=== PATIENT | male | born 1985 | race Caucasian/White ===

== ENCOUNTER 2016-08-08 22:03 | Emergency (ER) | payer OTHER ==
[2016-08-08 22:28] VITALS: BP 125/65; PULSE 88; RESP 18; TEMP 98.3
[2016-08-08] MEDS ORDERED: CYCLOBENZAPRINE 10MG STARTER 3 TAB BTL PO STA (22:42)
[2016-08-08] MEDS ORDERED: ACET/COD 300 MG/30 MG STARTER PACK 6 TAB BTL PO STA (22:42)
--- NOTE | 2016-08-08 22:46 | ED ---
Back Pain HPI - General Chief Complaint: Back Pain/Injury Stated Complaint: Back Pain Time Seen by Provider: 08/08/16 22:26 Source: patient, RN notes reviewed, old records reviewed Limitations: no limitations - History of Present Illness Initial Comments: Patient is a 31-year-old male with chief complaint of lower back pain for approximately 3 days. Patient reports that he thinks that this is caused from walking up incorrectly. States that the pain was fine 2 days ago however today it became much worse. He reports he took one of his mother's tramadol. Patient states that the pain is mainly over the lower back pain. Patient denies any recent fever, chills, shortness of breath, chest pain, back pain, abdominal pain, nausea vomiting, numbness or tingling, dysuria or hematuria, constipation or diarrhea, headaches or visual changes, or any other current symptoms - Related Data Home Medications Medication Instructions Recorded Confirmed INSULIN LISPRO (humaLOG) [humaLOG] 18 units SQ AC-TID 02/21/14 03/17/16 Omeprazole [PriLOSEC] 20 mg PO AC-BRKFST 10/02/15 03/17/16 Previous Rx's Medication Instructions Recorded Syringe & Needle,Insulin,1 ml 1 syr SQ DIRECTED #25 each 02/21/14 [Insulin Syringe 29G 1/2" 1ml] Insulin Aspart [NovoLOG] 18 unit SQ DAILY #1 bottle 06/19/15 Azithromycin [Zithromax Z-pack] 250 mg PO DIRECTED #6 tab 03/17/16 Promethazine/Dextromethorphan 5 ml PO TID #60 ml 03/17/16 [Phenergan DM Syrup] Pseudoephedrine 12Hr [Sudafed 12Hr] 120 mg PO Q12H #10 tablet.er 03/17/16 Acetaminophen-Codeine 300-30mg 1 tab PO Q4H PRN #12 tablet 08/08/16 [Tylenol #3] Cyclobenzaprine [Flexeril] 10 mg PO TID #30 tab 08/08/16 Allergies Allergy/AdvReac Type Severity Reaction Status Date / Time No Known Allergies Allergy Verified 03/17/16 21:27 Review of Systems ROS Statement: Those systems with pertinent positive or pertinent negative responses have been documented in the HPI. ROS Other: All systems not noted in ROS Statement are negative. Past Medical History Past Medical History: Diabetes Mellitus History of Any Multi-Drug Resistant Organisms: None Reported Additional Past Surgical History / Comment(s): undescended testicle Past Psychological History: No Psychological Hx Reported Smoking Status: Never smoker Past Alcohol Use History: None Reported Past Drug Use History: None Reported General Exam Limitations: no limitations General appearance: alert, in no apparent distress Head exam: Present: atraumatic, normocephalic, normal inspection Eye exam: Present: normal appearance, PERRL, EOMI. Absent: scleral icterus, conjunctival injection, periorbital swelling ENT exam: Present: normal exam, mucous membranes moist Neck exam: Present: normal inspection. Absent: tenderness, meningismus, lymphadenopathy Respiratory exam: Present: normal lung sounds bilaterally. Absent: respiratory distress, wheezes, rales, rhonchi, stridor Cardiovascular Exam: Present: regular rate, normal rhythm, normal heart sounds. Absent: systolic murmur, diastolic murmur, rubs, gallop, clicks GI/Abdominal exam: Present: soft, normal bowel sounds. Absent: distended, tenderness, guarding, rebound, rigid Extremities exam: Present: normal inspection, full ROM, normal capillary refill. Absent: tenderness, pedal edema, joint swelling, calf tenderness Back exam: Present: normal inspection, tenderness (lumbar spine tenderness. ) Neurological exam: Present: alert, oriented X3, CN II-XII intact Psychiatric exam: Present: normal affect, normal mood Skin exam: Present: warm, dry, intact, normal color. Absent: rash Course Vital Signs 08/08/16 22:22 Temperature 98.3 F Pulse Rate 88 Respiratory 18 Rate Blood Pressure 125/65 O2 Sat by Pulse 98 Oximetry Medical Decision Making - Medical Decision Making Patient is a 31 year old male with lumbar spine pain for 3 days, worse with movement. Patient denies saddle anesthesias and pain radiating down the leg. Patient given flexeril, and tylenol 3. Patient advised to follow up with PCP. Patient understands treatment plan and will comply. Xray is negative for any acute process. Disposition Clinical Impression: Lower back pain Disposition: HOME SELF-CARE Condition: Good Instructions: Acute Low Back Pain (ED) Additional Instructions: Patient advised to rest, apply heat and ice to the back and to do passive stretching. Follow-up with primary care provider in the next 1-2 days. Return for any alarming signs or symptoms occur. Prescriptions: Acetaminophen-Codeine 300-30mg [Tylenol #3] 1 tab PO Q4H PRN #12 tablet PRN Reason: Pain Cyclobenzaprine [Flexeril] 10 mg PO TID #30 tab Referrals: Luis Fernando Delgado DO [Primary Care Provider] - 1-2 days Time of Disposition: 23:00
--- NOTE | 2016-08-08 23:25 | XR ---
EXAMINATION TYPE: XR lumbar spine 2 or 3V DATE OF EXAM: 08/08/2016 10:42 PM COMPARISON: NONE HISTORY: Back pain today TECHNIQUE: 3 views FINDINGS: Vertebra have fairly normal spacing and alignment. Posterior elements are intact. Sacroilia c joints appear normal. I see no compression fracture. IMPRESSION: Negative lumbar spine exam.
== END 2016-08-08 23:45 | disposition home or self-care (01) ==
LOC: EC 22:03
DX: M54.5 Low back pain (principal); E11.9 Type 2 diabetes mellitus without complications; Z79.899 Other long term (current) drug therapy; Z79.4 Long term (current) use of insulin
CPT/HCPCS: 72100; 99283

== ENCOUNTER 2017-06-25 18:52 | Emergency (ER) | payer OTHER ==
[2017-06-25 19:18] VITALS: BP 136/68
--- NOTE | 2017-06-25 21:09 | XR ---
EXAMINATION TYPE: XR chest 2V DATE OF EXAM: 06/25/2017 COMPARISON: 04/14/2015 HISTORY: Hemoptysis TECHNIQUE: Frontal and lateral views of the chest are obtained. FINDINGS: There is no focal air space opacity, pleural effusion, or pneumothorax seen. The cardiac silhouette size is within normal limits. The osseous structures are intact. IMPRESSION: No acute cardiopulmonary process.
--- NOTE | 2017-06-25 21:20 | ED ---
General Adult HPI - General Chief complaint: Upper Respiratory Infection Stated complaint: Coughing up blood Time Seen by Provider: 06/25/17 19:56 Source: patient, RN notes reviewed Mode of arrival: ambulatory Limitations: no limitations - History of Present Illness Initial comments: This is a 32-year-old male presents emergency department with chief complaint of cough. Patient states that for the past 4 days he has been having 3-4 episodes of coughing each day. He states that he has been coughing up blood. Denies any shortness of breath or chest pain. He states that he is worried about lung cancer as his mother has cancer. Patient also complains of some sinus drainage. Denies fever, chills, chest pain, shortness of breath, abdominal pain, nausea or vomiting, constipation or diarrhea, dysuria or hematuria, numbness or tingling, headache or vision changes. - Related Data Home Medications Medication Instructions Recorded Confirmed INSULIN LISPRO (humaLOG) [humaLOG] 20 units SQ AC-TID 02/21/14 06/25/17 Insulin Glargine [Lantus] 50 unit SQ HS 06/25/17 06/25/17 Naproxen Sodium [Aleve] 440 mg PO DAILY PRN 06/25/17 06/25/17 Allergies Allergy/AdvReac Type Severity Reaction Status Date / Time No Known Allergies Allergy Verified 06/25/17 20:05 Review of Systems ROS Statement: Those systems with pertinent positive or pertinent negative responses have been documented in the HPI. ROS Other: All systems not noted in ROS Statement are negative. Past Medical History Past Medical History: Diabetes Mellitus History of Any Multi-Drug Resistant Organisms: None Reported Additional Past Surgical History / Comment(s): undescended testicle, Past Psychological History: No Psychological Hx Reported Smoking Status: Never smoker Past Alcohol Use History: Occasional Past Drug Use History: None Reported General Exam - General Exam Comments Initial Comments: General: Awake and alert, well-developed; in no apparent distress. HEENT: Head atraumatic, normocephalic. Pupils are equal, round and reactive to light. Extraocular movements intact. Oropharynx moist without erythema. Exudates noted on left tonsil. Neck: Supple. Normal ROM. No adenopathy. Cardiovascular: Regular rate and rhythm. No murmurs, rubs or gallops. Chest symmetrical. Respiratory: Lungs clear to auscultation bilaterally. No wheezes, rales or rhonchi. Normal respiratory effort with no use of accessory muscles. Musculoskeletal: Normal ROM, no tenderness bilateral upper and lower extremities. Ambulating normally. Skin: Tat[place], warm and dry without rashes or lesions. Neurological: Alert and oriented x3. CN II-XII grossly intact. Speech is fluent and answers are appropriate. No focal neuro deficits. Psychiatric: Normal mood and affect. No overt signs of depression or anxiety noted. Limitations: no limitations Course Vital Signs 06/25/17 19:13 Temperature 98.9 F Pulse Rate 98 Respiratory 17 Rate Blood Pressure 136/68 O2 Sat by Pulse 98 Oximetry Medical Decision Making - Medical Decision Making This is a 32-year-old male who presents to the emergency department with chief complaint of cough. Patient states that he's been coughing up phlegm with blood. He states he is concerned that he may have lung cancer. Chest x-ray revealed no acute abnormalities. Rapid strep was negative. Patient's vital signs are stable and he is afebrile. Recommended follow-up with his primary care provider. Return parameters were discussed. Patient is in agreement with plan and voices understanding. All questions were answered. - Lab Data Lab Results 06/25/17 Range/Units 20:14 Group A Strep Rapid Negative (Negative) - Radiology Data Radiology results: report reviewed Chest x-ray impression: No acute cardiopulmonary process. Disposition Clinical Impression: Upper respiratory infection Disposition: HOME SELF-CARE Condition: Good Instructions: Upper Respiratory Infection (ED) Additional Instructions: Please follow up with primary care provider within 1-2 days. Return to emergency department if symptoms should worsen or any concerns arise. Referrals: Luis Fernando Delgado DO [Primary Care Provider] - 1-2 days Time of Disposition: 21:35
[2017-06-25 21:42] VITALS: PULSE 80; RESP 20; TEMP 97.8
== END 2017-06-25 21:41 | disposition home or self-care (01) ==
LOC: EC 18:52
DX: J06.9 Acute upper respiratory infection, unspecified (principal); E11.9 Type 2 diabetes mellitus without complications; Z79.4 Long term (current) use of insulin
CPT/HCPCS: 71046; 87081; 87430; 99283

== ENCOUNTER 2019-08-11 13:14 | Emergency (ER) | payer OTHER ==
[2019-08-11 13:34] VITALS: RESP 18; TEMP 97.6
[2019-08-11] MEDS ORDERED: SODIUM CHLORIDE 0.9% 1,000 ML IV STA (13:46)
[2019-08-11] MEDS ORDERED: MAG HYDROX/AL HYDROX/SIMETH 30 ML, HYOSCYAMINE ELIXIR 10 ML PO STA ×2 (14:04)
[2019-08-11] MEDS ORDERED: PANTOPRAZOLE 40 MG/10 ML VIAL IVP STA (14:04)
--- NOTE | 2019-08-11 14:08 | ED ---
Nausea/Vomiting/Diarrhea HPI - General Chief complaint: Nausea/Vomiting/Diarrhea Stated complaint: diarrhea, cough Time Seen by Provider: 08/11/19 13:46 Source: patient, RN notes reviewed Mode of arrival: ambulatory Limitations: no limitations - History of Present Illness Initial comments: 34-year-old male presents emergency Department with multiple complaints. Patient states that he was treated for 20 days for a cough, sore throat. Patient was on 2 different antibiotics. Patient states that he still has a slight cough but states he's been having reflux issues now, diarrhea. Patient states he said no prior abdominal surgeries. Patient reports no fever, chills, headache or dizziness. Patient states that he cannot work at this time due to the diarrhea. Patient denies any melena or hematochezia and no hematemesis copremesis. - Related Data Home Medications Medication Instructions Recorded Confirmed INSULIN LISPRO (humaLOG) [humaLOG] 25 units SQ AC-TID 02/21/14 07/05/17 Insulin Glargine,Hum.rec.anlog 50 unit SQ HS 07/05/17 07/05/17 [Basaglar Kwikpen U-100] Previous Rx's Medication Instructions Recorded Albuterol Inhaler [Ventolin Hfa 1 - 2 puff INHALATION Q6HR PRN #1 07/06/17 Inhaler] inhaler Amoxic-Pot Clav 875-125Mg 1 tab PO Q12HR #10 tablet 07/06/17 [Augmentin 875-125] Loratadine-Pseudoeph 5-120 mg 1 each PO Q12HR tab.er.12h 07/06/17 [Claritin-D 12 Hour] Melatonin 3 mg PO HS tablet 07/06/17 Oxymetazoline 0.05% Nasl [place] 3 spray EA NOSTRIL TID #1 bottle 07/06/17 [Afrin 0.05% Nasal [place]] Psyllium Husk 100% [Metamucil 6 gm PO HS packet 07/06/17 Packet] Dicyclomine [Bentyl] 20 mg PO TID #30 tablet 08/11/19 Pantoprazole [Protonix] 40 mg PO DAILY #14 tablet. 08/11/19 Allergies Allergy/AdvReac Type Severity Reaction Status Date / Time No Known Allergies Allergy Verified 08/11/19 13:30 Review of Systems ROS Statement: Those systems with pertinent positive or pertinent negative responses have been documented in the HPI. ROS Other: All systems not noted in ROS Statement are negative. Past Medical History Past Medical History: Diabetes Mellitus Additional Past Medical History / Comment(s): polyps History of Any Multi-Drug Resistant Organisms: None Reported Additional Past Surgical History / Comment(s): undescended testicle Past Psychological History: No Psychological Hx Reported Smoking Status: Never smoker Past Alcohol Use History: Occasional Past Drug Use History: None Reported General Exam Limitations: no limitations General appearance: alert, in no apparent distress Head exam: Present: atraumatic, normocephalic, normal inspection Eye exam: Present: normal appearance, PERRL, EOMI. Absent: scleral icterus, conjunctival injection, periorbital swelling ENT exam: Present: normal exam, normal oropharynx, mucous membranes moist, TM's normal bilaterally Neck exam: Present: normal inspection, full ROM. Absent: tenderness, meningismus, lymphadenopathy Respiratory exam: Present: normal lung sounds bilaterally. Absent: respiratory distress, wheezes, rales, rhonchi, stridor Cardiovascular Exam: Present: regular rate, normal rhythm, normal heart sounds. Absent: systolic murmur, diastolic murmur, rubs, gallop, clicks GI/Abdominal exam: Present: soft, tenderness (Mild epigastric), normal bowel sounds. Absent: distended, guarding, rebound, rigid Back exam: Absent: CVA tenderness (R), CVA tenderness (L) Neurological exam: Present: alert Skin exam: Present: warm, dry, intact, normal color. Absent: rash Course Vital Signs 08/11/19 08/11/19 13:30 15:14 Temperature 97.6 F Pulse Rate 89 62 Respiratory 18 18 Rate Blood Pressure 115/70 148/51 O2 Sat by Pulse 98 95 Oximetry Medical Decision Making - Medical Decision Making Patient presented for multiple complaints. Laboratory does show hyperglycemia though this is better than his usual patient secondary to difficulty affording insulin. Patient was given subcu insulin in emergency department. Patient was hydrated states he does feel improved. Patient's had ongoing reflux issues and which she'll be prescribed Protonix by see consult take [id number] Tums or Maalox. Patient was also given Bentyl for bowel spasms. - Lab Data Result diagrams: 08/11/19 13:59 08/11/19 13:59 Lab Results 08/11/19 08/11/19 08/11/19 Range/Units 13:59 13:59 15:23 WBC 5.7 (3.8-10.6) k/uL RBC 5.76 (4.30-5.90) m/uL Hgb 15.9 (13.0-17.5) gm/dL Hct 48.0 (39.0-53.0) % MCV 83.3 (80.0-100.0) fL MCH 27.6 (25.0-35.0) pg MCHC 33.2 (31.0-37.0) g/dL RDW 13.2 (11.5-15.5) % Plt Count 143 L (150-450) k/uL Neutrophils % 71 % Lymphocytes % 20 % Monocytes % 4 % Eosinophils % 3 % Basophils % 0 % Neutrophils # 4.0 (1.3-7.7) k/uL Lymphocytes # 1.1 (1.0-4.8) k/uL Monocytes # 0.2 (0-1.0) k/uL Eosinophils # 0.2 (0-0.7) k/uL Basophils # 0.0 (0-0.2) k/uL Sodium 137 (137-145) mmol/L Potassium 4.4 (3.5-5.1) mmol/L Chloride 105 (98-107) mmol/L Carbon Dioxide 21 L (22-30) mmol/L Anion Gap 11 mmol/L BUN 20 (9-20) mg/dL Creatinine 0.90 (0.66-1.25) mg/dL Est GFR (CKD-EPI)AfAm >90 (>60 ml/min/1.73 sqM) Est GFR (CKD-EPI)NonAf >90 (>60 ml/min/1.73 sqM) Glucose 308 H (74-99) mg/dL Calcium 9.5 (8.4-10.2) mg/dL Total Bilirubin 2.1 H (0.2-1.3) mg/dL AST 21 (17-59) U/L ALT 22 (4-49) U/L Alkaline Phosphatase 69 (38-126) U/L Total Protein 7.2 (6.3-8.2) g/dL Albumin 4.5 (3.5-5.0) g/dL Lipase 67 (23-300) U/L Urine Color Light Yellow Urine Appearance Clear (Clear) Urine pH 6.0 (5.0-8.0) Ur Specific [place] 1.026 (1.001-1.035) Urine Protein Trace H (Negative) Urine Glucose (UA) 4+ H (Negative) Urine Ketones Negative (Negative) Urine Blood Negative (Negative) Urine Nitrite Negative (Negative) Urine Bilirubin Negative (Negative) Urine Urobilinogen <2.0 (<2.0) mg/dL Ur Leukocyte Esterase Negative (Negative) Disposition Clinical Impression: GERD (gastroesophageal reflux disease), Spasm of bowel Disposition: HOME SELF-CARE Condition: Stable Instructions (If sedation given, give patient instructions): Diet for Stomach Ulcers and Gastritis (ED), Gastroesophageal Reflux Disease (ED) Additional Instructions: Please return to the Emergency Department if symptoms worsen or any other concerns. Prescriptions: Dicyclomine [Bentyl] 20 mg PO TID #30 tablet Pantoprazole [Protonix] 40 mg PO DAILY #14 tablet.dr Is patient prescribed a controlled substance at d/c from ED?: No Referrals: Luis Fernando Delgado DO [Primary Care Provider] - 1-2 days Time of Disposition: 15:53
[2019-08-11 14:27] LABS: ALT 22 U/L (4-49); AST 21 U/L (17-59); African American GFR (CKD) >90 (>60 ml/min/1.73 sqM); Albumin 4.5 g/dL (3.5-5.0); Alkaline Phosphatase 69 U/L (38-126); Anion Gap 11 mmol/L; Blood Urea Nitrogen 20 mg/dL (9-20); Calcium 9.5 mg/dL (8.4-10.2); Carbon Dioxide 21 mmol/L (22-30); Chloride 105 mmol/L (98-107); Glucose 308 mg/dL (74-99); Non-African American GFR(CKD) >90 (>60 ml/min/1.73 sqM); Potassium 4.4 mmol/L (3.5-5.1); Sodium 137 mmol/L (137-145); Total Bilirubin 2.1 mg/dL (0.2-1.3); Total Protein 7.2 g/dL (6.3-8.2)
[2019-08-11 14:37] LABS: Basophils % (A) 0 %; Eosinophils # (A) 0.2 k/uL (0-0.7); Eosinophils % (A) 3 %; HGB 15.9 gm/dL (13.0-17.5); Lymphocytes # (A) 1.1 k/uL (1.0-4.8); Lymphocytes % (A) 20 %; MCH 27.6 pg (25.0-35.0); MCHC 33.2 g/dL (31.0-37.0); MCV 83.3 fL (80.0-100.0); Monocytes # (A) 0.2 k/uL (0-1.0); Monocytes % (A) 4 %; Neutrophils % (A) 71 %; Platelet Count 143 k/uL (150-450); RBC 5.76 m/uL (4.30-5.90); RDW 13.2 % (11.5-15.5); WBC 5.7 k/uL (3.8-10.6)
--- NOTE | 2019-08-11 14:37 | XR ---
EXAMINATION TYPE: XR chest 2V DATE OF EXAM: 08/11/2019 COMPARISON: 07/05/2017 HISTORY: Cough TECHNIQUE: Frontal and lateral views of the chest are obtained. FINDINGS: There is no focal air space opacity, pleural effusion, or pneumothorax seen. The cardiac silhouette size is within normal limits. The osseous structures are intact. IMPRESSION: No acute cardiopulmonary process.
--- NOTE | 2019-08-11 14:43 | XR ---
EXAMINATION TYPE: XR KUB DATE OF EXAM: 08/11/2019 2:28 PM CLINICAL HISTORY: Cough, nausea, and vomiting for 2 days. TECHNIQUE: Single upright image of the abdomen is obtained. COMPARISON: 12/27/2015. FINDINGS: Mild S-shaped scoliosis of the thoracolumbar spine. The liver is mildly enlarged. No dilate d large or small bowel. No suspicious calcification in the abdomen or pelvis. No pneumoperitoneum. Niki ng bases are well aerated. IMPRESSION: Nonobstructive bowel gas pattern. Incidentally noted hepatomegaly.
[2019-08-11] MEDS ORDERED: INSULIN ASPART (NovoLOG) 100 UNIT/ML VIAL SQ ONE (15:05)
[2019-08-11 15:17] VITALS: BP 148/51; PULSE 62
[2019-08-11 15:31] LABS: Appearance,Urine Clear (Clear); Bilirubin,Urine Negative (Negative); Blood,Urine Negative (Negative); Color,Urine Light Yellow; Glucose,Urine (UA) 4+ (Negative); Ketones,Urine Negative (Negative); Leukocyte Esterase,Urine Negative (Negative); Nitrite,Urine Negative (Negative); Protein,Urine Trace (Negative); Specific Gravity,Urine 1.026 (1.001-1.035); Urobilinogen,Urine <2.0 mg/dL (<2.0)
== END 2019-08-11 16:00 | disposition home or self-care (01) ==
LOC: EC 13:14
DX: K21.9 Gastro-esophageal reflux disease without esophagitis (principal); K59.8 Other specified functional intestinal disorders; E11.65 Type 2 diabetes mellitus with hyperglycemia; Z79.4 Long term (current) use of insulin; Z87.19 Personal history of other diseases of the digestive system
CPT/HCPCS: 36415; 80053; 83690; 85025; 81003; 71046; 74018; 99284; 96374; 96361; C9113

== ENCOUNTER 2020-06-13 14:49 | Emergency (ER) | payer OTHER ==
[2020-06-13 14:54] VITALS: TEMP 98.3
--- NOTE | 2020-06-13 14:59 | ED ---
ENT HPI - General Chief complaint: ENT Stated complaint: vomiting Time Seen by Provider: 06/13/20 14:58 Source: patient Mode of arrival: ambulatory Limitations: no limitations - History of Present Illness Initial comments: 35-year-old male presenting to the emergency department with a chief complaint of steak stuck in the throat. Patient states he was eating steak last night around 8 PM when a piece became lodged in esophagus. Patient states he was able to partially cough up some of the food but then he was not able to keep anything down. Patient states he can feel the esophageal foreign body and it is not moving. Patient denies any shortness of breath. Does report continuous salivation. Denies any sore throat. - Related Data Home Medications Medication Instructions Recorded Confirmed Insulin Glargine/Lixisenatide 50 units SQ HS 06/13/20 06/13/20 [[place] 100 Unit-33 Mcg/ml Pen] Insulin Lispro [humaLOG Kwikpen] 25 unit SQ AC-TID 06/13/20 06/13/20 Insulin Lispro [humaLOG Kwikpen] See Protocol SQ AC-TID 06/13/20 06/13/20 Allergies Allergy/AdvReac Type Severity Reaction Status Date / Time No Known Allergies Allergy Verified 06/13/20 18:46 Review of Systems ROS Statement: Those systems with pertinent positive or pertinent negative responses have been documented in the HPI. ROS Other: All systems not noted in ROS Statement are negative. Past Medical History Past Medical History: Diabetes Mellitus Additional Past Medical History / Comment(s): polyps History of Any Multi-Drug Resistant Organisms: None Reported Additional Past Surgical History / Comment(s): undescended testicle Past Psychological History: No Psychological Hx Reported Smoking Status: Never smoker Past Alcohol Use History: Occasional Past Drug Use History: None Reported General Exam Limitations: no limitations General appearance: alert, in no apparent distress Head exam: Present: atraumatic, normocephalic, normal inspection Eye exam: Present: normal appearance, PERRL, EOMI Pupils: Present: normal accommodation ENT exam: Present: normal exam, normal oropharynx, mucous membranes moist, TM's normal bilaterally, normal external ear exam Neck exam: Present: normal inspection, full ROM. Absent: tenderness Respiratory exam: Present: normal lung sounds bilaterally. Absent: respiratory distress, wheezes, rales Cardiovascular Exam: Present: regular rate, normal rhythm, normal heart sounds. Absent: systolic murmur, diastolic murmur GI/Abdominal exam: Present: soft. Absent: distended, tenderness, guarding, rebound Extremities exam: Present: normal inspection, full ROM, normal capillary refill. Absent: tenderness, pedal edema, joint swelling Back exam: Present: normal inspection, full ROM. Absent: tenderness, CVA tenderness (R), CVA tenderness (L) Neurological exam: Present: alert, oriented X3 Psychiatric exam: Present: normal affect, normal mood Skin exam: Present: warm, dry, intact, normal color Course Vital Signs 06/13/20 06/13/20 06/13/20 14:50 15:41 18:00 Temperature 98.3 F Pulse Rate 115 H 137 H 96 Respiratory 20 18 18 Rate Blood Pressure 123/79 107/57 88/49 O2 Sat by Pulse 98 95 99 Oximetry 06/13/20 18:41 Temperature Pulse Rate 98 Respiratory 18 Rate Blood Pressure 132/78 O2 Sat by Pulse 100 Oximetry Medical Decision Making - Medical Decision Making 35-year-old male presenting to the emergency department with a chief complaint of a steak stuck in his throat. On physical examination, patient is not in any distress. Patent airways. Initial attempt with Reglan, nitro, Valium and glucagon. I gave the patient carbonated drink with no significant improvement in his symptoms. I spoke with who performed endoscopy and was able to remove the esophageal foreign body. Patient was observed after the sedation. Patient will be discharged. Return parameters discussed with patient she was advised to follow-up with the GI specialist. Case discussed with physician. Disposition Clinical Impression: Esophageal foreign body Disposition: HOME SELF-CARE Condition: Stable Instructions (If sedation given, give patient instructions): Esophageal Foreign Body (ED), Moderate Sedation (ED), Procedural Sedation (ED) Additional Instructions: Follow-up with a GI specialist. Return to emergency department if symptoms worsen. Is patient prescribed a controlled substance at d/c from ED?: No Referrals: Luis Fernando Delgado DO [Primary Care Provider] - 1-2 days Margot Mendoza MD [STAFF PHYSICIAN] - 1-2 days Time of Disposition: 19:04
[2020-06-13] MEDS ORDERED: SODIUM CHLORIDE 0.9% 1,000 ML IV STA (15:03)
[2020-06-13] MEDS ORDERED: DIAZEPAM 5 MG/ML 2 ML INJ IVP STA (15:04)
[2020-06-13] MEDS ORDERED: GLUCAGON 1 MG/ML VIAL IVP STA (15:04)
[2020-06-13] MEDS ORDERED: NITROGLYCERIN SL TABS 0.4 MG TAB SUBLINGUAL STA (15:04)
[2020-06-13] MEDS ORDERED: METOCLOPRAMIDE 5 MG/ML 2 ML VIAL IVP STA (15:04)
[2020-06-13 15:45] VITALS: RESP 18
[2020-06-13] MEDS ORDERED: PROPOFOL 10 MG/ML 20 ML VIAL IV ONE (17:29)
[2020-06-13] MEDS ORDERED: MIDAZOLAM 2 MG/2 ML VIAL ONE (17:29)
[2020-06-13] MEDS ORDERED: LIDOCAINE 1% INJ 10MG/ML (20 ML MDV) ONE (17:29)
[2020-06-13] MEDS ORDERED: KETAMINE 10 MG/ML 20 ML VIAL ONE (17:29)
[2020-06-13] MEDS ORDERED: SODIUM CHLORIDE 0.9% 1,000 ML IV ONE (17:30)
[2020-06-13 18:42] VITALS: BP 132/78; PULSE 98
--- NOTE | 2020-06-13 19:56 | CONS ---
CONSULTATION DATE OF SERVICE: June 13, 2020. REQUESTING PHYSICIAN: Dr. Delgado. REASON FOR CONSULTATION: Acute food impaction. HISTORY OF PRESENT ILLNESS: The patient is a 35-year-old white male with longstanding history of diabetes mellitus, came to the emergency room complaining of acute food impaction. He was eating a piece of steak for dinner last night and could not swallow any further. He never had these symptoms in the past. He does have intermittent dysphagia for the last 2 years with steak and usually drinks water in part and resolves. No heartburn. PAST MEDICAL HISTORY: Hypertension, diabetes mellitus, and anxiety depression. MEDICATIONS: At home, Humalog, Seroquel. ALLERGIES: No known drug allergies. SOCIAL HISTORY: No smoking. No alcohol use. FAMILY HISTORY: Unremarkable. REVIEW OF SYSTEMS: CARDIOPULMONARY: No chest pain or shortness of breath. GENITOURINARY: No dysuria or hematuria. MUSCULOSKELETAL unremarkable. Skin unremarkable. Endocrine: Type 1 diabetes mellitus. CONSTITUTIONAL: No recent weight loss. PHYSICAL EXAMINATION: Appears comfortable. Vital signs stable. Blood pressure 133/86, pulse rate 92 and afebrile. HEENT examination unremarkable. Conjunctivae pink. Sclerae anicteric. Oral cavity no lesions. Neck no JVD. No lymph node enlargement. CHEST was clear to auscultation. HEART: Regular rate and rhythm. ABDOMEN: Soft. Bowel sounds are positive. No organomegaly. EXTREMITIES: No pedal edema. SKIN no rashes. NEUROLOGIC: Alert and oriented x3. No focal deficits. LAB: No labs available from today. IMPRESSION: 1. Acute food impaction. 2. Longstanding history of diabetes mellitus. RECOMMENDATIONS: We will proceed with EGD, foreign body removal in the emergency room on an emergency basis. Risks, benefits and complications were discussed with the patient. He is agreeable to it. Thank you for this consultation. MMODL / IJN: [id number] /
--- NOTE | 2020-06-13 20:23 | PCN ---
PROCEDURE NOTE DATE OF DICTATION: June 13, 2020. REQUESTING PHYSICIAN: Dr. Adelia Delgado. BRIEF HISTORY: A 35-year-old white male came to the emergency room with acute food impaction. He was eating steak for dinner last night and could not swallow any further. He felt somewhat better early this morning and able to swallow little sips of water, but this afternoon he could not swallow any further. Could not to tolerate his own secretions. Came to the emergency room and is scheduled for an upper endoscopy on an emergency basis. PROCEDURE PERFORMED: EGD with foreign body removal and biopsy. ANESTHESIA: IV sedation per anesthesia. PROCEDURE DETAILS: After informed consent was obtained from the patient, the procedure was performed in the ER. IV conscious sedation was administered by Anesthesia under continuous monitoring. The Olympus GIF-190T video endoscope was inserted into the mouth. Esophagus intubated without any difficulty and was gradually advanced to the distal esophagus. There was large food bolus impacted in the distal esophagus. Initially using a snare, part of the piece of meat was retracted and subsequently the rest of the meat was pushed into the stomach. The scope at this time was advanced into the stomach and duodenum. The bulb and second part of the duodenum appeared normal. Scope was then withdrawn to the stomach, adequately insufflated with air and upon careful examination the mucosa of the antrum, body, cardia and fundus appeared normal. Scope was then withdrawn to the esophagus. There was a small hiatal hernia noted. There was early distal esophageal stricture identified but this did not impede the passage of the scope. There was mucosal erythema with friability noted in the distal esophagus consistent with LA grade B reflux esophagitis. Also, the mucosal folds involving the mid and distal esophagus were thickened with longitudinal ridges and furrows suspicious for eosinophilic esophagitis and biopsies were done from this area to rule out eosinophilic esophagitis. The patient tolerated the procedure well. IMPRESSION: 1. Distal esophageal food impaction status post removal as described above. 2. Early distal esophageal stricture with LA grade C reflux esophagitis. 3. Longitudinal ridges and furrows of the mid and distal esophagus suspicious for eosinophilic esophagitis status post multiple biopsies. RECOMMENDATIONS: Findings of this examination were discussed with the patient. At this time, he will remain on a clear liquid diet today. He was advised to resume omeprazole 20 mg twice daily. He will follow up in the office in 2 weeks to discuss the biopsy results. MMODL / IJN: [id number] /
== END 2020-06-13 19:11 | disposition home or self-care (01) ==
LOC: EC 14:49
DX: T18.128A Food in esophagus causing other injury, initial encounter (principal); E11.9 Type 2 diabetes mellitus without complications; Z79.4 Long term (current) use of insulin; X58.XXXA Exposure to other specified factors, initial encounter
CPT/HCPCS: 99284 ×2; 96374 ×2; 96375 ×3; 96361 ×2; 88305; 43239; 43247; J2250; J1610; J2765; J3360; J2001; J2704

== ENCOUNTER → 2022-07-11 | Outpatient (CLI) | payer OTHER ==
--- NOTE | 2022-07-11 12:50 | US ---
EXAMINATION TYPE: US abdomen complete DATE OF EXAM: 07/11/2022 COMPARISON: NONE CLINICAL HISTORY: K52.9 NONINFECTIVE GASTROENTERITIS AND COLITIS, UN. Pt states chronic diarrhea x 3- 4 years, ABD pain TECHNIQUE: Multiple sonographic images of the abdomen are obtained. FINDINGS: EXAM MEASUREMENTS: Liver Length: 17.6 cm Gallbladder Wall: 0.2 cm CBD: 0.6 cm Spleen: 12.9 cm Right Kidney: 11.5 x 4.8 x 5.0 cm Left Kidney: 11.0 x 5.2 x 6.0 cm BEER BREWER NOTES: Pancreas: Body wnl, head and tail obscured by overlying bowel gas Liver: Visualized portions appeared wnl Gallbladder: wnl Evidence for sonographic Mariee's sign: No CBD: wnl Spleen: Upper limits of normal for size Right Kidney: wnl, lower pole gassed out Left Kidney: wnl, lower pole gassed out Upper IVC: wnl Abd Aorta: wnl The liver is homogenous. The intrahepatic portion of the IVC and proximal abdominal aorta are within normal limits. There is no evidence of cholelithiasis. Common bile duct is unremarkable. The visu alized portions of the pancreas are homogenous. The spleen is unremarkable. Kidneys are symmetric a nd free of hydronephrosis. No renal lesions are seen. IMPRESSION: No significant abnormality seen.
== END | disposition home or self-care (01) ==
LOC: RADUSWWP 09:34
PROVIDERS: ATTEND Family Medicine
DX: K52.9 Noninfective gastroenteritis and colitis, unspecified (principal)
CPT/HCPCS: 76700

== ENCOUNTER 2023-05-05 10:16 | Emergency (ER) | payer OTHER ==
[2023-05-05 10:35] VITALS: BP 103/64; PULSE 119; RESP 20; TEMP 99.6
[2023-05-05] MEDS ORDERED: ACETAMINOPHEN TAB 500 MG TAB PO STA (10:40)
--- NOTE | 2023-05-05 10:45 | ED ---
General Adult HPI - General Chief complaint: Upper Respiratory Infection Stated complaint: dizzy, phlem coming up Time Seen by Provider: 05/05/23 10:32 Source: patient, RN notes reviewed Mode of arrival: ambulatory Limitations: no limitations - History of Present Illness Initial comments: Patient is a pleasant 37-year-old male presenting to the emergency department after eating well. Onset of symptoms was 3 days ago. Patient's girlfriend was diagnosed today with influenza A. Patient does feel a little bit dizzy. Decreased appetite however patient is tolerating fluids. Patient has not taken Tylenol or Motrin. Patient does have cough with yellow sputum. Patient does have congestion. - Related Data Home Medications Medication Instructions Recorded Confirmed Insulin Glargine/Lixisenatide 50 units SQ HS 06/13/20 06/13/20 [Soliqua 100 Unit-33 Mcg/ml Pen] Insulin Lispro [humaLOG Kwikpen] 25 unit SQ AC-TID 06/13/20 06/13/20 Insulin Lispro [humaLOG Kwikpen] See Protocol SQ AC-TID 06/13/20 06/13/20 Previous Rx's Medication Instructions Recorded Oseltamivir Phosphate 75 mg PO BID #10 capsule 05/05/23 Allergies Allergy/AdvReac Type Severity Reaction Status Date / Time No Known Allergies Allergy Verified 05/05/23 10:24 Review of Systems ROS Statement: Those systems with pertinent positive or pertinent negative responses have been documented in the HPI. ROS Other: All systems not noted in ROS Statement are negative. Constitutional: Reports: fever Eyes: Denies: eye pain ENT: Reports: congestion. Denies: ear pain Respiratory: Reports: cough Cardiovascular: Denies: chest pain Endocrine: Reports: fatigue Gastrointestinal: Denies: abdominal pain, vomiting Musculoskeletal: Denies: back pain Past Medical History Past Medical History: Diabetes Mellitus Additional Past Medical History / Comment(s): polyps History of Any Multi-Drug Resistant Organisms: None Reported Additional Past Surgical History / Comment(s): undescended testicle Past Psychological History: No Psychological Hx Reported Smoking Status: Never smoker Past Alcohol Use History: Occasional Past Drug Use History: None Reported General Exam Limitations: no limitations General appearance: alert, in no apparent distress Eye exam: Present: normal appearance Neck exam: Present: normal inspection Respiratory exam: Present: normal lung sounds bilaterally Cardiovascular Exam: Present: regular rate, normal rhythm GI/Abdominal exam: Present: soft. Absent: tenderness Extremities exam: Present: normal inspection Neurological exam: Present: alert Psychiatric exam: Present: normal affect, normal mood Skin exam: Present: normal color Course Vital Signs 05/05/23 10:22 Temperature 99.6 F Pulse Rate 119 H Respiratory 20 Rate Blood Pressure 103/64 O2 Sat by Pulse 95 Oximetry Medical Decision Making - Medical Decision Making Was pt. sent in by a medical professional or institution (, PA, GUIDE ESCORT, urgent care, hospital, or retirement...) When possible be specific @ -No Did you speak to anyone other than the patient for history (EMS, parent, family, police, friend...)? What history was obtained from this source @ -No Did you review nursing and triage notes (agree or disagree)? Why? @ -I reviewed and agree with nursing and triage notes Were old charts reviewed (outside hosp., previous admission, EMS record, old EKG, old radiological studies, urgent care reports/EKG's, retirement records)? Report findings @ -Did review positive for influenza results Differential Diagnosis (chest pain, altered mental status, abdominal pain women, abdominal pain men, vaginal bleeding, weakness, fever, dyspnea, syncope, headache, dizziness, GI bleed, back pain, seizure, CVA, palpatations, mental health, musculoskeletal)? @ -Differential Fever: Pneumonia, viral URI, endocarditis, myocarditis, pericarditis, otitis, sinusitis, peritonsillar Abscess, retropharyngeal Abscess, epiglottitis, peritonitis, appendicitis, Katarina cystitis, diverticulitis, hepatitis, colitis, UTI, PID, TOA, pyelonephritis, prostatitis, epididymitis, meningitis, encephalitis, pulmonary embolism, CVA, thyroid storm, pancreatitis, adrenal crisis, cavernous sinus thrombosis, this is not meant to be an all-inclusive list. EKG interpreted by me (3pts min.). @ - X-rays interpreted by me (1pt min.). @ -None done CT interpreted by me (1pt min.). @ -None done U/S interpreted by me (1pt. min.). @ -None done What testing was considered but not performed or refused? (CT, X-rays, U/S, labs)? Why? @ -Consider testing for influenza however patient feels he has us and does not want testing. What meds were considered but not given or refused? Why? @ -None Did you discuss the management of the patient with other professionals (professionals i.e. , PA, GUIDE ESCORT, lab, RT, psych nurse, social worker psychiatric, jawbone puller, teacher, police booking officer, pillowcase sewer)? Give summary @ -No Was smoking cessation discussed for >3mins.? @ -No Was critical care preformed (if so, how long)? @ -No Were there social determinants of health that impacted care today? How? (Homelessness, low income, unemployed, alcoholism, drug addiction, transportation, low edu. Level, literacy, decrease access to med. care, senior care, rehab)? @ -No Was there de-escalation of care discussed even if they declined (Discuss DNR or withdrawal of care, Hospice)? DNR status @ -No What co-morbidities impacted this encounter? (DM, HTN, Smoking, COPD, CAD, Cancer, CVA, ARF, Chemo, Hep., AIDS, mental health diagnosis, sleep apnea, morbid obesity)? @ -None Was patient admitted / discharged? Hospital course, mention meds given and route, prescriptions, significant lab abnormalities, going to OR and other pertinent info. @ -Patient is receptive to receiving Tylenol at this point and is advised this in the future. Patient is updated on plan and need for follow-up. Patient does have interest in receiving Tamiflu and this will be sent to pharmacy. Undiagnosed new problem with uncertain prognosis? @ -No Drug Therapy requiring intensive monitoring for toxicity (Heparin, Nitro, Insulin, Cardizem)? @ -No Were any procedures done? @ -No Diagnosis/symptom? @ -Influenza Acute, or Chronic, or Acute on Chronic? @ -Acute Uncomplicated (without systemic symptoms) or Complicated (systemic symptoms)? @ -default Side effects of treatment? @ -No Exacerbation, Progression, or Severe Exacerbation? @ -No Poses a threat to life or bodily function? How? (Chest pain, [place], [place], pneumonia, PE, COPD, DKA, ARF, appy, cholecystitis, CVA, Diverticulitis, Homicidal, Suicidal, threat to staff... and all critical care pts) @ -No Disposition Clinical Impression: Influenza Disposition: HOME SELF-CARE Condition: Stable Instructions (If sedation given, give patient instructions): Influenza (ED) Additional Instructions: Please do follow-up with your primary care physician in the next day or 2 for recheck. [id number] Tylenol or Motrin as needed for fevers. Prescription has been sent to pharmacy. Return for difficulty breathing, uncontrolled vomiting, uncontrolled fevers, worsening symptoms or other concerns. Prescriptions: Oseltamivir Phosphate 75 mg PO BID #10 capsule Is patient prescribed a controlled substance at d/c from ED?: No Referrals: Luis Fernando Delgado DO [Primary Care Provider] - 1-2 days Time of Disposition: 10:44
== END 2023-05-05 10:55 | disposition home or self-care (01) ==
LOC: EC 10:16
DX: J11.1 Influenza due to unidentified influenza virus with other respiratory manifestations (principal); E11.9 Type 2 diabetes mellitus without complications; Z79.4 Long term (current) use of insulin
CPT/HCPCS: 99284

== ENCOUNTER 2023-05-09 15:43 | Inpatient (IN) | payer OTHER ==
--- NOTE | 2023-05-09 15:55 | ED ---
General Adult HPI - General Source: patient, family, RN notes reviewed Mode of arrival: wheelchair Limitations: no limitations <Jared Wakefield - Last Filed: 05/09/23 15:54> <Dimas Michael - Last Filed: 05/09/23 18:42> - General Stated complaint: FLU SYMPTOMS Time Seen by Provider: 05/09/23 15:54 - History of Present Illness Initial comments: 37-year-old male presents emergency Department chief complaint of hyperglycemia. Patient states she he has associated nausea vomiting is concerned about possible DKA. Patient has a known diabetic. (Jared Wakefield) 37-year-old male with type 1 diabetes and recent diagnosis of influenza a presents in extremis. Patient is tachycardic, tachypneic, Kussmaul respiration. Initial blood sugars 500. There is high concern for DKA. (Dimas Michael) - Related Data Home Medications Medication Instructions Recorded Confirmed Insulin Glargine/Lixisenatide 50 units SQ HS 06/13/20 06/13/20 [Soliqua 100 Unit-33 Mcg/ml Pen] Insulin Lispro [humaLOG Kwikpen] 25 unit SQ AC-TID 06/13/20 06/13/20 Insulin Lispro [humaLOG Kwikpen] See Protocol SQ AC-TID 06/13/20 06/13/20 Previous Rx's Medication Instructions Recorded Oseltamivir Phosphate 75 mg PO BID #10 capsule 05/05/23 Allergies Allergy/AdvReac Type Severity Reaction Status Date / Time No Known Allergies Allergy Verified 05/05/23 10:24 Review of Systems ROS Other: All systems not noted in ROS Statement are negative. <Jared Wakefield - Last Filed: 05/09/23 15:54> ROS Other: All systems not noted in ROS Statement are negative. <Dimas Michael - Last Filed: 05/09/23 18:42> ROS Statement: Those systems with pertinent positive or pertinent negative responses have been documented in the HPI. Past Medical History Past Medical History: Diabetes Mellitus Additional Past Medical History / Comment(s): polyps, olitis ibs History of Any Multi-Drug Resistant Organisms: None Reported Additional Past Surgical History / Comment(s): undescended testicle Past Psychological History: No Psychological Hx Reported Smoking Status: Never smoker Past Alcohol Use History: Occasional Past Drug Use History: None Reported <Jared Wakefield - Last Filed: 05/09/23 15:54> General Exam Limitations: no limitations <Jared Wakefield - Last Filed: 05/09/23 15:54> General appearance: lethargic, in distress Head exam: Present: atraumatic, normocephalic Eye exam: Present: normal appearance, PERRL ENT exam: Present: mucous membranes dry Neck exam: Present: normal inspection. Absent: tenderness, meningismus Respiratory exam: Present: respiratory distress (Kussmaul's) Cardiovascular Exam: Present: normal rhythm, tachycardia GI/Abdominal exam: Present: soft. Absent: distended, tenderness Extremities exam: Present: normal inspection, normal capillary refill Neurological exam: Present: alert. Absent: motor sensory deficit Skin exam: Present: warm, dry <Dimas Michael - Last Filed: 05/09/23 18:42> - General Exam Comments Initial Comments: Visual Physical Exam Vital signs reviewed General: Well-appearing, nontoxic, no acute distress. Head: Normocephalic, atraumatic Eyes: PERRLA, EOMI ENT: Airway patent Chest: Nonlabored breathing Skin: No visual rash, normal skin tone Neuro: Alert and oriented 3 Musculoskeletal: No gross abnormalities (Jared Wakefield) Course Vital Signs 05/09/23 15:49 Temperature 97 F L Pulse Rate 120 H Respiratory 50 H Rate Blood Pressure 139/84 O2 Sat by Pulse 97 Oximetry Medical Decision Making <Jared Wakefield - Last Filed: 05/09/23 15:54> - Lab Data Result diagrams: 05/09/23 16:42 05/09/23 16:42 <Dimas Michael - Last Filed: 05/09/23 18:42> - Medical Decision Making I completed the quick note portion of this chart signed Jared Wakefield PA-C (Jared Wakefield) Was pt. sent in by a medical professional or institution (SUZI Sorto, METALIZING MACHINE OPERATOR, urgent care, hospital, or care home...) When possible be specific @ -No Did you speak to anyone other than the patient for history (EMS, parent, family, police, friend...)? What history was obtained from this source @ -No Did you review nursing and triage notes (agree or disagree)? Why? @ -I reviewed and agree with nursing and triage notes Were old charts reviewed (outside hosp., previous admission, EMS record, old EKG, old radiological studies, urgent care reports/EKG's, care home records)? Report findings @ -No old charts were reviewed Differential Diagnosis (chest pain, altered mental status, abdominal pain women, abdominal pain men, vaginal bleeding, weakness, fever, dyspnea, syncope, headache, dizziness, GI bleed, back pain, seizure, CVA, palpatations, mental health, musculoskeletal)? @ Differential Dyspnea: Coronary syndrome, arrhythmia, tamponade, asthma, COPD, pulmonary embolism, pneumonia, pneumothorax, pulmonary effusion, anaphylaxis, diabetic ketoacidosis, flailed chest, pulmonary contusion, diaphragmatic rupture, anemia, neuromuscular, this is not meant to be an all-inclusive list. EKG interpreted by me (3pts min.). @ -[Sinus tachycardia rate of 112, NJ interval 137, QRS duration 103, QTC [address] segment elevation. X-rays interpreted by me (1pt min.). @ -None done CT interpreted by me (1pt min.). @ -None done U/S interpreted by me (1pt. min.). @ -None done What testing was considered but not performed or refused? (CT, X-rays, U/S, labs)? Why? @ -None What meds were considered but not given or refused? Why? @ -None Did you discuss the management of the patient with other professionals (professionals i.e. , PA, METALIZING MACHINE OPERATOR, lab, RT, psych nurse, social work administrator, grove superintendent, teacher, county records management officer, employment case manager)? Give summary @ -[facility] hospitalists and Dr. Kowalski covering for the ICU Was smoking cessation discussed for >3mins.? @ -No Was critical care preformed (if so, how long)? @ -[YES 35 MIN Were there social determinants of health that impacted care today? How? (Homelessness, low income, unemployed, alcoholism, drug addiction, transportation, low edu. Level, literacy, decrease access to med. care, nursing home, r ehab)? @ -No Was there de-escalation of care discussed even if they declined (Discuss DNR or withdrawal of care, Hospice)? DNR status @ -No What co-morbidities impacted this encounter? (DM, HTN, Smoking, COPD, CAD, Cancer, CVA, ARF, Chemo, Hep., AIDS, mental health diagnosis, sleep apnea, morbid obesity)? @ -None Was patient admitted / discharged? Hospital course, mention meds given and route, prescriptions, significant lab abnormalities, going to OR and other pertinent info. @ -37-year-old male presenting in extremis, tachycardic, tachypneic or patient is in profound DKA with a pH is 6.9. He has a pseudohyponatremia 129 and a blood sugar of 584. He has a concurrent lactic acid of 4.3. Patient started on normal saline and insulin according to protocol for DKA. He'll be admitted to the ICU. Undiagnosed new problem with uncertain prognosis? @ -No Drug Therapy requiring intensive monitoring for toxicity (Heparin, Nitro, Insulin, Cardizem)? @ -No Were any procedures done? @ -No Diagnosis/symptom? @ DKA Acute, or Chronic, or Acute on Chronic? @ -[Acute Uncomplicated (without systemic symptoms) or Complicated (systemic symptoms)? @ -[Complicated Side effects of treatment? @ -No Exacerbation, Progression, or Severe Exacerbation? @ -No Poses a threat to life or bodily function? How? (Chest pain, [place], [place], pneumonia, PE, COPD, DKA, ARF, appy, cholecystitis, CVA, Diverticulitis, Homicidal, Suicidal, threat to staff... and all critical care pts) @ -Yes, DKA (Dimas Micheal) - Lab Data Lab Results 05/09/23 05/09/23 05/09/23 Range/Units 15:51 15:59 16:42 WBC 17.2 H (3.8-10.6) k/uL RBC 6.27 H (4.30-5.90) m/uL Hgb 17.3 (13.0-17.5) gm/dL Hct 55.1 H (39.0-53.0) % MCV 87.9 (80.0-100.0) fL MCH 27.6 (25.0-35.0) pg MCHC 31.4 (31.0-37.0) g/dL RDW 13.9 (11.5-15.5) % Plt Count 297 (150-450) k/uL MPV 9.6 Neutrophils % 89 % Lymphocytes % 6 % Monocytes % 4 % Eosinophils % 0 % Basophils % 0 % Neutrophils # 15.2 H (1.3-7.7) k/uL Lymphocytes # 1.0 (1.0-4.8) k/uL Monocytes # 0.7 (0-1.0) k/uL Eosinophils # 0.0 (0-0.7) k/uL Basophils # 0.1 (0-0.2) k/uL Manual Slide Review Performed Hypochromasia Moderate Poikilocytosis (manual Present VBG pH (7.31-7.41) VBG pCO2 (37-51) mmHg VBG HCO3 (24-28) mmol/L Sodium (137-145) mmol/L Potassium (3.5-5.1) mmol/L Chloride (98-107) mmol/L Carbon Dioxide (22-30) mmol/L Anion Gap mmol/L BUN (9-20) mg/dL Creatinine (0.66-1.25) mg/dL Est GFR (CKD-EPI)AfAm (>60 ml/min/1.73 sqM) Est GFR (CKD-EPI)NonAf (>60 ml/min/1.73 sqM) Glucose (74-99) mg/dL POC Glucose (mg/dL) 499 H (70-110) mg/dL POC Glu School Based Therapist ID Thierno Brown Plasma Lactic Acid Collin (0.7-2.0) mmol/L Calcium (8.4-10.2) mg/dL Magnesium (1.6-2.3) mg/dL Total Bilirubin (0.2-1.3) mg/dL AST (17-59) U/L ALT (4-49) U/L Alkaline Phosphatase (38-126) U/L Total Protein (6.3-8.2) g/dL Albumin (3.5-5.0) g/dL Lipase (23-300) U/L Urine Color Urine Appearance (Clear) Urine pH (5.0-8.0) Ur Specific [place] (1.001-1.035) Urine Protein (Negative) Urine Glucose (UA) (Negative) Urine Ketones (Negative) Urine Blood (Negative) Urine Nitrite (Negative) Urine Bilirubin (Negative) Urine Urobilinogen (<2.0) mg/dL Ur Leukocyte Esterase (Negative) Urine RBC (0-5) /hpf Urine WBC (0-5) /hpf Ur Squamous Epith Cells (0-4) /hpf Urine Mucus (None) /hpf Acetone, Qual (Negative) Influenza Type A (PCR) Detected A (Not Detectd) Influenza Type B (PCR) Not Detected (Not Detectd) RSV (PCR) Not Detected (Not Detectd) SARS-CoV-2 (PCR) Not Detected (Not Detectd) 05/09/23 05/09/23 05/09/23 Range/Units 16:42 16:42 16:42 WBC (3.8-10.6) k/uL RBC (4.30-5.90) m/uL Hgb (13.0-17.5) gm/dL Hct (39.0-53.0) % MCV (80.0-100.0) fL MCH (25.0-35.0) pg MCHC (31.0-37.0) g/dL RDW (11.5-15.5) % Plt Count (150-450) k/uL MPV Neutrophils % % Lymphocytes % % Monocytes % % Eosinophils % % Basophils % % Neutrophils # (1.3-7.7) k/uL Lymphocytes # (1.0-4.8) k/uL Monocytes # (0-1.0) k/uL Eosinophils # (0-0.7) k/uL Basophils # (0-0.2) k/uL Manual Slide Review Hypochromasia Poikilocytosis (manual VBG pH (7.31-7.41) VBG pCO2 (37-51) mmHg VBG HCO3 (24-28) mmol/L Sodium 129 L (137-145) mmol/L Potassium 6.2 H* (3.5-5.1) mmol/L Chloride 92 L (98-107) mmol/L Carbon Dioxide <5 L* (22-30) mmol/L Anion Gap mmol/L BUN 37 H (9-20) mg/dL Creatinine 2.09 H (0.66-1.25) mg/dL Est GFR (CKD-EPI)AfAm 45 (>60 ml/min/1.73 sqM) Est GFR (CKD-EPI)NonAf 39 (>60 ml/min/1.73 sqM) Glucose 584 H* (74-99) mg/dL POC Glucose (mg/dL) (70-110) mg/dL POC Glu School Based Therapist ID Plasma Lactic Acid Collin 4.3 H* (0.7-2.0) mmol/L Calcium 10.0 (8.4-10.2) mg/dL Magnesium 2.5 H (1.6-2.3) mg/dL Total Bilirubin 0.8 (0.2-1.3) mg/dL AST 19 (17-59) U/L ALT 19 (4-49) U/L Alkaline Phosphatase 104 (38-126) U/L Total Protein 7.5 (6.3-8.2) g/dL Albumin 4.5 (3.5-5.0) g/dL Lipase 139 (23-300) U/L Urine Color Colorless Urine Appearance Clear (Clear) Urine pH 5.5 (5.0-8.0) Ur Specific [place] 1.018 (1.001-1.035) Urine Protein 1+ H (Negative) Urine Glucose (UA) 4+ H (Negative) Urine Ketones 4+ H (Negative) Urine Blood Small H (Negative) Urine Nitrite Negative (Negative) Urine Bilirubin Negative (Negative) Urine Urobilinogen <2.0 (<2.0) mg/dL Ur Leukocyte Esterase Negative (Negative) Urine RBC 1 (0-5) /hpf Urine WBC 2 (0-5) /hpf Ur Squamous Epith Cells <1 (0-4) /hpf Urine Mucus Rare H (None) /hpf Acetone, Qual Positive (Negative) Influenza Type A (PCR) (Not Detectd) Influenza Type B (PCR) (Not Detectd) RSV (PCR) (Not Detectd) SARS-CoV-2 (PCR) (Not Detectd) 05/09/23 Range/Units 16:42 WBC (3.8-10.6) k/uL RBC (4.30-5.90) m/uL Hgb (13.0-17.5) gm/dL Hct (39.0-53.0) % MCV (80.0-100.0) fL MCH (25.0-35.0) pg MCHC (31.0-37.0) g/dL RDW (11.5-15.5) % Plt Count (150-450) k/uL MPV Neutrophils % % Lymphocytes % % Monocytes % % Eosinophils % % Basophils % % Neutrophils # (1.3-7.7) k/uL Lymphocytes # (1.0-4.8) k/uL Monocytes # (0-1.0) k/uL Eosinophils # (0-0.7) k/uL Basophils # (0-0.2) k/uL Manual Slide Review Hypochromasia Poikilocytosis (manual VBG pH 6.89 L* (7.31-7.41) VBG pCO2 23 L (37-51) mmHg VBG HCO3 5 L* (24-28) mmol/L Sodium (137-145) mmol/L Potassium (3.5-5.1) mmol/L Chloride (98-107) mmol/L Carbon Dioxide (22-30) mmol/L Anion Gap mmol/L BUN (9-20) mg/dL Creatinine (0.66-1.25) mg/dL Est GFR (CKD-EPI)AfAm (>60 ml/min/1.73 sqM) Est GFR (CKD-EPI)NonAf (>60 ml/min/1.73 sqM) Glucose (74-99) mg/dL POC Glucose (mg/dL) (70-110) mg/dL POC Glu School Based Therapist ID Plasma Lactic Acid Collin (0.7-2.0) mmol/L Calcium (8.4-10.2) mg/dL Magnesium (1.6-2.3) mg/dL Total Bilirubin (0.2-1.3) mg/dL AST (17-59) U/L ALT (4-49) U/L Alkaline Phosphatase (38-126) U/L Total Protein (6.3-8.2) g/dL Albumin (3.5-5.0) g/dL Lipase (23-300) U/L Urine Color Urine Appearance (Clear) Urine pH (5.0-8.0) Ur Specific [place] (1.001-1.035) Urine Protein (Negative) Urine Glucose (UA) (Negative) Urine Ketones (Negative) Urine Blood (Negative) Urine Nitrite (Negative) Urine Bilirubin (Negative) Urine Urobilinogen (<2.0) mg/dL Ur Leukocyte Esterase (Negative) Urine RBC (0-5) /hpf Urine WBC (0-5) /hpf Ur Squamous Epith Cells (0-4) /hpf Urine Mucus (None) /hpf Acetone, Qual (Negative) Influenza Type A (PCR) (Not Detectd) Influenza Type B (PCR) (Not Detectd) RSV (PCR) (Not Detectd) SARS-CoV-2 (PCR) (Not Detectd) Critical Care Time Critical Care Time: Yes Total Critical Care Time: 35 <Dimas Michael - Last Filed: 05/09/23 18:42> Disposition <Jared Wakefield - Last Filed: 05/09/23 15:54> Is patient prescribed a controlled substance at d/c from ED?: No Time of Disposition: 18:07 <Dimas Michael - Last Filed: 05/09/23 18:42> Clinical Impression: DKA (diabetic ketoacidosis) Disposition: ADMITTED IP TO THIS HOSP Condition: Serious
[2023-05-09 15:56] LABS: Glucose,Whole Blood 499 mg/dL (70-110)
[2023-05-09 17:00] LABS: Basophils # (A) 0.1 k/uL (0-0.2); Basophils % (A) 0 %; Eosinophils % (A) 0 %; HGB 17.3 gm/dL (13.0-17.5); Hypochromasia Moderate; Lymphocytes % (A) 6 %; MCH 27.6 pg (25.0-35.0); MCHC 31.4 g/dL (31.0-37.0); MCV 87.9 fL (80.0-100.0); Mean Platelet Volume 9.6; Monocytes # (A) 0.7 k/uL (0-1.0); Monocytes % (A) 4 %; Neutrophils # (A) 15.2 k/uL (1.3-7.7); Neutrophils % (A) 89 %; Platelet Count 297 k/uL (150-450); RBC 6.27 m/uL (4.30-5.90); RDW 13.9 % (11.5-15.5); WBC 17.2 k/uL (3.8-10.6)
[2023-05-09] MEDS: SODIUM CHLORIDE 0.9% 1,000 ML IV ONE ×2 (17:01→17:02)
[2023-05-09 17:17] LABS: Appearance,Urine Clear (Clear); Bilirubin,Urine Negative (Negative); Blood,Urine Small (Negative); Color,Urine Colorless; Glucose,Urine (UA) 4+ (Negative); Leukocyte Esterase,Urine Negative (Negative); Mucus,Urine Rare /hpf; Nitrite,Urine Negative (Negative); PH, Urine 5.5 (5.0-8.0); Protein,Urine 1+ (Negative); RBC,Urine 1 /hpf (0-5); Specific Gravity,Urine 1.018 (1.001-1.035); Squamous Epithelial Cell,Urine <1 /hpf (0-4); Urobilinogen,Urine <2.0 mg/dL (<2.0); WBC,Urine 2 /hpf (0-5)
[2023-05-09 17:18] LABS: Ketones,Urine 4+ (Negative)
[2023-05-09 17:20] LABS: ALT 19 U/L (4-49); AST 19 U/L (17-59); African American GFR (CKD) 45 (>60 ml/min/1.73 sqM); Albumin 4.5 g/dL (3.5-5.0); Alkaline Phosphatase 104 U/L (38-126); Blood Urea Nitrogen 37 mg/dL (9-20); Chloride 92 mmol/L (98-107); Lipase 139 U/L (23-300); Magnesium 2.5 mg/dL (1.6-2.3); Non-African American GFR(CKD) 39 (>60 ml/min/1.73 sqM); Sodium 129 mmol/L (137-145); Total Bilirubin 0.8 mg/dL (0.2-1.3); Total Protein 7.5 g/dL (6.3-8.2)
[2023-05-09 17:21] LABS: HCT 55.1 % (39.0-53.0)
[2023-05-09 17:29] LABS: Glucose 584 mg/dL (74-99)
[2023-05-09 17:30] LABS: Carbon Dioxide <5 mmol/L (22-30); Potassium 6.2 mmol/L (3.5-5.1)
[2023-05-09 17:42] LABS: VBG PH 6.89 (7.31-7.41)
[2023-05-09 18:02] LABS: Poikilocytosis (M) Present
[2023-05-09] MEDS: INSULIN REGULAR BOLUS (FROM DRIP BAG) IV ONE (18:06)
[2023-05-09] MEDS: INSULIN REGULAR 100 UNIT in SODIUM CHLORIDE 0.9% 100 ML IV SCH (18:07)
[2023-05-09 18:14] LABS: Glucose,Whole Blood 409 mg/dL (70-110)
[2023-05-09] MEDS: SODIUM CHLORIDE 0.9% 1,000 ML IV SCH (18:35)
[2023-05-09 19:51] LABS: Glucose,Whole Blood 285 mg/dL (70-110)
[2023-05-09] MEDS: OSELTAMIVIR 75 MG CAP PO SCH (20:26)
[2023-05-09 20:29] LABS: Glucose,Whole Blood 275 mg/dL (70-110)
[2023-05-09 21:29] LABS: Glucose,Whole Blood 248 mg/dL (70-110)
[2023-05-09 21:39] LABS: African American GFR (CKD) 76 (>60 ml/min/1.73 sqM); Blood Urea Nitrogen 36 mg/dL (9-20); Chloride 102 mmol/L (98-107); Glucose 292 mg/dL (74-99); Non-African American GFR(CKD) 66 (>60 ml/min/1.73 sqM); Potassium 5.3 mmol/L (3.5-5.1); Sodium 131 mmol/L (137-145)
[2023-05-09 21:54] LABS: Glucose,Whole Blood 241 mg/dL (70-110)
[2023-05-09] MEDS: D5-0.45% NACL WITH KCL 20MEQ/L 1,000 ML IV SCH (21:58)
[2023-05-09 22:00] LABS: Carbon Dioxide <5 mmol/L (22-30)
[2023-05-09 22:56] LABS: Glucose,Whole Blood 209 mg/dL (70-110)
[2023-05-10 00:04] LABS: Glucose,Whole Blood 240 mg/dL (70-110)
[2023-05-10 01:04] LABS: Glucose,Whole Blood 222 mg/dL (70-110)
[2023-05-10 01:06] LABS: African American GFR (CKD) >90 (>60 ml/min/1.73 sqM); Anion Gap 19 mmol/L; Blood Urea Nitrogen 36 mg/dL (9-20); Chloride 104 mmol/L (98-107); Glucose 225 mg/dL (74-99); Non-African American GFR(CKD) 81 (>60 ml/min/1.73 sqM); Potassium 4.9 mmol/L (3.5-5.1); Sodium 130 mmol/L (137-145)
[2023-05-10 01:07] LABS: Carbon Dioxide 7 mmol/L (22-30)
--- NOTE | 2023-05-10 01:38 | P.CNPUL ---
History of Present Illness Consult date: 05/10/23 Requesting physician: Dimas Michael Reason for consult: other (Diabetic ketoacidosis) Chief complaint: URI-like symptoms starting 8 days ago; nausea, vomiting, high blood sugars History of present illness: I am seeing this patient in consultation today 05/10/2023 in the intensive care unit for acute diabetic ketoacidosis. Patient is also positive for influenza A. Patient is a 37-year-old white male with past medical history significant for type 1 diabetes mellitus. Patient is reporting URI-like symptoms starting approximately 8 days ago. This included runny nose, sore throat, nasal congestion, dry cough, fever and also mild shortness of breath. His girlfriend tested positive for influenza A earlier in the week. He did come to the ER on May 05, and was felt to have influenza A. Initial RNA test was negative. He was started on Tamiflu that day. Over the last couple days, his appetite has been poor. He's had increased thirst. He has had trouble managing his blood sugars at home. They have been running high despite taking insulin. Yesterday, he started having significant nausea and vomiting. He was unable to keep down fluids. He did come to the emergency room yesterday afternoon, and was found to be in diabetic ketoacidosis. On arrival, blood glucose was 584, serum CO2 less than 5, anion gap unmeasurable, and ketonuria. He started on the DKA protocol. Insulin currently infusing at 12 units per hour. D5 Whalf normal salineKCl 20 mEq infusing at 150 ML's per hour. He was fluid resuscitated with 2 L normal saline bolus in the emergency room. Patient was also found have an acute kidney injury. BMP initially showed a sodium of 129, potassium 6.2, chloride 92, BUN 37, creatinine 2.09, glucose 584. Lactic acid was 4.3 and is down to 1.5. Hyperkalemia has since improved and is down to 4.9. EKG shows sinus tachycardia with a rate of 112 bpm. No hyperacute T waves or QRS widening. CBC on arrival shows a WBC count of 17.2, hemoglobin 17.3, hematocrit 55.1, platelets 297. He is afebrile. He was started on Tamiflu. Patient is currently lying in bed, on room air, in no acute distress. Vital signs are stable. He is still tachycardic with a rate of 114 bpm. Blood pressure is normotensive. He will be monitored in the intensive care unit until his DKA resolves. Review of Systems REVIEW OF SYSTEMS: CONSTITUTIONAL: Denies any recent significant weight loss or weight gain. EYES: Denies change in vision. EARS, NOSE, MOUTH, THROAT: Denies headaches, denies sore throat. CARDIOVASCULAR: Denies chest pain, palpitations or syncopal episodes. RESPIRATORY: See HPI. GASTROINTESTINAL: Admits nausea and vomiting and reduced appetite. Denies abdominal pain or hematemesis. States that he has chronic diarrhea. GENITOURINARY: Denies hematuria, denies infections. MUSKULOSKELETAL: Denies pain, denies swelling. INTEGUMENTARY: Denies rash, denies eczema. NEUROLOGICAL: Denies recent memory loss, no recent seizure activity. PSYCHIATRIC: Denies anxiety, denies depression. HEMATOLOGIC/LYMPHATIC: Denies anemia, denies enlarged lymph node Past Medical History Past Medical History: Diabetes Mellitus Additional Past Medical History / Comment(s): polyps, olitis ibs History of Any Multi-Drug Resistant Organisms: None Reported Additional Past Surgical History / Comment(s): undescended testicle Past Psychological History: No Psychological Hx Reported Smoking Status: Never smoker Past Alcohol Use History: Occasional Past Drug Use History: None Reported Medications and Allergies Home Medications Medication Instructions Recorded Confirmed Type Oseltamivir Phosphate 75 mg PO BID #10 capsule 05/05/23 05/09/23 Rx Insulin Aspart [NovoLOG Flexpen] 40 units SQ TID-W/MEALS 05/09/23 05/09/23 History Insulin Aspart [NovoLOG Flexpen] See Protocol SQ TID-W/MEALS 05/09/23 05/09/23 History Insulin Glargine,Hum.rec.anlog 40 units SQ BID 05/09/23 05/09/23 History [Lantus Solostar Pen] Prochlorperazine [Compazine] 5 mg PO DIRECTED PRN 05/09/23 05/09/23 History Allergies Allergy/AdvReac Type Severity Reaction Status Date / Time No Known Allergies Allergy Verified 05/09/23 19:09 Physical Exam Vitals: Vital Signs Temp Pulse Resp BP Pulse Ox 05/09/23 23:00 114 H 24 147/84 96 05/09/23 22:54 114 H 21 147/84 96 05/09/23 15:49 97 F L 120 H 50 H 139/84 97 Intake and Output 05/09/23 05/09/23 05/10/23 14:59 22:59 06:59 Intake Total 174.476 150 Balance 174.476 150 Intake: Intake, IV Titration 174.476 150 Amount D5-0.45% NaCl with KCl 150 150 20Meq/l 1,000 ml @ 150 mls/hr IV .[id number] ELDA Rx# :[id number] Insulin Regular 100 unit 24.476 In Sodium Chloride 0.9% 100 ml @ 0.1 UNITS/KG/HR 9.85 mls/hr IV .[id number] ELDA Rx#:[id number] Other: Voiding Method External Catheter Weight 97.522 kg GENERAL EXAM: Alert, 37-year-old white male wearing stated age, comfortable in no apparent distress. HEAD: Normocephalic and atraumatic EYES: Normal reaction of pupils, equal size. NOSE: Clear with pink turbinates. THROAT: No erythema or exudates. NECK: No masses, no JVD. CHEST: No chest wall deformity. LUNGS: Equal air entry with no crackles, wheeze, rhonchi or dullness. On room air. No conversational dyspnea or accessory muscle use.. CVS: S1 and S2 normal with no audible murmur, regular rhythm. No extra heart sounds. Tachycardic ABDOMEN: No hepatosplenomegaly, active bowel sounds, no guarding or rigidity. SPINE: No scoliosis or deformity SKIN: No rashes CENTRAL NERVOUS SYSTEM: No focal deficits, tone is normal in all 4 extremities. EXTREMITIES: There is no peripheral edema, clubbing, or cyanosis. Peripheral pulses are intact. Results - Laboratory Findings CBC and BMP: 05/09/23 16:42 05/09/23 20:59 Abnormal lab findings: Abnormal Labs 05/09/23 05/09/23 05/09/23 15:51 15:59 16:42 WBC 17.2 H RBC 6.27 H Hct 55.1 H Neutrophils # 15.2 H VBG pH VBG pCO2 VBG HCO3 Sodium Potassium Chloride Carbon Dioxide BUN Creatinine Glucose POC Glucose (mg/dL) 499 H Plasma Lactic Acid Collin Magnesium Urine Protein Urine Glucose (UA) Urine Ketones Urine Blood Urine Mucus Influenza Type A (PCR) Detected A 05/09/23 05/09/23 05/09/23 16:42 16:42 16:42 WBC RBC Hct Neutrophils # VBG pH VBG pCO2 VBG HCO3 Sodium 129 L Potassium 6.2 H* Chloride 92 L Carbon Dioxide <5 L* BUN 37 H Creatinine 2.09 H Glucose 584 H* POC Glucose (mg/dL) Plasma Lactic Acid Collin 4.3 H* Magnesium 2.5 H Urine Protein 1+ H Urine Glucose (UA) 4+ H Urine Ketones 4+ H Urine Blood Small H Urine Mucus Rare H Influenza Type A (PCR) 05/09/23 05/09/23 05/09/23 16:42 18:12 19:40 WBC RBC Hct Neutrophils # VBG pH 6.89 L* VBG pCO2 23 L VBG HCO3 5 L* Sodium Potassium Chloride Carbon Dioxide BUN Creatinine Glucose POC Glucose (mg/dL) 409 H 285 H Plasma Lactic Acid Collin Magnesium Urine Protein Urine Glucose (UA) Urine Ketones Urine Blood Urine Mucus Influenza Type A (PCR) 05/09/23 05/09/23 05/09/23 20:28 20:59 21:28 WBC RBC Hct Neutrophils # VBG pH VBG pCO2 VBG HCO3 Sodium 131 L Potassium 5.3 H Chloride Carbon Dioxide <5 L* BUN 36 H Creatinine 1.37 H Glucose 292 H POC Glucose (mg/dL) 275 H 248 H Plasma Lactic Acid Collin Magnesium Urine Protein Urine Glucose (UA) Urine Ketones Urine Blood Urine Mucus Influenza Type A (PCR) 05/09/23 05/09/23 05/10/23 21:52 22:55 00:03 WBC RBC Hct Neutrophils # VBG pH VBG pCO2 VBG HCO3 Sodium Potassium Chloride Carbon Dioxide BUN Creatinine Glucose POC Glucose (mg/dL) 241 H 209 H 240 H Plasma Lactic Acid Collin Magnesium Urine Protein Urine Glucose (UA) Urine Ketones Urine Blood Urine Mucus Influenza Type A (PCR) Assessment and Plan Assessment: Acute diabetic ketoacidosis, likely exacerbated by influenza A infection. Acute influenza A infection, was started on Tamiflu outpatient, which has been continued Severe metabolic anion gap acidosis, secondary to above Leukocytosis Acute kidney injury, prerenal related dehydration, improving Hypovolemic hyponatremia Hyperkalemia, improved Type 1 diabetes mellitus. Plan: Patient has been admitted to the intensive care unit for management of his acute diabetic ketoacidosis which is still not resolved. Most recent serum bicarb 7, anion gap 19. Continues on the DKA protocol. Hyperkalemia has improved, and is down to 4.9. LUANNE is improved with fluid resuscitation. Nausea and vomiting has stopped. He is able to tolerate clear liquids. He did test positive for influenza A. He continues on Tamiflu. Obtain chest x-ray. Not in any signific ant respiratory distress. On room air. We will continue to follow this patient in the intensive care unit. I have personally seen and examined the patient, performed the documentation and the assessment and plan as written. Number of minutes spent on the visit:20 Time with Patient: Greater than 30
[2023-05-10 02:01] LABS: Glucose,Whole Blood 194 mg/dL (70-110)
[2023-05-10 03:03] LABS: Glucose,Whole Blood 211 mg/dL (70-110)
[2023-05-10 04:02] LABS: ALT 12 U/L (4-49); AST 15 U/L (17-59); African American GFR (CKD) >90 (>60 ml/min/1.73 sqM); Albumin 3.1 g/dL (3.5-5.0); Alkaline Phosphatase 80 U/L (38-126); Anion Gap 15 mmol/L; Blood Urea Nitrogen 32 mg/dL (9-20); Calcium 8.7 mg/dL (8.4-10.2); Chloride 106 mmol/L (98-107); Glucose 199 mg/dL (74-99); Non-African American GFR(CKD) >90 (>60 ml/min/1.73 sqM); Potassium 4.6 mmol/L (3.5-5.1); Sodium 130 mmol/L (137-145); Total Bilirubin 0.5 mg/dL (0.2-1.3); Total Protein 5.9 g/dL (6.3-8.2)
[2023-05-10 04:05] LABS: Glucose,Whole Blood 174 mg/dL (70-110)
[2023-05-10 04:13] LABS: Carbon Dioxide 9 mmol/L (22-30)
[2023-05-10 05:05] LABS: Glucose,Whole Blood 158 mg/dL (70-110)
[2023-05-10 06:01] LABS: Glucose,Whole Blood 147 mg/dL (70-110)
[2023-05-10 06:55] LABS: Glucose,Whole Blood 148 mg/dL (70-110)
--- NOTE | 2023-05-10 07:33 | XR ---
EXAMINATION TYPE: XR chest 1V portable DATE OF EXAM: 05/10/2023 COMPARISON: 08/11/2019 HISTORY: Chest pain TECHNIQUE: Single frontal view of the chest is obtained. FINDINGS: There is no focal air space opacity, pleural effusion, or pneumothorax seen. The cardiac silhouette size is within normal limits. The osseous structures are intact. IMPRESSION: 1. No acute process.
[2023-05-10 07:50] LABS: ALT 12 U/L (4-49); AST 17 U/L (17-59); African American GFR (CKD) >90 (>60 ml/min/1.73 sqM); Albumin 3.1 g/dL (3.5-5.0); Alkaline Phosphatase 83 U/L (38-126); Anion Gap 12 mmol/L; Blood Urea Nitrogen 26 mg/dL (9-20); Calcium 8.9 mg/dL (8.4-10.2); Carbon Dioxide 10 mmol/L (22-30); Chloride 109 mmol/L (98-107); Glucose 168 mg/dL (74-99); Non-African American GFR(CKD) >90 (>60 ml/min/1.73 sqM); Potassium 4.3 mmol/L (3.5-5.1); Sodium 131 mmol/L (137-145); Total Bilirubin 0.5 mg/dL (0.2-1.3); Total Protein 5.8 g/dL (6.3-8.2)
[2023-05-10 08:07] LABS: Glucose,Whole Blood 170 mg/dL (70-110)
[2023-05-10] MEDS ORDERED: Magnesium Replacement Protocol 1 EACH MISC MISCELLANE PRN (08:28)
[2023-05-10] MEDS ORDERED: Potassium Replacement Protocol 1 EACH MISC MISCELLANE PRN (08:28)
[2023-05-10] MEDS ORDERED: DEXTROSE 50% SYRINGE 50 ML IVP PRN ×2 (08:28)
[2023-05-10] MEDS ORDERED: NALOXONE 0.4 MG/ML 1 ML VIAL IV PRN (08:51)
[2023-05-10] MEDS ORDERED: traMADol 50 MG TAB PO PRN (08:51)
[2023-05-10] MEDS: ONDANSETRON 4 MG/2 ML VIAL IVP PRN (09:01)
[2023-05-10 09:05] LABS: Magnesium 2.1 mg/dL (1.6-2.3); Phosphorus 1.6 mg/dL (2.5-4.5)
[2023-05-10] MEDS: ACETAMINOPHEN TAB 325 MG TAB PO PRN (09:06)
[2023-05-10 09:20] LABS: Glucose,Whole Blood 233 mg/dL (70-110)
[2023-05-10] MEDS: guaiFENesin 600 MG TABLET.ER PO SCH (10:25)
[2023-05-10 10:29] LABS: Glucose,Whole Blood 235 mg/dL (70-110)
[2023-05-10 11:14] LABS: Glucose,Whole Blood 259 mg/dL (70-110)
[2023-05-10 12:16] LABS: Glucose,Whole Blood 265 mg/dL (70-110)
--- NOTE | 2023-05-10 12:31 | P.HPIM ---
History of Present Illness H&P Date: 05/10/23 Chief Complaint: Nausea, vomiting, hyperglycemia * 37-year-old gentleman with past medical history significant for diabetes mellitus type 1, presents to the emergency department with complains of runny nose, nasal congestion, sore throat, fever and shortness of breath. Patient was noted to have symptom onset about one week prior to presentation. Patient had upper respiratory illness. Patient was in our emergency department on 05/05 and was tested positive for influenza. Patient was given Tamiflu. Patient had poor appetite in the following days with increased thirst and trouble managing blood sugars. Patient was noted to have significant nausea and vomiting. Patient presented to the emergency department noted to have diabetic ketoacidosis. Upon arrival blood glucose was noted in the high 500s. Serum carbon dioxide less than 5 and significant ketonuria. Patient was started on DKA protocol. Patient was started on insulin drip after 2 L normal syndrome fluid bolus given. Initial lactate on admission was 4.3 with improved post hydration. Patient was also noted to have high potassium which improved. Patient admitted to ICU for further management REVIEW OF SYSTEMS: Fever, malaise, cough, runny nose CONSTITUTIONAL: Fever, malaise, cough, runny nose HEENT: No recent visual problems or hearing problems. Denied any sore throat. CARDIOVASCULAR: No chest pain, orthopnea, PND, no palpitations, no syncope. PULMONARY: Fever, malaise, cough, runny nose, shortness of breath. GASTROINTESTINAL: No diarrhea, no nausea, no vomiting, no abdominal pain. NEUROLOGICAL: No headaches, no weakness, no numbness. HEMATOLOGICAL: Denies any bleeding or petechiae. GENITOURINARY: Denies any burning micturition, frequency, or urgency. MUSCULOSKELETAL/RHEUMATOLOGICAL: Denies any joint pain, swelling, or any muscle pain. ENDOCRINE: Denies any polyuria or polydipsia. PHYSICAL EXAMINATION: GENERAL: The patient is alert and oriented x3, ill appearance HEENT: Pupils are round and equally reacting to light. EOMI. CARDIOVASCULAR: S1 and S2 present. No murmurs, rubs, or gallops. PULMONARY: Decreased breath sounds bilaterally. Tachycardia noted ABDOMEN: Soft, nontender, nondistended, normoactive bowel sounds. No palpable organomegaly. MUSCULOSKELETAL: No joint swelling or deformity. EXTREMITIES: No cyanosis, clubbing, or pedal edema. NEUROLOGICAL: Gross neurological examination did not reveal any focal deficits. SKIN: No rashes. Past Medical History Past Medical History: Diabetes Mellitus Additional Past Medical History / Comment(s): polyps, olitis ibs History of Any Multi-Drug Resistant Organisms: None Reported Additional Past Surgical History / Comment(s): undescended testicle Past Psychological History: No Psychological Hx Reported Smoking Status: Never smoker Past Alcohol Use History: Occasional Past Drug Use History: None Reported Medications and Allergies Home Medications Medication Instructions Recorded Confirmed Type Oseltamivir Phosphate 75 mg PO BID #10 capsule 05/05/23 05/09/23 Rx Insulin Aspart [NovoLOG Flexpen] 40 units SQ TID-W/MEALS 05/09/23 05/09/23 Hi story Insulin Aspart [NovoLOG Flexpen] See Protocol SQ TID-W/MEALS 05/09/23 05/09/23 History Insulin Glargine,Hum.rec.anlog 40 units SQ BID 05/09/23 05/09/23 History [Lantus Solostar Pen] Prochlorperazine [Compazine] 5 mg PO DIRECTED PRN 05/09/23 05/09/23 History Allergies Allergy/AdvReac Type Severity Reaction Status Date / Time No Known Allergies Allergy Verified 05/09/23 19:09 Physical Exam Vitals: Vital Signs Temp Pulse Resp BP Pulse Ox 05/10/23 08:00 98.9 F 110 H 12 143/81 95 05/10/23 07:00 107 H 27 H 123/76 94 L 05/10/23 06:00 111 H 20 146/81 95 05/10/23 05:00 105 H 18 149/81 95 05/10/23 04:00 98.3 F 105 H 20 134/80 94 L 05/10/23 03:00 108 H 24 134/80 96 05/10/23 02:00 108 H 12 119/77 95 05/10/23 01:00 112 H 26 H 122/82 95 05/10/23 00:00 98.8 F 111 H 28 H 143/89 96 05/09/23 23:23 115 H 29 H 143/89 95 05/09/23 23:00 114 H 24 147/84 96 05/09/23 22:54 114 H 21 147/84 96 05/09/23 15:49 97 F L 120 H 50 H 139/84 97 Intake and Output 05/09/23 05/10/23 05/10/23 22:59 06:59 14:59 Intake Total 095.986 7986.100 390 Output Total 1750 Balance 174.476 -431.900 390 Intake: Intake, IV Titration 015.217 4829.100 150 Amount D5-0.45% NaCl with KCl 150 1200 150 20Meq/l 1,000 ml @ 150 mls/hr IV .[id number] [facility] Rx# :[id number] Insulin Regular 100 unit 24.476 118.100 In Sodium Chloride 0.9% 100 ml @ 0.1 UNITS/KG/HR 9.85 mls/hr IV .[id number] [facility] Rx#:[id number] Oral 240 Output: Urine 1750 Other: Voiding Method External Catheter Bedside Commode Weight 97.522 kg 108.2 kg Results CBC & Chem 7: 05/09/23 16:42 05/10/23 07:16 Labs: Abnormal Lab Results - Last 24 Hours (Table) 05/09/23 05/09/23 05/09/23 Range/Units 15:51 15:59 16:42 WBC 17.2 H (3.8-10.6) k/uL RBC 6.27 H (4.30-5.90) m/uL Hct 55.1 H (39.0-53.0) % Neutrophils # 15.2 H (1.3-7.7) k/uL VBG pH (7.31-7.41) VBG pCO2 (37-51) mmHg VBG HCO3 (24-28) mmol/L Sodium (137-145) mmol/L Potassium (3.5-5.1) mmol/L Chloride (98-107) mmol/L Carbon Dioxide (22-30) mmol/L BUN (9-20) mg/dL Creatinine (0.66-1.25) mg/dL Glucose (74-99) mg/dL POC Glucose (mg/dL) 499 H (70-110) mg/dL Plasma Lactic Acid Collin (0.7-2.0) mmol/L Phosphorus (2.5-4.5) mg/dL Magnesium (1.6-2.3) mg/dL AST (17-59) U/L Total Protein (6.3-8.2) g/dL Albumin (3.5-5.0) g/dL Urine Protein (Negative) Urine Glucose (UA) (Negative) Urine Ketones (Negative) Urine Blood (Negative) Urine Mucus (None) /hpf Influenza Type A (PCR) Detected A (Not Detectd) 05/09/23 05/09/23 05/09/23 Range/Units 16:42 16:42 16:42 WBC (3.8-10.6) k/uL RBC (4.30-5.90) m/uL Hct (39.0-53.0) % Neutrophils # (1.3-7.7) k/uL VBG pH (7.31-7.41) VBG pCO2 (37-51) mmHg VBG HCO3 (24-28) mmol/L Sodium 129 L (137-145) mmol/L Potassium 6.2 H* (3.5-5.1) mmol/L Chloride 92 L (98-107) mmol/L Carbon Dioxide <5 L* (22-30) mmol/L BUN 37 H (9-20) mg/dL Creatinine 2.09 H (0.66-1.25) mg/dL Glucose 584 H* (74-99) mg/dL POC Glucose (mg/dL) (70-110) mg/dL Plasma Lactic Acid Collin 4.3 H* (0.7-2.0) mmol/L Phosphorus (2.5-4.5) mg/dL Magnesium 2.5 H (1.6-2.3) mg/dL AST (17-59) U/L Total Protein (6.3-8.2) g/dL Albumin (3.5-5.0) g/dL Urine Protein 1+ H (Negative) Urine Glucose (UA) 4+ H (Negative) Urine Ketones 4+ H (Negative) Urine Blood Small H (Negative) Urine Mucus Rare H (None) /hpf Influenza Type A (PCR) (Not Detectd) 05/09/23 05/09/23 05/09/23 Range/Units 16:42 18:12 19:40 WBC (3.8-10.6) k/uL RBC (4.30-5.90) m/uL Hct (39.0-53.0) % Neutrophils # (1.3-7.7) k/uL VBG pH 6.89 L* (7.31-7.41) VBG pCO2 23 L (37-51) mmHg VBG HCO3 5 L* (24-28) mmol/L Sodium (137-145) mmol/L Potassium (3.5-5.1) mmol/L Chloride (98-107) mmol/L Carbon Dioxide (22-30) mmol/L BUN (9-20) mg/dL Creatinine (0.66-1.25) mg/dL Glucose (74-99) mg/dL POC Glucose (mg/dL) 409 H 285 H (70-110) mg/dL Plasma Lactic Acid Collin (0.7-2.0) mmol/L Phosphorus (2.5-4.5) mg/dL Magnesium (1.6-2.3) mg/dL AST (17-59) U/L Total Protein (6.3-8.2) g/dL Albumin (3.5-5.0) g/dL Urine Protein (Negative) Urine Glucose (UA) (Negative) Urine Ketones (Negative) Urine Blood (Negative) Urine Mucus (None) /hpf Influenza Type A (PCR) (Not Detectd) 05/09/23 05/09/23 05/09/23 Range/Units 20:28 20:59 21:28 WBC (3.8-10.6) k/uL RBC (4.30-5.90) m/uL Hct (39.0-53.0) % Neutrophils # (1.3-7.7) k/uL VBG pH (7.31-7.41) VBG pCO2 (37-51) mmHg VBG HCO3 (24-28) mmol/L Sodium 131 L (137-145) mmol/L Potassium 5.3 H (3.5-5.1) mmol/L Chloride (98-107) mmol/L Carbon Dioxide <5 L* (22-30) mmol/L BUN 36 H (9-20) mg/dL Creatinine 1.37 H (0.66-1.25) mg/dL Glucose 292 H (74-99) mg/dL POC Glucose (mg/dL) 275 H 248 H (70-110) mg/dL Plasma Lactic Acid Collin (0.7-2.0) mmol/L Phosphorus (2.5-4.5) mg/dL Magnesium (1.6-2.3) mg/dL AST (17-59) U/L Total Protein (6.3-8.2) g/dL Albumin (3.5-5.0) g/dL Urine Protein (Negative) Urine Glucose (UA) (Negative) Urine Ketones (Negative) Urine Blood (Negative) Urine Mucus (None) /hpf Influenza Type A (PCR) (Not Detectd) 05/09/23 05/09/23 05/09/23 Range/Units 21:52 22:55 23:53 WBC (3.8-10.6) k/uL RBC (4.30-5.90) m/uL Hct (39.0-53.0) % Neutrophils # (1.3-7.7) k/uL VBG pH (7.31-7.41) VBG pCO2 (37-51) mmHg VBG HCO3 (24-28) mmol/L Sodium (137-145) mmol/L Potassium (3.5-5.1) mmol/L Chloride (98-107) mmol/L Carbon Dioxide (22-30) mmol/L BUN (9-20) mg/dL Creatinine (0.66-1.25) mg/dL Glucose (74-99) mg/dL POC Glucose (mg/dL) 241 H 209 H (70-110) mg/dL Plasma Lactic Acid Collin (0.7-2.0) mmol/L Phosphorus 1.2 L (2.5-4.5) mg/dL Magnesium (1.6-2.3) mg/dL AST (17-59) U/L Total Protein (6.3-8.2) g/dL Albumin (3.5-5.0) g/dL Urine Protein (Negative) Urine Glucose (UA) (Negative) Urine Ketones (Negative) Urine Blood (Negative) Urine Mucus (None) /hpf Influenza Type A (PCR) (Not Detectd) 05/09/23 05/10/23 05/10/23 Range/Units 23:53 00:03 01:02 WBC (3.8-10.6) k/uL RBC (4.30-5.90) m/uL Hct (39.0-53.0) % Neutrophils # (1.3-7.7) k/uL VBG pH (7.31-7.41) VBG pCO2 (37-51) mmHg VBG HCO3 (24-28) mmol/L Sodium 130 L (137-145) mmol/L Potassium (3.5-5.1) mmol/L Chloride (98-107) mmol/L Carbon Dioxide 7 L* (22-30) mmol/L BUN 36 H (9-20) mg/dL Creatinine (0.66-1.25) mg/dL Glucose 225 H (74-99) mg/dL POC Glucose (mg/dL) 240 H 222 H (70-110) mg/dL Plasma Lactic Acid Collin (0.7-2.0) mmol/L Phosphorus (2.5-4.5) mg/dL Magnesium (1.6-2.3) mg/dL AST (17-59) U/L Total Protein (6.3-8.2) g/dL Albumin (3.5-5.0) g/dL Urine Protein (Negative) Urine Glucose (UA) (Negative) Urine Ketones (Negative) Urine Blood (Negative) Urine Mucus (None) /hpf Influenza Type A (PCR) (Not Detectd) 05/10/23 05/10/23 05/10/23 Range/Units 01:59 02:48 03:01 WBC (3.8-10.6) k/uL RBC (4.30-5.90) m/uL Hct (39.0-53.0) % Neutrophils # (1.3-7.7) k/uL VBG pH (7.31-7.41) VBG pCO2 (37-51) mmHg VBG HCO3 (24-28) mmol/L Sodium 130 L (137-145) mmol/L Potassium (3.5-5.1) mmol/L Chloride (98-107) mmol/L Carbon Dioxide 9 L* (22-30) mmol/L BUN 32 H (9-20) mg/dL Creatinine (0.66-1.25) mg/dL Glucose 199 H (74-99) mg/dL POC Glucose (mg/dL) 194 H 211 H (70-110) mg/dL Plasma Lactic Acid Collin (0.7-2.0) mmol/L Phosphorus (2.5-4.5) mg/dL Magnesium (1.6-2.3) mg/dL AST 15 L (17-59) U/L Total Protein 5.9 L (6.3-8.2) g/dL Albumin 3.1 L (3.5-5.0) g/dL Urine Protein (Negative) Urine Glucose (UA) (Negative) Urine Ketones (Negative) Urine Blood (Negative) Urine Mucus (None) /hpf Influenza Type A (PCR) (Not Detectd) 05/10/23 05/10/23 05/10/23 Range/Units 04:03 05:03 06:00 WBC (3.8-10.6) k/uL RBC (4.30-5.90) m/uL Hct (39.0-53.0) % Neutrophils # (1.3-7.7) k/uL VBG pH (7.31-7.41) VBG pCO2 (37-51) mmHg VBG HCO3 (24-28) mmol/L Sodium (137-145) mmol/L Potassium (3.5-5.1) mmol/L Chloride (98-107) mmol/L Carbon Dioxide (22-30) mmol/L BUN (9-20) mg/dL Creatinine (0.66-1.25) mg/dL Glucose (74-99) mg/dL POC Glucose (mg/dL) 174 H 158 H 147 H (70-110) mg/dL Plasma Lactic Acid Collin (0.7-2.0) mmol/L Phosphorus (2.5-4.5) mg/dL Magnesium (1.6-2.3) mg/dL AST (17-59) U/L Total Protein (6.3-8.2) g/dL Albumin (3.5-5.0) g/dL Urine Protein (Negative) Urine Glucose (UA) (Negative) Urine Ketones (Negative) Urine Blood (Negative) Urine Mucus (None) /hpf Influenza Type A (PCR) (Not Detectd) 05/10/23 05/10/23 05/10/23 Range/Units 06:54 07:16 08:06 WBC (3.8-10.6) k/uL RBC (4.30-5.90) m/uL Hct (39.0-53.0) % Neutrophils # (1.3-7.7) k/uL VBG pH (7.31-7.41) VBG pCO2 (37-51) mmHg VBG HCO3 (24-28) mmol/L Sodium 131 L (137-145) mmol/L Potassium (3.5-5.1) mmol/L Chloride 109 H (98-107) mmol/L Carbon Dioxide 10 L (22-30) mmol/L BUN 26 H (9-20) mg/dL Creatinine (0.66-1.25) mg/dL Glucose 168 H (74-99) mg/dL POC Glucose (mg/dL) 148 H 170 H (70-110) mg/dL Plasma Lactic Acid Collin (0.7-2.0) mmol/L Phosphorus (2.5-4.5) mg/dL Magnesium (1.6-2.3) mg/dL AST (17-59) U/L Total Protein 5.8 L (6.3-8.2) g/dL Albumin 3.1 L (3.5-5.0) g/dL Urine Protein (Negative) Urine Glucose (UA) (Negative) Urine Ketones (Negative) Urine Blood (Negative) Urine Mucus (None) /hpf Influenza Type A (PCR) (Not Detectd) Thrombosis Risk Factor Assmnt - Choose All That Apply Each Factor Represents 1 point: Obesity (BMI >25) Other Risk Factors: No Thrombosis Risk Factor Assessment Total Risk Factor Score: 1 Thrombosis Risk Factor Assessment Level: Low Risk Assessment and Plan Assessment: Assessment and plan * Diabetic ketoacidosis * Acute influenza A infection * Severe pain and Metabolic acidosis * Acute kidney injury secondary to prerenal intravascular volume depletion * Hyperkalemia * Sepsis secondary to viral etiology * Acute hyponatremia * In regards to DKA, patient started on protocol, continue electrolyte panel, appropriately resuscitated with fluid, continue IV insulin, monitor potassium and serum bicarbonate levels, serial VBG ordered * In regards to influenza infection continue Tamiflu, continue breathing treatments as needed, Mucinex ordered, started azithromycin * In regards to renal failure continue to follow up basal metabolic panel * In regards to hyperkalemia, patient on insulin drip, follow potassium levels ordered * In regards to sepsis secondary to viral etiology, continue to monitor lactate levels which is elevated secondary to diabetic ketoacidosis * In regards to hyponatremia continue to monitor serum sodium levels * CODE STATUS is full code
[2023-05-10 13:00] LABS: VBG PH 7.34 (7.31-7.41)
[2023-05-10 13:11] LABS: African American GFR (CKD) >90 (>60 ml/min/1.73 sqM); Anion Gap 15 mmol/L; Blood Urea Nitrogen 23 mg/dL (9-20); Chloride 106 mmol/L (98-107); Glucose 259 mg/dL (74-99); Non-African American GFR(CKD) >90 (>60 ml/min/1.73 sqM); Phosphorus 1.3 mg/dL (2.5-4.5); Potassium 4.4 mmol/L (3.5-5.1); Sodium 129 mmol/L (137-145)
[2023-05-10] MEDS: AZITHROMYCIN 500 MG in SODIUM CHLORIDE 0.9% 250 ML IVPB SCH (13:19)
[2023-05-10 13:28] LABS: Glucose,Whole Blood 268 mg/dL (70-110)
[2023-05-10 13:50] LABS: Carbon Dioxide 8 mmol/L (22-30)
[2023-05-10 14:10] LABS: Glucose,Whole Blood 230 mg/dL (70-110)
[2023-05-10] MEDS ORDERED: Phosphorus Replacement Protoco 1 EACH MISC MISCELLANE PRN (14:20)
[2023-05-10 15:09] LABS: Glucose,Whole Blood 228 mg/dL (70-110)
[2023-05-10] MEDS: SODIUM PHOSPHATE 30 MMOL in DEXTROSE 5% IN WATER 250 ML IVPB ONE (16:05)
[2023-05-10 16:09] LABS: Glucose,Whole Blood 223 mg/dL (70-110)
[2023-05-10 17:05] LABS: Glucose,Whole Blood 255 mg/dL (70-110)
[2023-05-10 17:09] LABS: African American GFR (CKD) >90 (>60 ml/min/1.73 sqM); Anion Gap 13 mmol/L; Blood Urea Nitrogen 20 mg/dL (9-20); Carbon Dioxide 10 mmol/L (22-30); Chloride 108 mmol/L (98-107); Glucose 249 mg/dL (74-99); Non-African American GFR(CKD) >90 (>60 ml/min/1.73 sqM); Phosphorus 1.2 mg/dL (2.5-4.5); Sodium 131 mmol/L (137-145)
[2023-05-10 18:25] LABS: Glucose,Whole Blood 244 mg/dL (70-110)
[2023-05-10 19:12] LABS: Glucose,Whole Blood 243 mg/dL (70-110)
[2023-05-10 20:05] LABS: Glucose,Whole Blood 288 mg/dL (70-110)
[2023-05-10 20:44] LABS: African American GFR (CKD) >90 (>60 ml/min/1.73 sqM); Anion Gap 12 mmol/L; Blood Urea Nitrogen 17 mg/dL (9-20); Carbon Dioxide 12 mmol/L (22-30); Chloride 107 mmol/L (98-107); Glucose 257 mg/dL (74-99); Non-African American GFR(CKD) >90 (>60 ml/min/1.73 sqM); Phosphorus 2.1 mg/dL (2.5-4.5); Potassium 3.6 mmol/L (3.5-5.1); Sodium 131 mmol/L (137-145)
[2023-05-10 21:03] LABS: Glucose,Whole Blood 236 mg/dL (70-110)
[2023-05-10 21:57] LABS: Glucose,Whole Blood 262 mg/dL (70-110)
[2023-05-10 22:58] LABS: Glucose,Whole Blood 221 mg/dL (70-110)
[2023-05-11 00:06] LABS: Glucose,Whole Blood 191 mg/dL (70-110)
[2023-05-11 01:04] LABS: Glucose,Whole Blood 194 mg/dL (70-110)
[2023-05-11 01:06] LABS: African American GFR (CKD) >90 (>60 ml/min/1.73 sqM); Anion Gap 9 mmol/L; Blood Urea Nitrogen 14 mg/dL (9-20); Carbon Dioxide 14 mmol/L (22-30); Chloride 109 mmol/L (98-107); Glucose 220 mg/dL (74-99); Non-African American GFR(CKD) >90 (>60 ml/min/1.73 sqM); Phosphorus 1.3 mg/dL (2.5-4.5); Potassium 3.4 mmol/L (3.5-5.1); Sodium 132 mmol/L (137-145)
[2023-05-11] MEDS ORDERED: Phosphorus Replacement Protoco 1 EACH MISC MISCELLANE PRN (01:16)
[2023-05-11] MEDS ORDERED: Potassium Replacement Protocol 1 EACH MISC MISCELLANE PRN (01:16)
[2023-05-11 02:06] LABS: Glucose,Whole Blood 179 mg/dL (70-110)
[2023-05-11] MEDS: SODIUM PHOSPHATE 30 MMOL in DEXTROSE 5% IN WATER 250 ML IVPB ONE ×2 (02:11→15:50)
[2023-05-11] MEDS: POTASSIUM CHLORIDE ER 20 MEQ TAB.ER PO SCH ×3 (02:21→06:49)
[2023-05-11 03:07] LABS: Glucose,Whole Blood 185 mg/dL (70-110)
[2023-05-11 04:04] LABS: Glucose,Whole Blood 220 mg/dL (70-110)
[2023-05-11 05:06] LABS: Glucose,Whole Blood 192 mg/dL (70-110)
[2023-05-11 05:44] LABS: Basophils % (A) 0 %; Eosinophils % (A) 0 %; HCT 36.2 % (39.0-53.0); Lymphocytes % (A) 14 %; MCH 27.5 pg (25.0-35.0); MCHC 34.7 g/dL (31.0-37.0); Mean Platelet Volume 8.7; Monocytes # (A) 0.5 k/uL (0-1.0); Monocytes % (A) 7 %; Neutrophils # (A) 5.8 k/uL (1.3-7.7); Neutrophils % (A) 77 %; RBC 4.57 m/uL (4.30-5.90); RDW 14.3 % (11.5-15.5); WBC 7.5 k/uL (3.8-10.6)
[2023-05-11 05:58] LABS: African American GFR (CKD) >90 (>60 ml/min/1.73 sqM); Anion Gap 10 mmol/L; Blood Urea Nitrogen 12 mg/dL (9-20); Carbon Dioxide 13 mmol/L (22-30); Chloride 109 mmol/L (98-107); Glucose 206 mg/dL (74-99); Non-African American GFR(CKD) >90 (>60 ml/min/1.73 sqM); Potassium 3.3 mmol/L (3.5-5.1); Sodium 132 mmol/L (137-145)
[2023-05-11 06:00] LABS: HGB 12.6 gm/dL (13.0-17.5)
[2023-05-11 06:01] LABS: MCV 79.2 fL (80.0-100.0); Platelet Count 147 k/uL (150-450)
[2023-05-11 06:05] LABS: Glucose,Whole Blood 199 mg/dL (70-110)
[2023-05-11 06:10] LABS: ALT 13 U/L (4-49); AST 19 U/L (17-59); Albumin 2.6 g/dL (3.5-5.0); Alkaline Phosphatase 64 U/L (38-126); Total Bilirubin 0.5 mg/dL (0.2-1.3)
[2023-05-11] MEDS: PANTOPRAZOLE 40 MG TABLET PO SCH (06:49)
[2023-05-11 06:53] LABS: Glucose,Whole Blood 178 mg/dL (70-110)
[2023-05-11 07:55] LABS: Glucose,Whole Blood 163 mg/dL (70-110)
--- NOTE | 2023-05-11 08:00 | XR ---
EXAMINATION TYPE: XR chest 1V portable DATE OF EXAM: 05/11/2023 COMPARISON: 05/10/2023 HISTORY: Chest pain TECHNIQUE: Single frontal view of the chest is obtained. FINDINGS: There is no focal air space opacity, pleural effusion, or pneumothorax seen. The cardiac silhouette size is within normal limits. The osseous structures are intact. IMPRESSION: 1. No acute process.
[2023-05-11 09:11] LABS: Glucose,Whole Blood 127 mg/dL (70-110)
[2023-05-11 10:07] LABS: Glucose,Whole Blood 120 mg/dL (70-110)
[2023-05-11 11:20] LABS: Glucose,Whole Blood 167 mg/dL (70-110)
[2023-05-11 11:53] LABS: Glucose,Whole Blood 188 mg/dL (70-110)
[2023-05-11] MEDS: IPRATROPIUM-ALBUTEROL 3 ML NEB INHALATION PRN (12:01)
--- NOTE | 2023-05-11 12:07 | P.PN ---
Subjective Progress Note Date: 05/11/23 * 37-year-old gentleman with past medical history significant for diabetes mellitus type 1, presents to the emergency department with complains of runny nose, nasal congestion, sore throat, fever and shortness of breath. Patient was noted to have symptom onset about one week prior to presentation. Patient had upper respiratory illness. Patient was in our emergency department on 05/05 and was tested positive for influenza. Patient was given Tamiflu. Patient had poor appetite in the following days with increased thirst and trouble managing blood sugars. Patient was noted to have significant nausea and vomiting. Patient presented to the emergency department noted to have diabetic ketoacidosis. Upon arrival blood glucose was noted in the high 500s. Serum carbon dioxide less than 5 and significant ketonuria. Patient was started on DKA protocol. Patient was started on insulin drip after 2 L normal syndrome fluid bolus given. Initial lactate on admission was 4.3 with improved post hydration. Patient was also noted to have high potassium which improved. Patient admitted to ICU for further management * 05/11/23: Patient seen and evaluated bedside, patient does complain of cough, having productive phlegm, continue to remain on insulin drip and D5 with potassium supplementation, sodium potassium levels reviewed, electrolyte panel ordered continue to monitor serum sodium levels phosphorous improving. Patient on clear liquid diet., Patient followed up by medical ICU team as well. Electrolyte protocol ordered plan discussed with nursing staff REVIEW OF SYSTEMS: Fever, malaise, cough, runny nose little improvement CONSTITUTIONAL: Fever, malaise, cough, runny nose HEENT: No recent visual problems or hearing problems. Denied any sore throat. CARDIOVASCULAR: No chest pain, orthopnea, PND, no palpitations, no syncope. PULMONARY: Fever, malaise, cough, runny nose, shortness of breath. GASTROINTESTINAL: No diarrhea, no nausea, no vomiting, no abdominal pain. NEUROLOGICAL: No headaches, no weakness, no numbness. HEMATOLOGICAL: Denies any bleeding or petechiae. GENITOURINARY: Denies any burning micturition, frequency, or urgency. MUSCULOSKELETAL/RHEUMATOLOGICAL: Denies any joint pain, swelling, or any muscle pain. ENDOCRINE: Denies any polyuria or polydipsia. PHYSICAL EXAMINATION: GENERAL: The patient is alert and oriented x3, ill appearance HEENT: Pupils are round and equally reacting to light. EOMI. CARDIOVASCULAR: S1 and S2 present. No murmurs, rubs, or gallops. PULMONARY: Decreased breath sounds bilaterally. Tachycardia noted ABDOMEN: Soft, nontender, nondistended, normoactive bowel sounds. No palpable organomegaly. MUSCULOSKELETAL: No joint swelling or deformity. EXTREMITIES: No cyanosis, clubbing, or pedal edema. NEUROLOGICAL: Gross neurological examination did not reveal any focal deficits. SKIN: No rashes. Objective - Vital Signs Vital signs: Vital Signs Temp 100.2 F H 05/11/23 08:00 Pulse 102 H 05/11/23 12:01 Resp 15 05/11/23 11:00 BP 124/74 05/11/23 11:00 Pulse Ox 94 L 05/11/23 11:00 FiO2 Intake & Output 05/10/23 05/11/23 05/11/23 18:59 06:59 18:59 Intake Total 2434.343 2587.017 1067.349 Output Total 2150 1050 0 Balance 566.786 7268.017 1067.349 Weight 106.5 kg Intake: IV 850 Azithromycin 500 mg In 250 Sodium Chloride 0.9% 250 ml @ 250 mls/hr IVPB DAILY [facility] Rx#:[id number] D5-0.45% NaCl with KCl 600 20Meq/l 1,000 ml @ 150 mls/hr IV .Q6H40M [facility] Rx# :[id number] Intake, IV Titration 6353.174 3475.017 217.349 Amount D5-0.45% NaCl with KCl 1800 1800 150 20Meq/l 1,000 ml @ 150 mls/hr IV .Q6H40M [facility] Rx# :[id number] Insulin Regular 100 unit 44.343 67.017 67.349 In Sodium Chloride 0.9% 100 ml @ 0.1 UNITS/KG/HR 9.85 mls/hr IV .[id number] [facility] Rx#:[id number] Oral 590 720 Output: Urine 2150 1050 0 Other: Voiding Method Bedside Commode Urinal # Voids 600 # Bowel Movements 2 - Labs CBC & Chem 7: 05/11/23 05:22 05/11/23 05:22 Labs: Abnormal Lab Results - Last 24 Hours (Table) 05/10/23 05/10/23 05/10/23 Range/Units 12:14 12:19 12:19 Hgb (13.0-17.5) gm/dL Hct (39.0-53.0) % MCV (80.0-100.0) fL Plt Count (150-450) k/uL VBG pCO2 20 L (37-51) mmHg VBG HCO3 11 L (24-28) mmol/L Sodium 129 L (137-145) mmol/L Potassium (3.5-5.1) mmol/L Chloride (98-107) mmol/L Carbon Dioxide 8 L* (22-30) mmol/L BUN 23 H (9-20) mg/dL Glucose 259 H (74-99) mg/dL POC Glucose (mg/dL) 265 H (70-110) mg/dL Calcium (8.4-10.2) mg/dL Phosphorus 1.3 L (2.5-4.5) mg/dL C-Reactive Protein (<1.0) mg/dL Total Protein (6.3-8.2) g/dL Albumin (3.5-5.0) g/dL 05/10/23 05/10/23 05/10/23 Range/Units 13:27 14:08 15:07 Hgb (13.0-17.5) gm/dL Hct (39.0-53.0) % MCV (80.0-100.0) fL Plt Count (150-450) k/uL VBG pCO2 (37-51) mmHg VBG HCO3 (24-28) mmol/L Sodium (137-145) mmol/L Potassium (3.5-5.1) mmol/L Chloride (98-107) mmol/L Carbon Dioxide (22-30) mmol/L BUN (9-20) mg/dL Glucose (74-99) mg/dL POC Glucose (mg/dL) 268 H 230 H 228 H (70-110) mg/dL Calcium (8.4-10.2) mg/dL Phosphorus (2.5-4.5) mg/dL C-Reactive Protein (<1.0) mg/dL Total Protein (6.3-8.2) g/dL Albumin (3.5-5.0) g/dL 05/10/23 05/10/23 05/10/23 Range/Units 16:07 16:18 17:04 Hgb (13.0-17.5) gm/dL Hct (39.0-53.0) % MCV (80.0-100.0) fL Plt Count (150-450) k/uL VBG pCO2 (37-51) mmHg VBG HCO3 (24-28) mmol/L Sodium 131 L (137-145) mmol/L Potassium (3.5-5.1) mmol/L Chloride 108 H (98-107) mmol/L Carbon Dioxide 10 L (22-30) mmol/L BUN (9-20) mg/dL Glucose 249 H (74-99) mg/dL POC Glucose (mg/dL) 223 H 255 H (70-110) mg/dL Calcium (8.4-10.2) mg/dL Phosphorus 1.2 L (2.5-4.5) mg/dL C-Reactive Protein (<1.0) mg/dL Total Protein (6.3-8.2) g/dL Albumin (3.5-5.0) g/dL 05/10/23 05/10/23 05/10/23 Range/Units 18:23 19:10 20:04 Hgb (13.0-17.5) gm/dL Hct (39.0-53.0) % MCV (80.0-100.0) fL Plt Count (150-450) k/uL VBG pCO2 (37-51) mmHg VBG HCO3 (24-28) mmol/L Sodium (137-145) mmol/L Potassium (3.5-5.1) mmol/L Chloride (98-107) mmol/L Carbon Dioxide (22-30) mmol/L BUN (9-20) mg/dL Glucose (74-99) mg/dL POC Glucose (mg/dL) 244 H 243 H 288 H (70-110) mg/dL Calcium (8.4-10.2) mg/dL Phosphorus (2.5-4.5) mg/dL C-Reactive Protein (<1.0) mg/dL Total Protein (6.3-8.2) g/dL Albumin (3.5-5.0) g/dL 05/10/23 05/10/23 05/10/23 Range/Units 20:05 21:01 21:56 Hgb (13.0-17.5) gm/dL Hct (39.0-53.0) % MCV (80.0-100.0) fL Plt Count (150-450) k/uL VBG pCO2 (37-51) mmHg VBG HCO3 (24-28) mmol/L Sodium 131 L (137-145) mmol/L Potassium (3.5-5.1) mmol/L Chloride (98-107) mmol/L Carbon Dioxide 12 L (22-30) mmol/L BUN (9-20) mg/dL Glucose 257 H (74-99) mg/dL POC Glucose (mg/dL) 236 H 262 H (70-110) mg/dL Calcium (8.4-10.2) mg/dL Phosphorus 2.1 L (2.5-4.5) mg/dL C-Reactive Protein (<1.0) mg/dL Total Protein (6.3-8.2) g/dL Albumin (3.5-5.0) g/dL 05/10/23 05/11/23 05/11/23 Range/Units 22:56 00:05 00:31 Hgb (13.0-17.5) gm/dL Hct (39.0-53.0) % MCV (80.0-100.0) fL Plt Count (150-450) k/uL VBG pCO2 (37-51) mmHg VBG HCO3 (24-28) mmol/L Sodium 132 L (137-145) mmol/L Potassium 3.4 L (3.5-5.1) mmol/L Chloride 109 H (98-107) mmol/L Carbon Dioxide 14 L (22-30) mmol/L BUN (9-20) mg/dL Glucose 220 H (74-99) mg/dL POC Glucose (mg/dL) 221 H 191 H (70-110) mg/dL Calcium (8.4-10.2) mg/dL Phosphorus 1.3 L (2.5-4.5) mg/dL C-Reactive Protein (<1.0) mg/dL Total Protein (6.3-8.2) g/dL Albumin (3.5-5.0) g/dL 05/11/23 05/11/23 05/11/23 Range/Units 01:02 02:05 03:06 Hgb (13.0-17.5) gm/dL Hct (39.0-53.0) % MCV (80.0-100.0) fL Plt Count (150-450) k/uL VBG pCO2 (37-51) mmHg VBG HCO3 (24-28) mmol/L Sodium (137-145) mmol/L Potassium (3.5-5.1) mmol/L Chloride (98-107) mmol/L Carbon Dioxide (22-30) mmol/L BUN (9-20) mg/dL Glucose (74-99) mg/dL POC Glucose (mg/dL) 194 H 179 H 185 H (70-110) mg/dL Calcium (8.4-10.2) mg/dL Phosphorus (2.5-4.5) mg/dL C-Reactive Protein (<1.0) mg/dL Total Protein (6.3-8.2) g/dL Albumin (3.5-5.0) g/dL 05/11/23 05/11/23 05/11/23 Range/Units 04:01 05:04 05:22 Hgb 12.6 L D (13.0-17.5) gm/dL Hct 36.2 L (39.0-53.0) % MCV 79.2 L D (80.0-100.0) fL Plt Count 147 L D (150-450) k/uL VBG pCO2 (37-51) mmHg VBG HCO3 (24-28) mmol/L Sodium (137-145) mmol/L Potassium (3.5-5.1) mmol/L Chloride (98-107) mmol/L Carbon Dioxide (22-30) mmol/L BUN (9-20) mg/dL Glucose (74-99) mg/dL POC Glucose (mg/dL) 220 H 192 H (70-110) mg/dL Calcium (8.4-10.2) mg/dL Phosphorus (2.5-4.5) mg/dL C-Reactive Protein (<1.0) mg/dL Total Protein (6.3-8.2) g/dL Albumin (3.5-5.0) g/dL 05/11/23 05/11/23 05/11/23 Range/Units 05:22 05:22 06:03 Hgb (13.0-17.5) gm/dL Hct (39.0-53.0) % MCV (80.0-100.0) fL Plt Count (150-450) k/uL VBG pCO2 (37-51) mmHg VBG HCO3 (24-28) mmol/L Sodium 132 L (137-145) mmol/L Potassium 3.3 L (3.5-5.1) mmol/L Chloride 109 H (98-107) mmol/L Carbon Dioxide 13 L (22-30) mmol/L BUN (9-20) mg/dL Glucose 206 H (74-99) mg/dL POC Glucose (mg/dL) 199 H (70-110) mg/dL Calcium 8.0 L (8.4-10.2) mg/dL Phosphorus 2.4 L (2.5-4.5) mg/dL C-Reactive Protein 6.0 H (<1.0) mg/dL Total Protein 5.0 L (6.3-8.2) g/dL Albumin 2.6 L (3.5-5.0) g/dL 05/11/23 05/11/23 05/11/23 Range/Units 06:52 07:53 09:08 Hgb (13.0-17.5) gm/dL Hct (39.0-53.0) % MCV (80.0-100.0) fL Plt Count (150-450) k/uL VBG pCO2 (37-51) mmHg VBG HCO3 (24-28) mmol/L Sodium (137-145) mmol/L Potassium (3.5-5.1) mmol/L Chloride (98-107) mmol/L Carbon Dioxide (22-30) mmol/L BUN (9-20) mg/dL Glucose (74-99) mg/dL POC Glucose (mg/dL) 178 H 163 H 127 H (70-110) mg/dL Calcium (8.4-10.2) mg/dL Phosphorus (2.5-4.5) mg/dL C-Reactive Protein (<1.0) mg/dL Total Protein (6.3-8.2) g/dL Albumin (3.5-5.0) g/dL 05/11/23 05/11/23 05/11/23 Range/Units 10:05 11:19 11:52 Hgb (13.0-17.5) gm/dL Hct (39.0-53.0) % MCV (80.0-100.0) fL Plt Count (150-450) k/uL VBG pCO2 (37-51) mmHg VBG HCO3 (24-28) mmol/L Sodium (137-145) mmol/L Potassium (3.5-5.1) mmol/L Chloride (98-107) mmol/L Carbon Dioxide (22-30) mmol/L BUN (9-20) mg/dL Glucose (74-99) mg/dL POC Glucose (mg/dL) 120 H 167 H 188 H (70-110) mg/dL Calcium (8.4-10.2) mg/dL Phosphorus (2.5-4.5) mg/dL C-Reactive Protein (<1.0) mg/dL Total Protein (6.3-8.2) g/dL Albumin (3.5-5.0) g/dL Assessment and Plan Assessment: Assessment and plan * Diabetic ketoacidosis * Acute influenza A infection * Severe electrolyte abnormality and Metabolic acidosis * Acute kidney injury secondary to prerenal intravascular volume depletion * Hyperkalemia resolved * Sepsis secondary to viral etiology * Acute hyponatremia * In regards to DKA, patient started on protocol, continue electrolyte panel, appropriately resuscitated with fluid, continue IV insulin, monitor potassium and serum bicarbonate levels, serial VBG obtained * In regards to influenza infection completed Tamiflu, continue breathing treatments as needed, Mucinex ordered, continue azithromycin day 2 * In regards to renal failure continue to follow up basal metabolic panel * In regards to hyperkalemia, patient on insulin drip, follow potassium levels ordered * In regards to sepsis secondary to viral etiology, continue to monitor lactate levels which is elevated secondary to diabetic ketoacidosis * In regards to hyponatremia continue to monitor serum sodium levels * CODE STATUS is full code
[2023-05-11 12:20] VITALS: BMI 32.7
[2023-05-11 13:39] LABS: Potassium 4.2 mmol/L (3.5-5.1)
[2023-05-11 13:44] LABS: ALT 13 U/L (4-49); AST 21 U/L (17-59); African American GFR (CKD) >90 (>60 ml/min/1.73 sqM); Albumin 2.7 g/dL (3.5-5.0); Alkaline Phosphatase 70 U/L (38-126); Anion Gap 11 mmol/L; Blood Urea Nitrogen 10 mg/dL (9-20); Calcium 8.1 mg/dL (8.4-10.2); Carbon Dioxide 12 mmol/L (22-30); Chloride 109 mmol/L (98-107); Glucose 223 mg/dL (74-99); Non-African American GFR(CKD) >90 (>60 ml/min/1.73 sqM); Phosphorus 1.9 mg/dL (2.5-4.5); Potassium 4.1 mmol/L (3.5-5.1); Sodium 132 mmol/L (137-145); Total Bilirubin 0.7 mg/dL (0.2-1.3); Total Protein 5.2 g/dL (6.3-8.2)
--- NOTE | 2023-05-11 13:47 | P.PN ---
Subjective Progress Note Date: 05/11/23 Principal diagnosis: Acute diabetic ketoacidosis I am seeing this patient in consultation today 05/10/2023 in the intensive care unit for acute diabetic ketoacidosis. Patient is also positive for influenza A. Patient is a 37-year-old white male with past medical history significant for type 1 diabetes mellitus. Patient is reporting URI-like symptoms starting approximately 8 days ago. This included runny nose, sore throat, nasal congestion, dry cough, fever and also mild shortness of breath. His girlfriend tested positive for influenza A earlier in the week. He did come to the ER on May 05, and was felt to have influenza A. Initial RNA test was negative. He was started on Tamiflu that day. Over the last couple days, his appetite has been poor. He's had increased thirst. He has had trouble managing his blood sugars at home. They have been running high despite taking insulin. Yesterday, he started having significant nausea and vomiting. He was unable to keep down fluids. He did come to the emergency room yesterday afternoon, and was found to be in diabetic ketoacidosis. On arrival, blood glucose was 584, serum CO2 less than 5, anion gap unmeasurable, and ketonuria. He started on the DKA protocol. Insulin currently infusing at 12 units per hour. D5 Whalf normal salineKCl 20 mEq infusing at 150 ML's per hour. He was fluid resuscitated with 2 L normal saline bolus in the emergency room. Patient was also found have an acute kidney injury. BMP initially showed a sodium of 129, potassium 6.2, chloride 92, BUN 37, creatinine 2.09, glucose 584. Lactic acid was 4.3 and is down to 1.5. Hyperkalemia has since improved and is down to 4.9. EKG shows sinus tachycardia with a rate of 112 bpm. No hyperacute T waves or QRS widening. CBC on arrival shows a WBC count of 17.2, hemoglobin 17.3, hematocrit 55.1, platelets 297. He is afebrile. He was started on Tamiflu. Patient is currently lying in bed, on room air, in no acute distress. Vital signs are stable. He is still tachycardic with a rate of 114 bpm. Blood pressure is normotensive. He will be monitored in the intensive care unit until his DKA resolves. 05/11/23 Patient remains in, remains on the DKA protocol. Patient is still on insulin drip at 2.24 units per hour, he is also on D5 4 5 with 20 of potassium at 150 ML per hour. Continues to have relatively low bicarb, his anion gap has closed, patient continues to have cough, some shortness of breath, no fever, no chills, and he is recovering from influenza A infection. Patient did receive a full course of Tamiflu. Basic metabolic profile today is noted, bicarb remains low at 12 and his anion gap is also 12 blood sugar is 188 Objective - Vital Signs Vital signs: Vital Signs Temp 100.2 F H 05/11/23 08:00 Pulse 102 H 05/11/23 12:18 Resp 15 05/11/23 11:00 BP 124/74 05/11/23 11:00 Pulse Ox 94 L 05/11/23 11:00 FiO2 Intake & Output 05/10/23 05/11/23 05/11/23 18:59 06:59 18:59 Intake Total 2434.343 2587.017 1067.349 Output Total 2150 1050 0 Balance 743.935 9212.017 1067.349 Weight 106.5 kg 106.5 kg Intake: IV 850 Azithromycin 500 mg In 250 Sodium Chloride 0.9% 250 ml @ 250 mls/hr IVPB DAILY [facility] Rx#:[id number] D5-0.45% NaCl with KCl 600 20Meq/l 1,000 ml @ 150 mls/hr IV .Q6H40M [facility] Rx# :[id number] Intake, IV Titration 5132.466 8893.017 217.349 Amount D5-0.45% NaCl with KCl 1800 1800 150 20Meq/l 1,000 ml @ 150 mls/hr IV .Q6H40M [facility] Rx# :[id number] Insulin Regular 100 unit 44.343 67.017 67.349 In Sodium Chloride 0.9% 100 ml @ 0.1 UNITS/KG/HR 9.85 mls/hr IV .[id number] [facility] Rx#:[id number] Oral 590 720 Output: Urine 2150 1050 0 Other: Voiding Method Bedside Commode Urinal # Voids 600 # Bowel Movements 2 - Exam Physical Exam: Revealed 37-year-old white male in no distress Head: Atraumatic, normocephalic HEENT:[Neck is supple.] [No neck masses.] [No thyromegaly.] [No JVD.] Chest: [Clear throughout, no crackles, no rhonchi, no wheezes.] Cardiac Exam: [Normal S1 and S2, no S3 gallop, no murmur.] Abdomen: [Soft, nontender, no megaly, no rebound, no guarding, normal bowel sounds.] Extremities: [No clubbing, no edema, no cyanosis.] Neurological Exam: [No focal neurologic deficit.] Alert and oriented 3. Psychiatric: Normal mood affect and normal mental status exam. Skin: No rash - Labs CBC & Chem 7: 05/11/23 05:22 05/11/23 12:27 Labs: Abnormal Lab Results - Last 24 Hours (Table) 05/10/23 05/10/23 05/10/23 Range/Units 12:19 14:08 15:07 Hgb (13.0-17.5) gm/dL Hct (39.0-53.0) % MCV (80.0-100.0) fL Plt Count (150-450) k/uL Sodium 129 L (137-145) mmol/L Potassium (3.5-5.1) mmol/L Chloride (98-107) mmol/L Carbon Dioxide 8 L* (22-30) mmol/L BUN 23 H (9-20) mg/dL Glucose 259 H (74-99) mg/dL POC Glucose (mg/dL) 230 H 228 H (70-110) mg/dL Calcium (8.4-10.2) mg/dL Phosphorus 1.3 L (2.5-4.5) mg/dL C-Reactive Protein (<1.0) mg/dL Total Protein (6.3-8.2) g/dL Albumin (3.5-5.0) g/dL 05/10/23 05/10/23 05/10/23 Range/Units 16:07 16:18 17:04 Hgb (13.0-17.5) gm/dL Hct (39.0-53.0) % MCV (80.0-100.0) fL Plt Count (150-450) k/uL Sodium 131 L (137-145) mmol/L Potassium (3.5-5.1) mmol/L Chloride 108 H (98-107) mmol/L Carbon Dioxide 10 L (22-30) mmol/L BUN (9-20) mg/dL Glucose 249 H (74-99) mg/dL POC Glucose (mg/dL) 223 H 255 H (70-110) mg/dL Calcium (8.4-10.2) mg/dL Phosphorus 1.2 L (2.5-4.5) mg/dL C-Reactive Protein (<1.0) mg/dL Total Protein (6.3-8.2) g/dL Albumin (3.5-5.0) g/dL 05/10/23 05/10/23 05/10/23 Range/Units 18:23 19:10 20:04 Hgb (13.0-17.5) gm/dL Hct (39.0-53.0) % MCV (80.0-100.0) fL Plt Count (150-450) k/uL Sodium (137-145) mmol/L Potassium (3.5-5.1) mmol/L Chloride (98-107) mmol/L Carbon Dioxide (22-30) mmol/L BUN (9-20) mg/dL Glucose (74-99) mg/dL POC Glucose (mg/dL) 244 H 243 H 288 H (70-110) mg/dL Calcium (8.4-10.2) mg/dL Phosphorus (2.5-4.5) mg/dL C-Reactive Protein (<1.0) mg/dL Total Protein (6.3-8.2) g/dL Albumin (3.5-5.0) g/dL 05/10/23 05/10/23 05/10/23 Range/Units 20:05 21:01 21:56 Hgb (13.0-17.5) gm/dL Hct (39.0-53.0) % MCV (80.0-100.0) fL Plt Count (150-450) k/uL Sodium 131 L (137-145) mmol/L Potassium (3.5-5.1) mmol/L Chloride (98-107) mmol/L Carbon Dioxide 12 L (22-30) mmol/L BUN (9-20) mg/dL Glucose 257 H (74-99) mg/dL POC Glucose (mg/dL) 236 H 262 H (70-110) mg/dL Calcium (8.4-10.2) mg/dL Phosphorus 2.1 L (2.5-4.5) mg/dL C-Reactive Protein (<1.0) mg/dL Total Protein (6.3-8.2) g/dL Albumin (3.5-5.0) g/dL 05/10/23 05/11/23 05/11/23 Range/Units 22:56 00:05 00:31 Hgb (13.0-17.5) gm/dL Hct (39.0-53.0) % MCV (80.0-100.0) fL Plt Count (150-450) k/uL Sodium 132 L (137-145) mmol/L Potassium 3.4 L (3.5-5.1) mmol/L Chloride 109 H (98-107) mmol/L Carbon Dioxide 14 L (22-30) mmol/L BUN (9-20) mg/dL Glucose 220 H (74-99) mg/dL POC Glucose (mg/dL) 221 H 191 H (70-110) mg/dL Calcium (8.4-10.2) mg/dL Phosphorus 1.3 L (2.5-4.5) mg/dL C-Reactive Protein (<1.0) mg/dL Total Protein (6.3-8.2) g/dL Albumin (3.5-5.0) g/dL 05/11/23 05/11/23 05/11/23 Range/Units 01:02 02:05 03:06 Hgb (13.0-17.5) gm/dL Hct (39.0-53.0) % MCV (80.0-100.0) fL Plt Count (150-450) k/uL Sodium (137-145) mmol/L Potassium (3.5-5.1) mmol/L Chloride (98-107) mmol/L Carbon Dioxide (22-30) mmol/L BUN (9-20) mg/dL Glucose (74-99) mg/dL POC Glucose (mg/dL) 194 H 179 H 185 H (70-110) mg/dL Calcium (8.4-10.2) mg/dL Phosphorus (2.5-4.5) mg/dL C-Reactive Protein (<1.0) mg/dL Total Protein (6.3-8.2) g/dL Albumin (3.5-5.0) g/dL 05/11/23 05/11/23 05/11/23 Range/Units 04:01 05:04 05:22 Hgb 12.6 L D (13.0-17.5) gm/dL Hct 36.2 L (39.0-53.0) % MCV 79.2 L D (80.0-100.0) fL Plt Count 147 L D (150-450) k/uL Sodium (137-145) mmol/L Potassium (3.5-5.1) mmol/L Chloride (98-107) mmol/L Carbon Dioxide (22-30) mmol/L BUN (9-20) mg/dL Glucose (74-99) mg/dL POC Glucose (mg/dL) 220 H 192 H (70-110) mg/dL Calcium (8.4-10.2) mg/dL Phosphorus (2.5-4.5) mg/dL C-Reactive Protein (<1.0) mg/dL Total Protein (6.3-8.2) g/dL Albumin (3.5-5.0) g/dL 05/11/23 05/11/23 05/11/23 Range/Units 05:22 05:22 06:03 Hgb (13.0-17.5) gm/dL Hct (39.0-53.0) % MCV (80.0-100.0) fL Plt Count (150-450) k/uL Sodium 132 L (137-145) mmol/L Potassium 3.3 L (3.5-5.1) mmol/L Chloride 109 H (98-107) mmol/L Carbon Dioxide 13 L (22-30) mmol/L BUN (9-20) mg/dL Glucose 206 H (74-99) mg/dL POC Glucose (mg/dL) 199 H (70-110) mg/dL Calcium 8.0 L (8.4-10.2) mg/dL Phosphorus 2.4 L (2.5-4.5) mg/dL C-Reactive Protein 6.0 H (<1.0) mg/dL Total Protein 5.0 L (6.3-8.2) g/dL Albumin 2.6 L (3.5-5.0) g/dL 05/11/23 05/11/23 05/11/23 Range/Units 06:52 07:53 09:08 Hgb (13.0-17.5) gm/dL Hct (39.0-53.0) % MCV (80.0-100.0) fL Plt Count (150-450) k/uL Sodium (137-145) mmol/L Potassium (3.5-5.1) mmol/L Chloride (98-107) mmol/L Carbon Dioxide (22-30) mmol/L BUN (9-20) mg/dL Glucose (74-99) mg/dL POC Glucose (mg/dL) 178 H 163 H 127 H (70-110) mg/dL Calcium (8.4-10.2) mg/dL Phosphorus (2.5-4.5) mg/dL C-Reactive Protein (<1.0) mg/dL Total Protein (6.3-8.2) g/dL Albumin (3.5-5.0) g/dL 05/11/23 05/11/23 05/11/23 Range/Units 10:05 11:19 11:52 Hgb (13.0-17.5) gm/dL Hct (39.0-53.0) % MCV (80.0-100.0) fL Plt Count (150-450) k/uL Sodium (137-145) mmol/L Potassium (3.5-5.1) mmol/L Chloride (98-107) mmol/L Carbon Dioxide (22-30) mmol/L BUN (9-20) mg/dL Glucose (74-99) mg/dL POC Glucose (mg/dL) 120 H 167 H 188 H (70-110) mg/dL Calcium (8.4-10.2) mg/dL Phosphorus (2.5-4.5) mg/dL C-Reactive Protein (<1.0) mg/dL Total Protein (6.3-8.2) g/dL Albumin (3.5-5.0) g/dL 05/11/23 Range/Units 12:27 Hgb (13.0-17.5) gm/dL Hct (39.0-53.0) % MCV (80.0-100.0) fL Plt Count (150-450) k/uL Sodium 133 L (137-145) mmol/L Potassium (3.5-5.1) mmol/L Chloride 109 H (98-107) mmol/L Carbon Dioxide 12 L (22-30) mmol/L BUN (9-20) mg/dL Glucose (74-99) mg/dL POC Glucose (mg/dL) (70-110) mg/dL Calcium (8.4-10.2) mg/dL Phosphorus (2.5-4.5) mg/dL C-Reactive Protein (<1.0) mg/dL Total Protein (6.3-8.2) g/dL Albumin (3.5-5.0) g/dL Assessment and Plan Assessment: Impression: Acute diabetic ketoacidosis, likely exacerbated by influenza A infection. Acute influenza A infection, see full course of Tamiflu Severe metabolic anion gap acidosis, secondary to above Leukocytosis Acute kidney injury, prerenal related dehydration, resolved Hypovolemic hyponatremia Hyperkalemia, resolved Type 1 diabetes mellitus. Patient is normally on Lantus insulin 40 units twice a day, and he takes Humalog insulin with meals. Recommendation: Continue DKA protocol Continue to monitor in the ICU Continue to monitor labs and adjust electrolytes accordingly Consider transitioning the patient in the next 24 hours to Lantus insulin and Hu malog insulin. Using sliding scale coverage Continue GI and DVT prophylaxis We'll continue to follow Time with Patient: Less than 30
[2023-05-11 13:56] LABS: Glucose,Whole Blood 290 mg/dL (70-110)
[2023-05-11 15:14] LABS: Glucose,Whole Blood 331 mg/dL (70-110)
[2023-05-11 16:01] LABS: Glucose,Whole Blood 306 mg/dL (70-110)
[2023-05-11 16:59] LABS: Glucose,Whole Blood 302 mg/dL (70-110)
[2023-05-11 17:35] LABS: African American GFR (CKD) >90 (>60 ml/min/1.73 sqM); Anion Gap 10 mmol/L; Blood Urea Nitrogen 9 mg/dL (9-20); Carbon Dioxide 12 mmol/L (22-30); Chloride 109 mmol/L (98-107); Glucose 343 mg/dL (74-99); Non-African American GFR(CKD) >90 (>60 ml/min/1.73 sqM); Potassium 3.9 mmol/L (3.5-5.1); Sodium 131 mmol/L (137-145)
[2023-05-11 18:12] LABS: Glucose,Whole Blood 380 mg/dL (70-110)
[2023-05-11 19:07] LABS: Glucose,Whole Blood 338 mg/dL (70-110)
[2023-05-11 20:07] LABS: Glucose,Whole Blood 298 mg/dL (70-110)
[2023-05-11 21:08] LABS: Glucose,Whole Blood 286 mg/dL (70-110)
[2023-05-11] MEDS: MELATONIN 5 MG TABLET PO SCH (21:53)
[2023-05-11 21:56] LABS: Glucose,Whole Blood 268 mg/dL (70-110)
[2023-05-11 23:04] LABS: Glucose,Whole Blood 193 mg/dL (70-110)
[2023-05-11 23:28] LABS: Appearance,Urine Clear (Clear); Bilirubin,Urine Negative (Negative); Blood,Urine Trace (Negative); Color,Urine Colorless; Glucose,Urine (UA) 4+ (Negative); Ketones,Urine Negative (Negative); Leukocyte Esterase,Urine Negative (Negative); Nitrite,Urine Negative (Negative); Protein,Urine Negative (Negative); RBC,Urine 1 /hpf (0-5); Specific Gravity,Urine 1.011 (1.001-1.035); Urobilinogen,Urine <2.0 mg/dL (<2.0); WBC,Urine <1 /hpf (0-5)
[2023-05-12 00:01] LABS: Glucose,Whole Blood 137 mg/dL (70-110)
[2023-05-12 01:02] LABS: Glucose,Whole Blood 130 mg/dL (70-110)
[2023-05-12 01:32] LABS: African American GFR (CKD) >90 (>60 ml/min/1.73 sqM); Anion Gap 9 mmol/L; Blood Urea Nitrogen 6 mg/dL (9-20); Carbon Dioxide 14 mmol/L (22-30); Chloride 113 mmol/L (98-107); Glucose 139 mg/dL (74-99); Non-African American GFR(CKD) >90 (>60 ml/min/1.73 sqM); Potassium 3.3 mmol/L (3.5-5.1); Sodium 136 mmol/L (137-145)
[2023-05-12 02:01] LABS: Glucose,Whole Blood 162 mg/dL (70-110)
[2023-05-12 03:04] LABS: Glucose,Whole Blood 206 mg/dL (70-110)
[2023-05-12 04:12] LABS: Glucose,Whole Blood 238 mg/dL (70-110)
[2023-05-12 05:07] LABS: Glucose,Whole Blood 215 mg/dL (70-110)
[2023-05-12 06:06] LABS: Glucose,Whole Blood 232 mg/dL (70-110)
[2023-05-12] MEDS: NYSTATIN 100,000 UNIT/GM POWD 15 GM TOPICAL PRN (06:47)
[2023-05-12 06:52] LABS: HCT 32.7 % (39.0-53.0); HGB 11.4 gm/dL (13.0-17.5); MCH 27.8 pg (25.0-35.0); MCHC 34.7 g/dL (31.0-37.0); MCV 80.1 fL (80.0-100.0); Mean Platelet Volume 9.3; Platelet Count 143 k/uL (150-450); RBC 4.08 m/uL (4.30-5.90); RDW 14.6 % (11.5-15.5); WBC 5.9 k/uL (3.8-10.6)
[2023-05-12 06:54] LABS: Glucose,Whole Blood 238 mg/dL (70-110)
[2023-05-12 07:02] LABS: ALT 14 U/L (4-49); AST 19 U/L (17-59); African American GFR (CKD) >90 (>60 ml/min/1.73 sqM); Albumin 2.6 g/dL (3.5-5.0); Alkaline Phosphatase 67 U/L (38-126); Anion Gap 8 mmol/L; Blood Urea Nitrogen 5 mg/dL (9-20); Calcium 8.1 mg/dL (8.4-10.2); Carbon Dioxide 15 mmol/L (22-30); Chloride 111 mmol/L (98-107); Glucose 230 mg/dL (74-99); Non-African American GFR(CKD) >90 (>60 ml/min/1.73 sqM); Phosphorus 2.6 mg/dL (2.5-4.5); Sodium 134 mmol/L (137-145); Total Bilirubin 0.7 mg/dL (0.2-1.3); Total Protein 5.1 g/dL (6.3-8.2)
[2023-05-12 08:02] LABS: Glucose,Whole Blood 287 mg/dL (70-110)
[2023-05-12 09:09] LABS: Glucose,Whole Blood 319 mg/dL (70-110)
[2023-05-12 10:17] LABS: Glucose,Whole Blood 323 mg/dL (70-110)
[2023-05-12 10:33] LABS: ALT 15 U/L (4-49); AST 18 U/L (17-59); African American GFR (CKD) >90 (>60 ml/min/1.73 sqM); Albumin 2.4 g/dL (3.5-5.0); Alkaline Phosphatase 67 U/L (38-126); Anion Gap 6 mmol/L; Blood Urea Nitrogen 5 mg/dL (9-20); Calcium 7.9 mg/dL (8.4-10.2); Carbon Dioxide 16 mmol/L (22-30); Chloride 112 mmol/L (98-107); Glucose 344 mg/dL (74-99); Non-African American GFR(CKD) >90 (>60 ml/min/1.73 sqM); Phosphorus 2.2 mg/dL (2.5-4.5); Sodium 134 mmol/L (137-145); Total Bilirubin 0.6 mg/dL (0.2-1.3); Total Protein 4.8 g/dL (6.3-8.2)
[2023-05-12 11:09] LABS: Glucose,Whole Blood 334 mg/dL (70-110)
--- NOTE | 2023-05-12 11:42 | P.PN ---
Subjective Progress Note Date: 05/12/23 * 37-year-old gentleman with past medical history significant for diabetes mellitus type 1, presents to the emergency department with complains of runny nose, nasal congestion, sore throat, fever and shortness of breath. Patient was noted to have symptom onset about one week prior to presentation. Patient had upper respiratory illness. Patient was in our emergency department on 05/05 and was tested positive for influenza. Patient was given Tamiflu. Patient had poor appetite in the following days with increased thirst and trouble managing blood sugars. Patient was noted to have significant nausea and vomiting. Patient presented to the emergency department noted to have diabetic ketoacidosis. Upon arrival blood glucose was noted in the high 500s. Serum carbon dioxide less than 5 and significant ketonuria. Patient was started on DKA protocol. Patient was started on insulin drip after 2 L normal syndrome fluid bolus given. Initial lactate on admission was 4.3 with improved post hydration. Patient was also noted to have high potassium which improved. Patient admitted to ICU for further management * 05/11/23: Patient seen and evaluated bedside, patient does complain of cough, having productive phlegm, continue to remain on insulin drip and D5 with potassium supplementation, sodium potassium levels reviewed, electrolyte panel ordered continue to monitor serum sodium levels phosphorous improving. Patient on clear liquid diet., Patient followed up by medical ICU team as well. Electrolyte protocol ordered plan discussed with nursing staff * 05/12: Patient seen and evaluated bedside, patient has been advanced to diabetic diet, serum bicarbonate improving as well, continue IV insulin along with D5 supplementation continue on electrolyte protocol. Patient to remain in ICU, continue to monitor electrolytes on DKA protocol REVIEW OF SYSTEMS: Fever, malaise, cough, runny nose improved 05/12 CONSTITUTIONAL: Fever, malaise, cough, runny nose HEENT: No recent visual problems or hearing problems. Denied any sore throat. CARDIOVASCULAR: No chest pain, orthopnea, PND, no palpitations, no syncope. PULMONARY: Fever, malaise, cough, runny nose, shortness of breath. GASTROINTESTINAL: No diarrhea, no nausea, no vomiting, no abdominal pain. NEUROLOGICAL: No headaches, no weakness, no numbness. HEMATOLOGICAL: Denies any bleeding or petechiae. GENITOURINARY: Denies any burning micturition, frequency, or urgency. MUSCULOSKELETAL/RHEUMATOLOGICAL: Denies any joint pain, swelling, or any muscle pain. ENDOCRINE: Denies any polyuria or polydipsia. PHYSICAL EXAMINATION: GENERAL: The patient is alert and oriented x3, ill appearance HEENT: Pupils are round and equally reacting to light. EOMI. CARDIOVASCULAR: S1 and S2 present. No murmurs, rubs, or gallops. PULMONARY: Improved breath sounds bilaterally him a tachycardia noted ABDOMEN: Soft, nontender, nondistended, normoactive bowel sounds. No palpable organomegaly. MUSCULOSKELETAL: No joint swelling or deformity. EXTREMITIES: No cyanosis, clubbing, or pedal edema. NEUROLOGICAL: Gross neurological examination did not reveal any focal deficits. SKIN: No rashes. Objective - Vital Signs Vital signs: Vital Signs Temp 98.1 F 05/12/23 08:00 Pulse 98 05/12/23 10:00 Resp 26 H 05/12/23 11:00 BP 136/86 05/12/23 11:00 Pulse Ox 95 05/12/23 11:00 FiO2 Intake & Output 05/11/23 05/12/23 05/12/23 18:59 06:59 18:59 Intake Total 3208.705 2574.260 1662.132 Output Total 0 2600 850 Balance 3208.705 -25.740 812.132 Weight 106.5 kg 109.5 kg Intake: IV 2150 1800 850 Azithromycin 500 mg In 250 250 Sodium Chloride 0.9% 250 ml @ 250 mls/hr IVPB DAILY [facility] Rx#:[id number] D5-0.45% NaCl with KCl 1650 1800 600 20Meq/l 1,000 ml @ 75 mls /hr IV .[id number] [facility] Rx#: [id number] Sodium Phosphate 30 mmol 250 In Dextrose 5% in Water 250 ml @ 65 mls/hr IVPB ONCE ONE Rx#:[id number] Intake, IV Titration 238.705 54.260 32.132 Amount D5-0.45% NaCl with KCl 150 20Meq/l 1,000 ml @ 75 mls /hr IV .[id number] [facility] Rx#: [id number] Insulin Regular 100 unit 88.705 54.260 32.132 In Sodium Chloride 0.9% 100 ml @ 0.1 UNITS/KG/HR 9.85 mls/hr IV .[id number] [facility] Rx#:[id number] Oral 820 852 780 Output: Urine 0 2600 850 Other: Voiding Method Bedside Commode Urinal Urinal # Voids 1 # Bowel Movements 1 - Labs CBC & Chem 7: 05/12/23 06:41 05/12/23 09:44 Labs: Abnormal Lab Results - Last 24 Hours (Table) 05/11/23 05/11/23 05/11/23 Range/Units 11:52 12:27 12:27 RBC (4.30-5.90) m/uL Hgb (13.0-17.5) gm/dL Hct (39.0-53.0) % Plt Count (150-450) k/uL Sodium 132 L 133 L (137-145) mmol/L Potassium (3.5-5.1) mmol/L Chloride 109 H 109 H (98-107) mmol/L Carbon Dioxide 12 L 12 L (22-30) mmol/L BUN (9-20) mg/dL Creatinine (0.66-1.25) mg/dL Glucose 223 H (74-99) mg/dL POC Glucose (mg/dL) 188 H (70-110) mg/dL Calcium 8.1 L (8.4-10.2) mg/dL Phosphorus 1.9 L (2.5-4.5) mg/dL Total Protein 5.2 L (6.3-8.2) g/dL Albumin 2.7 L (3.5-5.0) g/dL Urine Glucose (UA) (Negative) Urine Blood (Negative) 05/11/23 05/11/23 05/11/23 Range/Units 13:54 15:14 15:59 RBC (4.30-5.90) m/uL Hgb (13.0-17.5) gm/dL Hct (39.0-53.0) % Plt Count (150-450) k/uL Sodium (137-145) mmol/L Potassium (3.5-5.1) mmol/L Chloride (98-107) mmol/L Carbon Dioxide (22-30) mmol/L BUN (9-20) mg/dL Creatinine (0.66-1.25) mg/dL Glucose (74-99) mg/dL POC Glucose (mg/dL) 290 H 331 H 306 H (70-110) mg/dL Calcium (8.4-10.2) mg/dL Phosphorus (2.5-4.5) mg/dL Total Protein (6.3-8.2) g/dL Albumin (3.5-5.0) g/dL Urine Glucose (UA) (Negative) Urine Blood (Negative) 05/11/23 05/11/23 05/11/23 Range/Units 16:55 16:58 18:10 RBC (4.30-5.90) m/uL Hgb (13.0-17.5) gm/dL Hct (39.0-53.0) % Plt Count (150-450) k/uL Sodium 131 L (137-145) mmol/L Potassium (3.5-5.1) mmol/L Chloride 109 H (98-107) mmol/L Carbon Dioxide 12 L (22-30) mmol/L BUN (9-20) mg/dL Creatinine (0.66-1.25) mg/dL Glucose 343 H (74-99) mg/dL POC Glucose (mg/dL) 302 H 380 H (70-110) mg/dL Calcium 8.0 L (8.4-10.2) mg/dL Phosphorus (2.5-4.5) mg/dL Total Protein (6.3-8.2) g/dL Albumin (3.5-5.0) g/dL Urine Glucose (UA) (Negative) Urine Blood (Negative) 05/11/23 05/11/23 05/11/23 Range/Units 19:04 20:04 21:07 RBC (4.30-5.90) m/uL Hgb (13.0-17.5) gm/dL Hct (39.0-53.0) % Plt Count (150-450) k/uL Sodium (137-145) mmol/L Potassium (3.5-5.1) mmol/L Chloride (98-107) mmol/L Carbon Dioxide (22-30) mmol/L BUN (9-20) mg/dL Creatinine (0.66-1.25) mg/dL Glucose (74-99) mg/dL POC Glucose (mg/dL) 338 H 298 H 286 H (70-110) mg/dL Calcium (8.4-10.2) mg/dL Phosphorus (2.5-4.5) mg/dL Total Protein (6.3-8.2) g/dL Albumin (3.5-5.0) g/dL Urine Glucose (UA) (Negative) Urine Blood (Negative) 05/11/23 05/11/23 05/11/23 Range/Units 21:55 22:26 23:02 RBC (4.30-5.90) m/uL Hgb (13.0-17.5) gm/dL Hct (39.0-53.0) % Plt Count (150-450) k/uL Sodium (137-145) mmol/L Potassium (3.5-5.1) mmol/L Chloride (98-107) mmol/L Carbon Dioxide (22-30) mmol/L BUN (9-20) mg/dL Creatinine (0.66-1.25) mg/dL Glucose (74-99) mg/dL POC Glucose (mg/dL) 268 H 193 H (70-110) mg/dL Calcium (8.4-10.2) mg/dL Phosphorus (2.5-4.5) mg/dL Total Protein (6.3-8.2) g/dL Albumin (3.5-5.0) g/dL Urine Glucose (UA) 4+ H (Negative) Urine Blood Trace H (Negative) 05/12/23 05/12/23 05/12/23 Range/Units 00:00 00:34 01:00 RBC (4.30-5.90) m/uL Hgb (13.0-17.5) gm/dL Hct (39.0-53.0) % Plt Count (150-450) k/uL Sodium 136 L (137-145) mmol/L Potassium 3.3 L (3.5-5.1) mmol/L Chloride 113 H (98-107) mmol/L Carbon Dioxide 14 L (22-30) mmol/L BUN 6 L (9-20) mg/dL Creatinine (0.66-1.25) mg/dL Glucose 139 H (74-99) mg/dL POC Glucose (mg/dL) 137 H 130 H (70-110) mg/dL Calcium 8.0 L (8.4-10.2) mg/dL Phosphorus (2.5-4.5) mg/dL Total Protein (6.3-8.2) g/dL Albumin (3.5-5.0) g/dL Urine Glucose (UA) (Negative) Urine Blood (Negative) 05/12/23 05/12/23 05/12/23 Range/Units 01:59 03:02 04:10 RBC (4.30-5.90) m/uL Hgb (13.0-17.5) gm/dL Hct (39.0-53.0) % Plt Count (150-450) k/uL Sodium (137-145) mmol/L Potassium (3.5-5.1) mmol/L Chloride (98-107) mmol/L Carbon Dioxide (22-30) mmol/L BUN (9-20) mg/dL Creatinine (0.66-1.25) mg/dL Glucose (74-99) mg/dL POC Glucose (mg/dL) 162 H 206 H 238 H (70-110) mg/dL Calcium (8.4-10.2) mg/dL Phosphorus (2.5-4.5) mg/dL Total Protein (6.3-8.2) g/dL Albumin (3.5-5.0) g/dL Urine Glucose (UA) (Negative) Urine Blood (Negative) 05/12/23 05/12/23 05/12/23 Range/Units 05:05 05:08 06:05 RBC (4.30-5.90) m/uL Hgb (13.0-17.5) gm/dL Hct (39.0-53.0) % Plt Count (150-450) k/uL Sodium 134 L (137-145) mmol/L Potassium (3.5-5.1) mmol/L Chloride 111 H (98-107) mmol/L Carbon Dioxide 15 L (22-30) mmol/L BUN 5 L (9-20) mg/dL Creatinine 0.63 L (0.66-1.25) mg/dL Glucose 230 H (74-99) mg/dL POC Glucose (mg/dL) 215 H 232 H (70-110) mg/dL Calcium 8.1 L (8.4-10.2) mg/dL Phosphorus (2.5-4.5) mg/dL Total Protein 5.1 L (6.3-8.2) g/dL Albumin 2.6 L (3.5-5.0) g/dL Urine Glucose (UA) (Negative) Urine Blood (Negative) 05/12/23 05/12/23 05/12/23 Range/Units 06:41 06:52 08:01 RBC 4.08 L (4.30-5.90) m/uL Hgb 11.4 L (13.0-17.5) gm/dL Hct 32.7 L (39.0-53.0) % Plt Count 143 L (150-450) k/uL Sodium (137-145) mmol/L Potassium (3.5-5.1) mmol/L Chloride (98-107) mmol/L Carbon Dioxide (22-30) mmol/L BUN (9-20) mg/dL Creatinine (0.66-1.25) mg/dL Glucose (74-99) mg/dL POC Glucose (mg/dL) 238 H 287 H (70-110) mg/dL Calcium (8.4-10.2) mg/dL Phosphorus (2.5-4.5) mg/dL Total Protein (6.3-8.2) g/dL Albumin (3.5-5.0) g/dL Urine Glucose (UA) (Negative) Urine Blood (Negative) 05/12/23 05/12/23 05/12/23 Range/Units 09:07 09:44 10:15 RBC (4.30-5.90) m/uL Hgb (13.0-17.5) gm/dL Hct (39.0-53.0) % Plt Count (150-450) k/uL Sodium 134 L (137-145) mmol/L Potassium (3.5-5.1) mmol/L Chloride 112 H (98-107) mmol/L Carbon Dioxide 16 L (22-30) mmol/L BUN 5 L (9-20) mg/dL Creatinine (0.66-1.25) mg/dL Glucose 344 H (74-99) mg/dL POC Glucose (mg/dL) 319 H 323 H (70-110) mg/dL Calcium 7.9 L (8.4-10.2) mg/dL Phosphorus 2.2 L (2.5-4.5) mg/dL Total Protein 4.8 L (6.3-8.2) g/dL Albumin 2.4 L (3.5-5.0) g/dL Urine Glucose (UA) (Negative) Urine Blood (Negative) 05/12/23 Range/Units 11:07 RBC (4.30-5.90) m/uL Hgb (13.0-17.5) gm/dL Hct (39.0-53.0) % Plt Count (150-450) k/uL Sodium (137-145) mmol/L Potassium (3.5-5.1) mmol/L Chloride (98-107) mmol/L Carbon Dioxide (22-30) mmol/L BUN (9-20) mg/dL Creatinine (0.66-1.25) mg/dL Glucose (74-99) mg/dL POC Glucose (mg/dL) 334 H (70-110) mg/dL Calcium (8.4-10.2) mg/dL Phosphorus (2.5-4.5) mg/dL Total Protein (6.3-8.2) g/dL Albumin (3.5-5.0) g/dL Urine Glucose (UA) (Negative) Urine Blood (Negative) Assessment and Plan Assessment: Assessment and plan * Diabetic ketoacidosis * Acute influenza A infection * Severe electrolyte abnormality and Metabolic acidosis * Acute kidney injury secondary to prerenal intravascular volume depletion * Hyperkalemia resolved * Sepsis secondary to viral etiology * Acute hyponatremia * In regards to DKA, patient started on protocol, continue electrolyte panel, appropriately resuscitated with fluid, continue IV insulin, monitor potassium and serum bicarbonate levels, serial VBG obtained * In regards to influenza infection completed Tamiflu, continue breathing treatments as needed, Mucinex ordered, continue azithromycin day 3/ * In regards to renal failure continue to follow up basal metabolic panel * In regards to hyperkalemia, patient on insulin drip, follow potassium levels ordered * In regards to sepsis secondary to viral etiology, continue to monitor lactate levels which is elevated secondary to diabetic ketoacidosis * In regards to hyponatremia continue to monitor serum sodium levels * CODE STATUS is full code Time with Patient: Greater than 30
[2023-05-12 12:06] LABS: Glucose,Whole Blood 239 mg/dL (70-110)
[2023-05-12 13:04] LABS: Glucose,Whole Blood 267 mg/dL (70-110)
--- NOTE | 2023-05-12 13:08 | P.PN ---
Subjective Progress Note Date: 05/12/23 Principal diagnosis: Acute diabetic ketoacidosis I am seeing this patient in consultation today 05/10/2023 in the intensive care unit for acute diabetic ketoacidosis. Patient is also positive for influenza A. Patient is a 37-year-old white male with past medical history significant for type 1 diabetes mellitus. Patient is reporting URI-like symptoms starting approximately 8 days ago. This included runny nose, sore throat, nasal congestion, dry cough, fever and also mild shortness of breath. His girlfriend tested positive for influenza A earlier in the week. He did come to the ER on May 05, and was felt to have influenza A. Initial RNA test was negative. He was started on Tamiflu that day. Over the last couple days, his appetite has been poor. He's had increased thirst. He has had trouble managing his blood sugars at home. They have been running high despite taking insulin. Yesterday, he started having significant nausea and vomiting. He was unable to keep down fluids. He did come to the emergency room yesterday afternoon, and was found to be in diabetic ketoacidosis. On arrival, blood glucose was 584, serum CO2 less than 5, anion gap unmeasurable, and ketonuria. He started on the DKA protocol. Insulin currently infusing at 12 units per hour. D5 Whalf normal salineKCl 20 mEq infusing at 150 ML's per hour. He was fluid resuscitated with 2 L normal saline bolus in the emergency room. Patient was also found have an acute kidney injury. BMP initially showed a sodium of 129, potassium 6.2, chloride 92, BUN 37, creatinine 2.09, glucose 584. Lactic acid was 4.3 and is down to 1.5. Hyperkalemia has since improved and is down to 4.9. EKG shows sinus tachycardia with a rate of 112 bpm. No hyperacute T waves or QRS widening. CBC on arrival shows a WBC count of 17.2, hemoglobin 17.3, hematocrit 55.1, platelets 297. He is afebrile. He was started on Tamiflu. Patient is currently lying in bed, on room air, in no acute distress. Vital signs are stable. He is still tachycardic with a rate of 114 bpm. Blood pressure is normotensive. He will be monitored in the intensive care unit until his DKA resolves. 05/11/23 Patient remains in, remains on the DKA protocol. Patient is still on insulin drip at 2.24 units per hour, he is also on D5 4 5 with 20 of potassium at 150 ML per hour. Continues to have relatively low bicarb, his anion gap has closed, patient continues to have cough, some shortness of breath, no fever, no chills, and he is recovering from influenza A infection. Patient did receive a full course of Tamiflu. Basic metabolic profile today is noted, bicarb remains low at 12 and his anion gap is also 12 blood sugar is 188 Reevaluated today on 05/12/23, patient remains in the ICU, clinically he is feel ing much better, nonetheless his blood sugars remain high, and bicarb remains 15 with closure of his anion gap. Patient is on IV fluid D5 4 5 at 1 50 mL per hour and I cut it down to 75 mL per hour patient is already getting liquids orally. Still requiring 4.56 units of insulin per hour. And he is not quite ready to be transitioned to subcu insulin including Lantus insulin and Humalog insulin. At this point we'll continue present treatment plan as per the DKA protocol, and we'll continue to monitor the patient in the ICU for the next 24 hours. Doubt RTA in this patient,/type IV RTA, urine pH is 6.0, it was 5.5 yesterday, plasma renin and aldosterone are pending. Looking at patient's pr evious labs, his bicarb has been in the 20th + range. Objective - Vital Signs Vital signs: Vital Signs Temp 98.1 F 05/12/23 12:00 Pulse 98 05/12/23 10:00 Resp 25 H 05/12/23 12:00 BP 139/75 05/12/23 12:00 Pulse Ox 96 05/12/23 12:00 FiO2 Intake & Output 05/11/23 05/12/23 05/12/23 18:59 06:59 18:59 Intake Total 3208.705 2574.260 1812.132 Output Total 0 2600 850 Balance 3208.705 -25.740 962.132 Weight 106.5 kg 109.5 kg Intake: IV 2150 1800 1000 Azithromycin 500 mg In 250 250 Sodium Chloride 0.9% 250 ml @ 250 mls/hr IVPB DAILY [facility] Rx#:[id number] D5-0.45% NaCl with KCl 1650 1800 750 20Meq/l 1,000 ml @ 75 mls /hr IV .[id number] [facility] Rx#: [id number] Sodium Phosphate 30 mmol 250 In Dextrose 5% in Water 250 ml @ 65 mls/hr IVPB ONCE ONE Rx#:[id number] Intake, IV Titration 238.705 54.260 32.132 Amount D5-0.45% NaCl with KCl 150 20Meq/l 1,000 ml @ 75 mls /hr IV .[id number] [facility] Rx#: [id number] Insulin Regular 100 unit 88.705 54.260 32.132 In Sodium Chloride 0.9% 100 ml @ 0.1 UNITS/KG/HR 9.85 mls/hr IV .[id number] [facility] Rx#:[id number] Oral 820 720 780 Output: Urine 0 2600 850 Other: Voiding Method Bedside Commode Urinal Urinal # Voids 1 # Bowel Movements 1 - Exam Physical Exam: Revealed 37-year-old white male in no distress Head: Atraumatic, normocephalic HEENT:[Neck is supple.] [No neck masses.] [No thyromegaly.] [No JVD.] Chest: [Clear throughout, no crackles, no rhonchi, no wheezes.] Cardiac Exam: [Normal S1 and S2, no S3 gallop, no murmur.] Abdomen: [Soft, nontender, no megaly, no rebound, no guarding, normal bowel sounds.] Extremities: [No clubbing, no edema, no cyanosis.] Neurological Exam: [No focal neurologic deficit.] Alert and oriented 3. Psychiatric: Normal mood affect and normal mental status exam. Skin: No rash - Labs CBC & Chem 7: 05/12/23 06:41 05/12/23 09:44 Labs: Abnormal Lab Results - Last 24 Hours (Table) 05/11/23 05/11/23 05/11/23 Range/Units 12:27 12:27 13:54 RBC (4.30-5.90) m/uL Hgb (13.0-17.5) gm/dL Hct (39.0-53.0) % Plt Count (150-450) k/uL Sodium 132 L 133 L (137-145) mmol/L Potassium (3.5-5.1) mmol/L Chloride 109 H 109 H (98-107) mmol/L Carbon Dioxide 12 L 12 L (22-30) mmol/L BUN (9-20) mg/dL Creatinine (0.66-1.25) mg/dL Glucose 223 H (74-99) mg/dL POC Glucose (mg/dL) 290 H (70-110) mg/dL Calcium 8.1 L (8.4-10.2) mg/dL Phosphorus 1.9 L (2.5-4.5) mg/dL Total Protein 5.2 L (6.3-8.2) g/dL Albumin 2.7 L (3.5-5.0) g/dL Urine Glucose (UA) (Negative) Urine Blood (Negative) 05/11/23 05/11/23 05/11/23 Range/Units 15:14 15:59 16:55 RBC (4.30-5.90) m/uL Hgb (13.0-17.5) gm/dL Hct (39.0-53.0) % Plt Count (150-450) k/uL Sodium 131 L (137-145) mmol/L Potassium (3.5-5.1) mmol/L Chloride 109 H (98-107) mmol/L Carbon Dioxide 12 L (22-30) mmol/L BUN (9-20) mg/dL Creatinine (0.66-1.25) mg/dL Glucose 343 H (74-99) mg/dL POC Glucose (mg/dL) 331 H 306 H (70-110) mg/dL Calcium 8.0 L (8.4-10.2) mg/dL Phosphorus (2.5-4.5) mg/dL Total Protein (6.3-8.2) g/dL Albumin (3.5-5.0) g/dL Urine Glucose (UA) (Negative) Urine Blood (Negative) 05/11/23 05/11/23 05/11/23 Range/Units 16:58 18:10 19:04 RBC (4.30-5.90) m/uL Hgb (13.0-17.5) gm/dL Hct (39.0-53.0) % Plt Count (150-450) k/uL Sodium (137-145) mmol/L Potassium (3.5-5.1) mmol/L Chloride (98-107) mmol/L Carbon Dioxide (22-30) mmol/L BUN (9-20) mg/dL Creatinine (0.66-1.25) mg/dL Glucose (74-99) mg/dL POC Glucose (mg/dL) 302 H 380 H 338 H (70-110) mg/dL Calcium (8.4-10.2) mg/dL Phosphorus (2.5-4.5) mg/dL Total Protein (6.3-8.2) g/dL Albumin (3.5-5.0) g/dL Urine Glucose (UA) (Negative) Urine Blood (Negative) 05/11/23 05/11/23 05/11/23 Range/Units 20:04 21:07 21:55 RBC (4.30-5.90) m/uL Hgb (13.0-17.5) gm/dL Hct (39.0-53.0) % Plt Count (150-450) k/uL Sodium (137-145) mmol/L Potassium (3.5-5.1) mmol/L Chloride (98-107) mmol/L Carbon Dioxide (22-30) mmol/L BUN (9-20) mg/dL Creatinine (0.66-1.25) mg/dL Glucose (74-99) mg/dL POC Glucose (mg/dL) 298 H 286 H 268 H (70-110) mg/dL Calcium (8.4-10.2) mg/dL Phosphorus (2.5-4.5) mg/dL Total Protein (6.3-8.2) g/dL Albumin (3.5-5.0) g/dL Urine Glucose (UA) (Negative) Urine Blood (Negative) 05/11/23 05/11/23 05/12/23 Range/Units 22:26 23:02 00:00 RBC (4.30-5.90) m/uL Hgb (13.0-17.5) gm/dL Hct (39.0-53.0) % Plt Count (150-450) k/uL Sodium (137-145) mmol/L Potassium (3.5-5.1) mmol/L Chloride (98-107) mmol/L Carbon Dioxide (22-30) mmol/L BUN (9-20) mg/dL Creatinine (0.66-1.25) mg/dL Glucose (74-99) mg/dL POC Glucose (mg/dL) 193 H 137 H (70-110) mg/dL Calcium (8.4-10.2) mg/dL Phosphorus (2.5-4.5) mg/dL Total Protein (6.3-8.2) g/dL Albumin (3.5-5.0) g/dL Urine Glucose (UA) 4+ H (Negative) Urine Blood Trace H (Negative) 05/12/23 05/12/23 05/12/23 Range/Units 00:34 01:00 01:59 RBC (4.30-5.90) m/uL Hgb (13.0-17.5) gm/dL Hct (39.0-53.0) % Plt Count (150-450) k/uL Sodium 136 L (137-145) mmol/L Potassium 3.3 L (3.5-5.1) mmol/L Chloride 113 H (98-107) mmol/L Carbon Dioxide 14 L (22-30) mmol/L BUN 6 L (9-20) mg/dL Creatinine (0.66-1.25) mg/dL Glucose 139 H (74-99) mg/dL POC Glucose (mg/dL) 130 H 162 H (70-110) mg/dL Calcium 8.0 L (8.4-10.2) mg/dL Phosphorus (2.5-4.5) mg/dL Total Protein (6.3-8.2) g/dL Albumin (3.5-5.0) g/dL Urine Glucose (UA) (Negative) Urine Blood (Negative) 05/12/23 05/12/23 05/12/23 Range/Units 03:02 04:10 05:05 RBC (4.30-5.90) m/uL Hgb (13.0-17.5) gm/dL Hct (39.0-53.0) % Plt Count (150-450) k/uL Sodium (137-145) mmol/L Potassium (3.5-5.1) mmol/L Chloride (98-107) mmol/L Carbon Dioxide (22-30) mmol/L BUN (9-20) mg/dL Creatinine (0.66-1.25) mg/dL Glucose (74-99) mg/dL POC Glucose (mg/dL) 206 H 238 H 215 H (70-110) mg/dL Calcium (8.4-10.2) mg/dL Phosphorus (2.5-4.5) mg/dL Total Protein (6.3-8.2) g/dL Albumin (3.5-5.0) g/dL Urine Glucose (UA) (Negative) Urine Blood (Negative) 05/12/23 05/12/23 05/12/23 Range/Units 05:08 06:05 06:41 RBC 4.08 L (4.30-5.90) m/uL Hgb 11.4 L (13.0-17.5) gm/dL Hct 32.7 L (39.0-53.0) % Plt Count 143 L (150-450) k/uL Sodium 134 L (137-145) mmol/L Potassium (3.5-5.1) mmol/L Chloride 111 H (98-107) mmol/L Carbon Dioxide 15 L (22-30) mmol/L BUN 5 L (9-20) mg/dL Creatinine 0.63 L (0.66-1.25) mg/dL Glucose 230 H (74-99) mg/dL POC Glucose (mg/dL) 232 H (70-110) mg/dL Calcium 8.1 L (8.4-10.2) mg/dL Phosphorus (2.5-4.5) mg/dL Total Protein 5.1 L (6.3-8.2) g/dL Albumin 2.6 L (3.5-5.0) g/dL Urine Glucose (UA) (Negative) Urine Blood (Negative) 05/12/23 05/12/23 05/12/23 Range/Units 06:52 08:01 09:07 RBC (4.30-5.90) m/uL Hgb (13.0-17.5) gm/dL Hct (39.0-53.0) % Plt Count (150-450) k/uL Sodium (137-145) mmol/L Potassium (3.5-5.1) mmol/L Chloride (98-107) mmol/L Carbon Dioxide (22-30) mmol/L BUN (9-20) mg/dL Creatinine (0.66-1.25) mg/dL Glucose (74-99) mg/dL POC Glucose (mg/dL) 238 H 287 H 319 H (70-110) mg/dL Calcium (8.4-10.2) mg/dL Phosphorus (2.5-4.5) mg/dL Total Protein (6.3-8.2) g/dL Albumin (3.5-5.0) g/dL Urine Glucose (UA) (Negative) Urine Blood (Negative) 05/12/23 05/12/23 05/12/23 Range/Units 09:44 10:15 11:07 RBC (4.30-5.90) m/uL Hgb (13.0-17.5) gm/dL Hct (39.0-53.0) % Plt Count (150-450) k/uL Sodium 134 L (137-145) mmol/L Potassium (3.5-5.1) mmol/L Chloride 112 H (98-107) mmol/L Carbon Dioxide 16 L (22-30) mmol/L BUN 5 L (9-20) mg/dL Creatinine (0.66-1.25) mg/dL Glucose 344 H (74-99) mg/dL POC Glucose (mg/dL) 323 H 334 H (70-110) mg/dL Calcium 7.9 L (8.4-10.2) mg/dL Phosphorus 2.2 L (2.5-4.5) mg/dL Total Protein 4.8 L (6.3-8.2) g/dL Albumin 2.4 L (3.5-5.0) g/dL Urine Glucose (UA) (Negative) Urine Blood (Negative) 05/12/23 Range/Units 12:04 RBC (4.30-5.90) m/uL Hgb (13.0-17.5) gm/dL Hct (39.0-53.0) % Plt Count (150-450) k/uL Sodium (137-145) mmol/L Potassium (3.5-5.1) mmol/L Chloride (98-107) mmol/L Carbon Dioxide (22-30) mmol/L BUN (9-20) mg/dL Creatinine (0.66-1.25) mg/dL Glucose (74-99) mg/dL POC Glucose (mg/dL) 239 H (70-110) mg/dL Calcium (8.4-10.2) mg/dL Phosphorus (2.5-4.5) mg/dL Total Protein (6.3-8.2) g/dL Albumin (3.5-5.0) g/dL Urine Glucose (UA) (Negative) Urine Blood (Negative) Assessment and Plan Assessment: Impression: Acute diabetic ketoacidosis, likely exacerbated by influenza A infection. Acute influenza A infection, see full course of Tamiflu Severe metabolic anion gap acidosis, secondary to above Acute kidney injury, prerenal related dehydration, resolved Hypovolemic hyponatremia Hyperkalemia, resolved Type 1 diabetes mellitus. Patient is normally on Lantus insulin 40 units twice a day, and he takes Humalog insulin with meals. Recommendation: Decrease IV fluid to 75 mL per hour Continue insulin drip/confusion and follow protocol Continue DKA protocol Continue to monitor in the ICU Continue to monitor labs and adjust electrolytes accordingly Not quite ready to transitioning the patient in the next 24 hours to Lantus insulin and Humalog insulin. Using sliding scale coverage Continue GI and DVT prophylaxis We'll continue to follow Time with Patient: Less than 30
[2023-05-12 14:03] LABS: Glucose,Whole Blood 230 mg/dL (70-110)
[2023-05-12 15:03] LABS: Glucose,Whole Blood 206 mg/dL (70-110)
[2023-05-12 16:20] LABS: Glucose,Whole Blood 184 mg/dL (70-110)
[2023-05-12 16:43] LABS: Potassium 3.8 mmol/L (3.5-5.1)
[2023-05-12 16:53] LABS: Glucose,Whole Blood 153 mg/dL (70-110)
[2023-05-12 18:03] LABS: Glucose,Whole Blood 161 mg/dL (70-110)
[2023-05-12 19:06] LABS: Glucose,Whole Blood 159 mg/dL (70-110)
[2023-05-12 20:03] LABS: Glucose,Whole Blood 158 mg/dL (70-110)
[2023-05-12 20:56] LABS: Glucose,Whole Blood 147 mg/dL (70-110)
[2023-05-12 22:05] LABS: Glucose,Whole Blood 158 mg/dL (70-110)
[2023-05-12 22:55] LABS: Potassium 3.6 mmol/L (3.5-5.1)
[2023-05-12 23:52] LABS: Glucose,Whole Blood 180 mg/dL (70-110)
[2023-05-13 01:34] LABS: Glucose,Whole Blood 222 mg/dL (70-110)
[2023-05-13] MEDS: POTASSIUM CHLORIDE ER 20 MEQ TAB.ER PO SCH ×2 (01:49→06:41)
[2023-05-13 02:29] LABS: Glucose,Whole Blood 265 mg/dL (70-110)
[2023-05-13 03:53] LABS: Glucose,Whole Blood 238 mg/dL (70-110)
[2023-05-13 04:50] LABS: Glucose,Whole Blood 231 mg/dL (70-110)
[2023-05-13 05:44] LABS: HCT 33.1 % (39.0-53.0); HGB 11.7 gm/dL (13.0-17.5); MCH 28.7 pg (25.0-35.0); MCHC 35.5 g/dL (31.0-37.0); MCV 80.8 fL (80.0-100.0); Platelet Count 178 k/uL (150-450); RDW 14.5 % (11.5-15.5); WBC 6.7 k/uL (3.8-10.6)
[2023-05-13 05:58] LABS: Glucose,Whole Blood 215 mg/dL (70-110)
[2023-05-13 05:59] LABS: African American GFR (CKD) >90 (>60 ml/min/1.73 sqM); Anion Gap 9 mmol/L; Blood Urea Nitrogen 6 mg/dL (9-20); Calcium 8.5 mg/dL (8.4-10.2); Carbon Dioxide 17 mmol/L (22-30); Chloride 110 mmol/L (98-107); Glucose 238 mg/dL (74-99); Non-African American GFR(CKD) >90 (>60 ml/min/1.73 sqM); Potassium 3.9 mmol/L (3.5-5.1); Sodium 136 mmol/L (137-145)
[2023-05-13 06:45] LABS: Glucose,Whole Blood 225 mg/dL (70-110)
[2023-05-13 07:57] LABS: Glucose,Whole Blood 252 mg/dL (70-110)
[2023-05-13 10:06] LABS: Glucose,Whole Blood 330 mg/dL (70-110)
[2023-05-13] MEDS: INSULIN DETEMIR (LEVEMIR) 100 UNIT/ML SYR SQ SCH (11:29)
[2023-05-13] MEDS: SODIUM CHLORIDE 0.9% 1,000 ML IV SCH (11:30)
[2023-05-13 11:36] LABS: Glucose,Whole Blood 252 mg/dL (70-110)
--- NOTE | 2023-05-13 11:38 | P.PN ---
Subjective Progress Note Date: 05/13/23 * 37-year-old gentleman with past medical history significant for diabetes mellitus type 1, presents to the emergency department with complains of runny nose, nasal congestion, sore throat, fever and shortness of breath. Patient was noted to have symptom onset about one week prior to presentation. Patient had upper respiratory illness. Patient was in our emergency department on 05/05 and was tested positive for influenza. Patient was given Tamiflu. Patient had poor appetite in the following days with increased thirst and trouble managing blood sugars. Patient was noted to have significant nausea and vomiting. Patient presented to the emergency department noted to have diabetic ketoacidosis. Upon arrival blood glucose was noted in the high 500s. Serum carbon dioxide less than 5 and significant ketonuria. Patient was started on DKA protocol. Patient was started on insulin drip after 2 L normal syndrome fluid bolus given. Initial lactate on admission was 4.3 with improved post hydration. Patient was also noted to have high potassium which improved. Patient admitted to ICU for further management * 05/11/23: Patient seen and evaluated bedside, patient does complain of cough, having productive phlegm, continue to remain on insulin drip and D5 with potassium supplementation, sodium potassium levels reviewed, electrolyte panel ordered continue to monitor serum sodium levels phosphorous improving. Patient on clear liquid diet., Patient followed up by medical ICU team as well. Electrolyte protocol ordered plan discussed with nursing staff * 05/12: Patient seen and evaluated bedside, patient has been advanced to diabetic diet, serum bicarbonate improving as well, continue IV insulin along with D5 supplementation continue on electrolyte protocol. Patient to remain in ICU, continue to monitor electrolytes on DKA protocol * 05/13: Patient seen and evaluated bedside, patient able to tolerate diet and blood glucose ranging in mid 200s, will wean off insulin drip and start p atient on Lantus and short-acting insulin along with correctional insulin REVIEW OF SYSTEMS: Fever, malaise, cough, runny nose improved 05/12 CONSTITUTIONAL: Fever, malaise, cough, runny nose HEENT: No recent visual problems or hearing problems. Denied any sore throat. CARDIOVASCULAR: No chest pain, orthopnea, PND, no palpitations, no syncope. PULMONARY: Fever, malaise, cough, runny nose, shortness of breath. GASTROINTESTINAL: No diarrhea, no nausea, no vomiting, no abdominal pain. NEUROLOGICAL: No headaches, no weakness, no numbness. HEMATOLOGICAL: Denies any bleeding or petechiae. GENITOURINARY: Denies any burning micturition, frequency, or urgency. MUSCULOSKELETAL/RHEUMATOLOGICAL: Denies any joint pain, swelling, or any muscle pain. ENDOCRINE: Denies any polyuria or polydipsia. PHYSICAL EXAMINATION: GENERAL: The patient is alert and oriented x3, ill appearance HEENT: Pupils are round and equally reacting to light. EOMI. CARDIOVASCULAR: S1 and S2 present. No murmurs, rubs, or gallops. PULMONARY: Improved breath sounds bilaterally him a tachycardia noted ABDOMEN: Soft, nontender, nondistended, normoactive bowel sounds. No palpable organomegaly. MUSCULOSKELETAL: No joint swelling or deformity. EXTREMITIES: No cyanosis, clubbing, or pedal edema. NEUROLOGICAL: Gross neurological examination did not reveal any focal deficits. SKIN: No rashes. Objective - Vital Signs Vital signs: Vital Signs Temp 99.1 F 05/13/23 08:00 Pulse 101 H 05/13/23 11:00 Resp 43 H 05/13/23 11:00 BP 129/76 05/13/23 11:00 Pulse Ox 95 05/13/23 11:00 FiO2 Intake & Output 05/12/23 05/13/23 05/13/23 18:59 06:59 18:59 Intake Total 3499.035 8483.388 3499.787 Output Total 3700 3250 700 Balance -200.965 -1968.787 574.787 Weight 109.8 kg Intake: IV 1460 855 400 Azithromycin 500 mg In 250 Sodium Chloride 0.9% 250 ml @ 250 mls/hr IVPB DAILY [facility] Rx#:[id number] D5-0.45% NaCl with KCl 1200 825 300 20Meq/l 1,000 ml @ 75 mls /hr IV .[id number] [facility] Rx#: [id number] Invasive Line 3 10 30 Sodium Chloride 0.9% 1, 100 000 ml @ 100 mls/hr IV . Q10H [facility] Rx#:[id number] Intake, IV Titration 59.035 66.213 34.787 Amount Insulin Regular 100 unit 59.035 66.213 34.787 In Sodium Chloride 0.9% 100 ml @ 0.1 UNITS/KG/HR 9.85 mls/hr IV .[id number] [facility] Rx#:[id number] Oral 1980 360 840 Output: Urine 3700 3250 700 Other: Voiding Method Urinal Urinal Urinal # Bowel Movements 1 - Labs CBC & Chem 7: 05/13/23 05:27 05/13/23 05:27 Labs: Abnormal Lab Results - Last 24 Hours (Table) 05/12/23 05/12/23 05/12/23 Range/Units 12:04 13:02 14:02 RBC (4.30-5.90) m/uL Hgb (13.0-17.5) gm/dL Hct (39.0-53.0) % Sodium (137-145) mmol/L Chloride (98-107) mmol/L Carbon Dioxide (22-30) mmol/L BUN (9-20) mg/dL Creatinine (0.66-1.25) mg/dL Glucose (74-99) mg/dL POC Glucose (mg/dL) 239 H 267 H 230 H (70-110) mg/dL 05/12/23 05/12/23 05/12/23 Range/Units 15:01 16:03 16:18 RBC (4.30-5.90) m/uL Hgb (13.0-17.5) gm/dL Hct (39.0-53.0) % Sodium 136 L (137-145) mmol/L Chloride 111 H (98-107) mmol/L Carbon Dioxide 18 L (22-30) mmol/L BUN (9-20) mg/dL Creatinine (0.66-1.25) mg/dL Glucose (74-99) mg/dL POC Glucose (mg/dL) 206 H 184 H (70-110) mg/dL 05/12/23 05/12/23 05/12/23 Range/Units 16:52 18:02 19:03 RBC (4.30-5.90) m/uL Hgb (13.0-17.5) gm/dL Hct (39.0-53.0) % Sodium (137-145) mmol/L Chloride (98-107) mmol/L Carbon Dioxide (22-30) mmol/L BUN (9-20) mg/dL Creatinine (0.66-1.25) mg/dL Glucose (74-99) mg/dL POC Glucose (mg/dL) 153 H 161 H 159 H (70-110) mg/dL 05/12/23 05/12/23 05/12/23 Range/Units 20:01 20:55 22:03 RBC (4.30-5.90) m/uL Hgb (13.0-17.5) gm/dL Hct (39.0-53.0) % Sodium (137-145) mmol/L Chloride (98-107) mmol/L Carbon Dioxide (22-30) mmol/L BUN (9-20) mg/dL Creatinine (0.66-1.25) mg/dL Glucose (74-99) mg/dL POC Glucose (mg/dL) 158 H 147 H 158 H (70-110) mg/dL 05/12/23 05/12/23 05/13/23 Range/Units 22:34 23:50 01:32 RBC (4.30-5.90) m/uL Hgb (13.0-17.5) gm/dL Hct (39.0-53.0) % Sodium 136 L (137-145) mmol/L Chloride 112 H (98-107) mmol/L Carbon Dioxide 19 L (22-30) mmol/L BUN (9-20) mg/dL Creatinine (0.66-1.25) mg/dL Glucose (74-99) mg/dL POC Glucose (mg/dL) 180 H 222 H (70-110) mg/dL 05/13/23 05/13/23 05/13/23 Range/Units 02:27 03:50 04:48 RBC (4.30-5.90) m/uL Hgb (13.0-17.5) gm/dL Hct (39.0-53.0) % Sodium (137-145) mmol/L Chloride (98-107) mmol/L Carbon Dioxide (22-30) mmol/L BUN (9-20) mg/dL Creatinine (0.66-1.25) mg/dL Glucose (74-99) mg/dL POC Glucose (mg/dL) 265 H 238 H 231 H (70-110) mg/dL 05/13/23 05/13/23 05/13/23 Range/Units 05:27 05:27 05:56 RBC 4.10 L (4.30-5.90) m/uL Hgb 11.7 L (13.0-17.5) gm/dL Hct 33.1 L (39.0-53.0) % Sodium 136 L (137-145) mmol/L Chloride 110 H (98-107) mmol/L Carbon Dioxide 17 L (22-30) mmol/L BUN 6 L (9-20) mg/dL Creatinine 0.64 L (0.66-1.25) mg/dL Glucose 238 H (74-99) mg/dL POC Glucose (mg/dL) 215 H (70-110) mg/dL 05/13/23 05/13/23 05/13/23 Range/Units 06:44 07:55 10:05 RBC (4.30-5.90) m/uL Hgb (13.0-17.5) gm/dL Hct (39.0-53.0) % Sodium (137-145) mmol/L Chloride (98-107) mmol/L Carbon Dioxide (22-30) mmol/L BUN (9-20) mg/dL Creatinine (0.66-1.25) mg/dL Glucose (74-99) mg/dL POC Glucose (mg/dL) 225 H 252 H 330 H (70-110) mg/dL 05/13/23 Range/Units 11:35 RBC (4.30-5.90) m/uL Hgb (13.0-17.5) gm/dL Hct (39.0-53.0) % Sodium (137-145) mmol/L Chloride (98-107) mmol/L Carbon Dioxide (22-30) mmol/L BUN (9-20) mg/dL Creatinine (0.66-1.25) mg/dL Glucose (74-99) mg/dL POC Glucose (mg/dL) 252 H (70-110) mg/dL Assessment and Plan Assessment: Assessment and plan * Diabetic ketoacidosis * Acute influenza A infection * Severe electrolyte abnormality and Metabolic acidosis * Acute kidney injury secondary to prerenal intravascular volume depletion * Hyperkalemia resolved * Sepsis secondary to viral etiology * Acute hyponatremia * In regards to DKA, patient started on protocol, continue electrolyte panel, appropriately resuscitated with fluid, patient to be transitioned from IV insulin and D5W to subcu Lantus, NovoLog on top of correctional insulin * In regards to influenza infection completed Tamiflu, continue breathing treatments as needed, Mucinex ordered, continue azithromycin day 3/3 * In regards to renal failure continue to follow up basal metabolic panel * In regards to hyperkalemia, patient was on insulin drip, follow potassium levels are normal limits * In regards to sepsis secondary to viral etiology, continue to monitor lactate levels which is elevated secondary to diabetic ketoacidosis * In regards to hyponatremia continue to monitor serum sodium levels * CODE STATUS is full code
[2023-05-13] MEDS: INSULIN ASPART (NovoLOG) 100 UNIT/ML VIAL SQ SCH ×2 (12:07→17:01)
--- NOTE | 2023-05-13 13:56 | P.PN ---
Subjective Progress Note Date: 05/13/23 Principal diagnosis: Acute diabetic ketoacidosis I am seeing this patient in consultation today 05/10/2023 in the intensive care unit for acute diabetic ketoacidosis. Patient is also positive for influenza A. Patient is a 37-year-old white male with past medical history significant for type 1 diabetes mellitus. Patient is reporting URI-like symptoms starting approximately 8 days ago. This included runny nose, sore throat, nasal congestion, dry cough, fever and also mild shortness of breath. His girlfriend tested positive for influenza A earlier in the week. He did come to the ER on May 05, and was felt to have influenza A. Initial RNA test was negative. He was started on Tamiflu that day. Over the last couple days, his appetite has been poor. He's had increased thirst. He has had trouble managing his blood sugars at home. They have been running high despite taking insulin. Yesterday, he started having significant nausea and vomiting. He was unable to keep down fluids. He did come to the emergency room yesterday afternoon, and was found to be in diabetic ketoacidosis. On arrival, blood glucose was 584, serum CO2 less than 5, anion gap unmeasurable, and ketonuria. He started on the DKA protocol. Insulin currently infusing at 12 units per hour. D5 Whalf normal salineKCl 20 mEq infusing at 150 ML's per hour. He was fluid resuscitated with 2 L normal saline bolus in the emergency room. Patient was also found have an acute kidney injury. BMP initially showed a sodium of 129, potassium 6.2, chloride 92, BUN 37, creatinine 2.09, glucose 584. Lactic acid was 4.3 and is down to 1.5. Hyperkalemia has since improved and is down to 4.9. EKG shows sinus tachycardia with a rate of 112 bpm. No hyperacute T waves or QRS widening. CBC on arrival shows a WBC count of 17.2, hemoglobin 17.3, hematocrit 55.1, platelets 297. He is afebrile. He was started on Tamiflu. Patient is currently lying in bed, on room air, in no acute distress. Vital signs are stable. He is still tachycardic with a rate of 114 bpm. Blood pressure is normotensive. He will be monitored in the intensive care unit until his DKA resolves. 05/11/23 Patient remains in, remains on the DKA protocol. Patient is still on insulin drip at 2.24 units per hour, he is also on D5 4 5 with 20 of potassium at 150 ML per hour. Continues to have relatively low bicarb, his anion gap has closed, patient continues to have cough, some shortness of breath, no fever, no chills, and he is recovering from influenza A infection. Patient did receive a full course of Tamiflu. Basic metabolic profile today is noted, bicarb remains low at 12 and his anion gap is also 12 blood sugar is 188 Reevaluated today on 05/12/23, patient remains in the ICU, clinically he is feel ing much better, nonetheless his blood sugars remain high, and bicarb remains 15 with closure of his anion gap. Patient is on IV fluid D5 4 5 at 1 50 mL per hour and I cut it down to 75 mL per hour patient is already getting liquids orally. Still requiring 4.56 units of insulin per hour. And he is not quite ready to be transitioned to subcu insulin including Lantus insulin and Humalog insulin. At this point we'll continue present treatment plan as per the DKA protocol, and we'll continue to monitor the patient in the ICU for the next 24 hours. Doubt RTA in this patient,/type IV RTA, urine pH is 6.0, it was 5.5 yesterday, plasma renin and aldosterone are pending. Looking at patient's pr evious labs, his bicarb has been in the 20th + range. Reevaluated today on 05/13/2023, continues to do well clinically, feeling much better, patient remains on insulin drip at 6.78 units per hour, however the patient had no further anion gap, and his blood sugar seems to be much better controlled, it is 252 this morning, hence I will transition the patient to Lantus insulin 40 units subcu twice a day and will start him on a sliding scale as per protocol. Will change his IV fluid to 0.9 normal saline at 100 mL/h and will try to arrange for the patient to transfer out of the ICU to a regular m edical floor. Pulmonary-campoverde patient is feeling better, and he recovered fully from his influenza infection Objective - Vital Signs Vital signs: Vital Signs Temp 99.1 F 11/26/23 08:00 Pulse 101 H 05/13/23 11:00 Resp 43 H 05/13/23 11:00 BP 129/76 05/13/23 11:00 Pulse Ox 95 05/13/23 11:00 FiO2 Intake & Output 05/12/23 05/13/23 05/13/23 18:59 06:59 18:59 Intake Total 3499.035 2398.935 3832.787 Output Total 3700 3250 700 Balance -200.965 -1968.787 574.787 Weight 109.8 kg Intake: IV 1460 855 400 Azithromycin 500 mg In 250 Sodium Chloride 0.9% 250 ml @ 250 mls/hr IVPB DAILY [facility] Rx#:[id number] D5-0.45% NaCl with KCl 1200 825 300 20Meq/l 1,000 ml @ 75 mls /hr IV .[id number] [facility] Rx#: [id number] Invasive Line 3 10 30 Sodium Chloride 0.9% 1, 100 000 ml @ 100 mls/hr IV . Q10H [facility] Rx#:[id number] Intake, IV Titration 59.035 66.213 34.787 Amount Insulin Regular 100 unit 59.035 66.213 34.787 In Sodium Chloride 0.9% 100 ml @ 0.1 UNITS/KG/HR 9.85 mls/hr IV .[id number] [facility] Rx#:[id number] Oral 1980 360 840 Output: Urine 3700 3250 700 Other: Voiding Method Urinal Urinal Urinal # Bowel Movements 1 - Exam Physical Exam: Revealed 37-year-old white male in no distress, on room air Head: Atraumatic, normocephalic HEENT:[Neck is supple.] [No neck masses.] [No thyromegaly.] [No JVD.] Chest: [Clear throughout, no crackles, no rhonchi, no wheezes.] Cardiac Exam: [Normal S1 and S2, no S3 gallop, no murmur.] Abdomen: [Soft, nontender, no megaly, no rebound, no guarding, normal bowel sounds.] Extremities: [No clubbing, no edema, no cyanosis.] Neurological Exam: [No focal neurologic deficit.] Alert and oriented 3. Psychiatric: Normal mood affect and normal mental status exam. Skin: No rash - Labs CBC & Chem 7: 05/13/23 05:27 05/13/23 05:27 Labs: Abnormal Lab Results - Last 24 Hours (Table) 05/12/23 05/12/23 05/12/23 Range/Units 14:02 15:01 16:03 RBC (4.30-5.90) m/uL Hgb (13.0-17.5) gm/dL Hct (39.0-53.0) % Sodium 136 L (137-145) mmol/L Chloride 111 H (98-107) mmol/L Carbon Dioxide 18 L (22-30) mmol/L BUN (9-20) mg/dL Creatinine (0.66-1.25) mg/dL Glucose (74-99) mg/dL POC Glucose (mg/dL) 230 H 206 H (70-110) mg/dL 05/12/23 05/12/23 05/12/23 Range/Units 16:18 16:52 18:02 RBC (4.30-5.90) m/uL Hgb (13.0-17.5) gm/dL Hct (39.0-53.0) % Sodium (137-145) mmol/L Chloride (98-107) mmol/L Carbon Dioxide (22-30) mmol/L BUN (9-20) mg/dL Creatinine (0.66-1.25) mg/dL Glucose (74-99) mg/dL POC Glucose (mg/dL) 184 H 153 H 161 H (70-110) mg/dL 05/12/23 05/12/23 05/12/23 Range/Units 19:03 20:01 20:55 RBC (4.30-5.90) m/uL Hgb (13.0-17.5) gm/dL Hct (39.0-53.0) % Sodium (137-145) mmol/L Chloride (98-107) mmol/L Carbon Dioxide (22-30) mmol/L BUN (9-20) mg/dL Creatinine (0.66-1.25) mg/dL Glucose (74-99) mg/dL POC Glucose (mg/dL) 159 H 158 H 147 H (70-110) mg/dL 05/12/23 05/12/23 05/12/23 Range/Units 22:03 22:34 23:50 RBC (4.30-5.90) m/uL Hgb (13.0-17.5) gm/dL Hct (39.0-53.0) % Sodium 136 L (137-145) mmol/L Chloride 112 H (98-107) mmol/L Carbon Dioxide 19 L (22-30) mmol/L BUN (9-20) mg/dL Creatinine (0.66-1.25) mg/dL Glucose (74-99) mg/dL POC Glucose (mg/dL) 158 H 180 H (70-110) mg/dL 05/13/23 05/13/23 05/13/23 Range/Units 01:32 02:27 03:50 RBC (4.30-5.90) m/uL Hgb (13.0-17.5) gm/dL Hct (39.0-53.0) % Sodium (137-145) mmol/L Chloride (98-107) mmol/L Carbon Dioxide (22-30) mmol/L BUN (9-20) mg/dL Creatinine (0.66-1.25) mg/dL Glucose (74-99) mg/dL POC Glucose (mg/dL) 222 H 265 H 238 H (70-110) mg/dL 05/13/23 05/13/23 05/13/23 Range/Units 04:48 05:27 05:27 RBC 4.10 L (4.30-5.90) m/uL Hgb 11.7 L (13.0-17.5) gm/dL Hct 33.1 L (39.0-53.0) % Sodium 136 L (137-145) mmol/L Chloride 110 H (98-107) mmol/L Carbon Dioxide 17 L (22-30) mmol/L BUN 6 L (9-20) mg/dL Creatinine 0.64 L (0.66-1.25) mg/dL Glucose 238 H (74-99) mg/dL POC Glucose (mg/dL) 231 H (70-110) mg/dL 05/13/23 05/13/23 05/13/23 Range/Units 05:56 06:44 07:55 RBC (4.30-5.90) m/uL Hgb (13.0-17.5) gm/dL Hct (39.0-53.0) % Sodium (137-145) mmol/L Chloride (98-107) mmol/L Carbon Dioxide (22-30) mmol/L BUN (9-20) mg/dL Creatinine (0.66-1.25) mg/dL Glucose (74-99) mg/dL POC Glucose (mg/dL) 215 H 225 H 252 H (70-110) mg/dL 05/13/23 05/13/23 Range/Units 10:05 11:35 RBC (4.30-5.90) m/uL Hgb (13.0-17.5) gm/dL Hct (39.0-53.0) % Sodium (137-145) mmol/L Chloride (98-107) mmol/L Carbon Dioxide (22-30) mmol/L BUN (9-20) mg/dL Creatinine (0.66-1.25) mg/dL Glucose (74-99) mg/dL POC Glucose (mg/dL) 330 H 252 H (70-110) mg/dL Assessment and Plan Assessment: Impression: Acute diabetic ketoacidosis, likely exacerbated by influenza A infection. Acute influenza A infection, see full course of Tamiflu Severe metabolic anion gap acidosis, secondary to above Acute kidney injury, prerenal related dehydration, resolved Hypovolemic hyponatremia Hyperkalemia, resolved Type 1 diabetes mellitus. Patient is normally on Lantus insulin 40 units twice a day, and he takes Humalog insulin with meals. Recommendation: Change IV fluid to 0.9 normal saline at 100 mL per hour Start Lantus insulin 40 units subcu twice a day as normally given to him at home by his line assigner Start sliding scale coverage Transfer patient to a regular medical floor Continue to monitor electrolytes Possible discharge planning in the next 24 hours if he continues to do well Patient should have follow-up with his line assigner all his discharge. Will follow as needed Time with Patient: Less than 30
[2023-05-13 16:52] LABS: Glucose,Whole Blood 230 mg/dL (70-110)
[2023-05-13 21:44] LABS: Glucose,Whole Blood 146 mg/dL (70-110)
[2023-05-13 23:26] VITALS: RESP 18
[2023-05-14 07:04] LABS: Glucose,Whole Blood 88 mg/dL (70-110)
[2023-05-14 07:56] VITALS: BP 146/82; PULSE 103; TEMP 98.3
[2023-05-14 11:00] LABS: BUN/Creat Ratio 10.43 Ratio (12.00-20.00); Blood Urea Nitrogen 7.3 mg/dL (9.0-27.0); Calcium 8.6 mg/dL (8.7-10.3); Carbon Dioxide 22.6 mmol/L (21.6-31.8); Chloride 110 mmol/L (96-109); Glucose 93 mg/dL (70-110); Potassium 3.7 mmol/L (3.5-5.5); Sodium 143 mmol/L (135-145)
--- NOTE | 2023-05-21 14:52 | P.DS ---
Providers Date of admission: 05/09/23 17:47 Expected date of discharge: 04/20/23 Attending physician: Kamilla Mccray Consults: 05/09/23 17:49 Consult Physician Routine Consulting Provider: Jorge Kowalski Consult Reason/Comments: dka Do you want consulting provider notified?: Yes Primary care physician: Luis Fernando Delgado [facility] Course: Final diagnosis Diabetic ketoacidosis Acute influenza A infection Severe electrolyte abnormality and Metabolic acidosis, improved Acute kidney injury secondary to prerenal intravascular volume depletion, improved Hyperkalemia resolved Sepsis secondary to viral etiology Acute hyponatremia Obesity with a BMI 33.8 GI prophylaxis DVT prophylaxis Full code Discharge disposition Patient is being discharged in a stable condition with guarded prognosis to home. Patient will follow-up with Dr. Delgado in the outpatient setting upon discharge. Patient is to continue with current medications and complete Tamiflu with close outpatient follow-up with endocrine as scheduled. Total time taken is greater than 35 minutes. Hospital course This is a 38-year-old male who was recently admitted with acute influenza a infection along with DKA and uncontrolled diabetes. Patient was on DKA protocol and started on Tamiflu and also being followed with pulmonary. Blood sugars have improved and patient will continue on current regimen and recommend Accu- Cheks before meals and at bedtime and keeping a diary of all readings and following up with endocrine in the outpatient setting. Patient has been cleared by pulmonary for discharge home today. Patient to continue Tamiflu to complete the course and would like to go home. Please refer to pulmonary notes for further HPI. Currently no reports of chest pain, shortness of breath, or palpitations. Patient is afebrile. No reports of nausea or vomiting and patient is tolerating diet. Patient will be discharged home today guarded prognosis. Physical exam: Gen: This is a 38-year-old male who is awake, alert and oriented 3, well- developed, well-nourished, obese HEENT: Head is atraumatic, normocephalic. Pupils equal, round. Sclerae is anicteric. NECK: Supple. No JVD. No lymphadenopathy. No thyromegaly. LUNGS: diminished breath sounds bilaterally with no heezes or rhonchi. No intercostal retractions. HEART: Regular rate and rhythm. No murmur. ABDOMEN: Soft. Bowel sounds are present. No masses. No tenderness. EXTREMITIES: No pedal edema. No calf tenderness. NEUROLOGICAL: Patient is awake, alert and oriented x3. Cranial nerves 2 through 12 are grossly intact. Please refer to medication reconciliation sheet for a list of medications. The impression and plan of care has been dictated by Ev Stephens, Nurse Practitioner as directed. Dr. Mahendra MD I have performed a history and examination and MDM of this patient, discussed the same with the dictator, and agree with the dictator's assessment and plan as written ,documented as a scribe. Based on total visit time, I have performed more than 50% of the visit. Patient Condition at Discharge: Fair Plan - Discharge Summary New Discharge Prescriptions: New guaiFENesin [Mucinex] 600 mg PO Q12HR 10 Days #20 tab Pantoprazole [Protonix] 40 mg PO AC-BRKFST #15 tab Acetaminophen Tab [Tylenol] 650 mg PO Q6HR PRN tab PRN Reason: Fever And/ Or Pain Continue Oseltamivir Phosphate 75 mg PO BID #10 capsule Insulin Glargine,Hum.rec.anlog [Lantus Solostar Pen] 40 units SQ BID Prochlorperazine [Compazine] 5 mg PO DIRECTED PRN PRN Reason: Nausea Insulin Aspart [NovoLOG Flexpen] 40 units SQ TID-W/MEALS Insulin Aspart [NovoLOG Flexpen] See Protocol SQ TID-W/MEALS Discharge Medication List Oseltamivir Phosphate 75 mg PO BID #10 capsule 05/05/23 [Rx] Insulin Aspart [NovoLOG Flexpen] 40 units SQ TID-W/MEALS 05/09/23 [History] Insulin Aspart [NovoLOG Flexpen] See Protocol SQ TID-W/MEALS 05/09/23 [History] Insulin Glargine,Hum.rec.anlog [Lantus Solostar Pen] 40 units SQ BID 05/09/23 [History] Prochlorperazine [Compazine] 5 mg PO DIRECTED PRN 05/09/23 [History] Acetaminophen Tab [Tylenol] 650 mg PO Q6HR PRN tab 05/14/23 [Rx] Pantoprazole [Protonix] 40 mg PO AC-BRKFST #15 tab 05/14/23 [Rx] guaiFENesin [Mucinex] 600 mg PO Q12HR 10 Days #20 tab 05/14/23 [Rx] Follow up Appointment(s)/Referral(s): Deshawn Eli MD [REFERRING] - 05/24/23 10:00 am (appointment w/ Dania Magallanes NP) Luis Fernando Delgado DO [Primary Care Provider] - 05/18/23 10:30 am (appointment with Antonio BROOKS) Patient Instructions/Handouts: Guaifenesin (By mouth), Pantoprazole (By mouth) Activity/Diet/Wound Care/Special Instructions: activity limited until follow up continue taking medications as prescribed continue monitoring blood sugars and keep a diary of all readings for follow up follow up with endocrine outpatient Discharge Disposition: HOME SELF-CARE
== END 2023-05-14 12:01 | disposition home or self-care (01) | DRG 720 ==
LOC: EC 15:43 → 2SICU 17:47 → 5NMEDONC 05-13 19:45
PROVIDERS: ADMIT Hospitalist; ATTEND Hospitalist
DX: A41.89 Other specified sepsis (principal); E10.10 Type 1 diabetes mellitus with ketoacidosis without coma; N17.9 Acute kidney failure, unspecified; E87.1 Hypo-osmolality and hyponatremia; E66.9 Obesity, unspecified; Z68.33 Body mass index [BMI] 33.0-33.9, adult; E87.5 Hyperkalemia; E86.1 Hypovolemia; E86.0 Dehydration; J10.1 Influenza due to other identified influenza virus with other respiratory manifestations; Z20.822 Contact with and (suspected) exposure to COVID-19; Z79.4 Long term (current) use of insulin; Z28.310 Unvaccinated for COVID-19; Z87.19 Personal history of other diseases of the digestive system
CPT/HCPCS: 36415; 71045; 80048; 80051; 80053; 81001; 82009; 82088; 82565; 82803; 82947; 83036; 83605; 83690; 83735; 84100; 84244; 84520; 85025; 85027; 86140; 87636; 93005; 94640; 96360; 96361; 99291

== ENCOUNTER → 2023-05-29 | Outpatient (CLI) | payer OTHER ==
--- NOTE | 2023-05-29 13:56 | US ---
EXAMINATION TYPE: US venous doppler duplex LE LT DATE OF EXAM: 05/29/2023 1:42 PM COMPARISON: NONE CLINICAL INDICATION: Male, 38 years old with history of LLE Swelling; R06.0; No hx of DVT. Patient do es not take blood thinners. Swelling left foot. SIDE PERFORMED: Left TECHNIQUE: The lower extremity deep venous system is examined utilizing real time linear array sonog janelle with graded compression, doppler sonography and color-flow sonography. VESSELS IMAGED: Common Femoral Vein Deep Femoral Vein Greater Saphenous Vein * Femoral Vein Popliteal Vein Small Saphenous Vein * Proximal Calf Veins (* superficial vessels) Left Leg: No evidence of DVT. IMPRESSION: 1. Left lower extremity ultrasound negative for deep venous thrombosis.
== END | disposition home or self-care (01) ==
LOC: RADUSWWP 13:09
PROVIDERS: ATTEND Family Medicine
DX: R60.0 Localized edema (principal)